=== PATIENT | male | born 1935 | race Caucasian/White ===

== ENCOUNTER → 2016-03-04 | Outpatient (CLI) | payer OTHER | LOC: MMPC 09:00 | PROVIDERS: ATTEND Family Medicine | DX: J20.9 Acute bronchitis, unspecified (principal); R05 Cough; F17.210 Nicotine dependence, cigarettes, uncomplicated | CPT/HCPCS: 99213; G0463 ==

== ENCOUNTER → 2016-05-01 | Outpatient (CLI) | payer OTHER | LOC: MMPC 09:00 | PROVIDERS: ATTEND Family Medicine | DX: M54.5 Low back pain (principal); F32.0 Major depressive disorder, single episode, mild | CPT/HCPCS: 99213; G0463 ==

== ENCOUNTER 2016-06-02 10:45 | Inpatient (IN) | payer OTHER ==
[2016-06-02] MEDS ORDERED: Sodium Chloride 0.9% 1,000 ML PRIMARY IV ONE (11:06)
--- NOTE | 2016-06-02 11:10 | EKG ---
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
[2016-06-02 11:26] LABS: VENOUS PH 7.37 (7.32-7.42)
[2016-06-02 11:32] LABS: HEMOGLOBIN 17.2 g/dL (14.0-18.0); MEAN CORPUSCULAR HEMOGLOBIN 37.6 PG (27-31); MEAN CORPUSCULAR VOLUME 100.4 FL (80-90); RED BLOOD COUNT 4.58 10^6/uL (4.70-6.10)
[2016-06-02 11:33] LABS: BASOPHILS % (AUTO) 0.2 % (0-1); EOSINOPHILS % (AUTO) 0.6 % (0-8); MEAN CORPUSCULAR HGB CONC 37.4 g/dL (33-37); MEAN PLATELET VOLUME 10.1 FL (7.4-12.2); MONOCYTES % (AUTO) 12.3 % (5-15); NEUTROPHILS % (AUTO) 67.5 % (50-80)
[2016-06-02 11:34] LABS: BASOPHILS # (AUTO) 0.02 10*3/UL; EOSINOPHILS # (AUTO) 0.06 10*3/UL; LYMPHOCYTES # (AUTO) 1.82 10*3/uL; MONOCYTES # (AUTO) 1.17 10*3/UL (0.3-0.8); NEUTROPHILS # (AUTO) 6.41 10*3/UL; PLATELET MORPHOLOGY COMMENT NORMAL MORPHOLOGY (NORM); RBC MORPHOLOGY COMMENT NORMAL MORPHOLOGY (NORM); WBC MORPHOLOGY COMMENT NORMAL MORPHOLOGY (NORM)
[2016-06-02 11:42] LABS: BUN/CREATININE RATIO 17.14 (6-20); CALCIUM 9.3 mg/dL (8.7-10.7); SERUM ALBUMIN 4.4 g/dL (3.5-4.8)
--- NOTE | 2016-06-02 11:55 | DI ---
AP CHEST X-RAY, 06/02/2016 11:06 AM : Clinical History: Hypoxia. Chest pain. Previous Exam: 10/06/2014. There is no acute soft tissue or bony abnormality. There is mild cardiomegaly for this projection, bu t without CHF. Discoid atelectasis is present in both costophrenic angles. There is no acute infiltra te or effusion. Mediastinal structures are normal. There are no pulmonary nodules. Readin. There is no acute infiltrate or effusion. 2. Mild cardiomegaly without CHF.
--- NOTE | 2016-06-02 12:32 | DI ---
AP /LATERAL CHEST X-RAY, 06/02/2016 11:36 AM : Clinical History: Cough. Dyspnea. Previous Exam: Earlier today at 1125 hours. There is no acute soft tissue or bony abnormality. There is mild cardiomegaly without CHF. Discoid at electasis is present in the costophrenic angles bilaterally along with some additional atelectasis pr obably in the right lower lobe. Mediastinal structures are normal. Reading: There is some atelectasis probably in the right lower lobe. Discoid atelectasis is present in both co stophrenic angles. There is no significant interval change.
[2016-06-02] MEDS ORDERED: IPRATROPIUM/ALBUTEROL SULFATE 3 ML NEB NEB ONE (14:06)
--- NOTE | 2016-06-02 14:11 | PDOC ---
Dyspnea HPI - General Chief Complaint: Dyspnea Stated Complaint: DYSPNEA/CONGESTION Date Seen by Provider: 06/02/16 Time Seen by Provider: 11:00 Source: POSITIVE: Patient, EMS, Other (daughter) Exam Limitations: POSITIVE: No limitations Treatment Prior to Arrival: REPORTS: None Nurse's Notes Reviewed & Considered: Yes EMS Report Reviewed & Considered: Verbal - History of Present Illness Initial Comments: The patient is an 81-year-old male who arrives to the emergency room by ambulance. Patient lives with his , who is convalescing from abdominal surgery for ischemic colitis. He states that for the past 3-4 days he has experienced dyspnea. He states he's been treating himself with his 's supplemental oxygen; the patient himself has not had any oxygen prescribed for him. He has been a smoker all of his adult life and he states he presently smokes only about 2 cigarettes per day. He was smoking up to a pack of cigarettes per day. He also complains of indigestion and heartburn. He states that for the last 10 days he has been having some hemoptysis. No fevers or chills. He describes a cloudy, mucoid sputum. He states that when he uses his 's oxygen he feels better. No chest pain. Body Location Affected: REPORTS: Chest, Abdomen Timing: REPORTS: Gradual, Getting Worse Duration: >1 week (7-10 days) Severity: Moderate Quality: REPORTS: "Pain" ("Heartburn") Initiating Event: DENIES: Upper Respiratory Illness, Out of Medications, Sports , Exercise, Aspiration, Choking, Allergy, Exposure - Smoke, Exposure - Mold, Exposure - Other Allergen Context: REPORTS: Rest Exacerbated By: REPORTS: Exertion, Coughing Associated Symptoms: REPORTS: Bloody Cough, Productive Cough Similar Symptoms Previously: No Recently seen/treated/hospitalized: No Any Prior Injuries Related to Current Complaint?: No - Patient Home Medications Home Medications: Home Medications Omeprazole 1 cap PO DAILY #90 cap 11/06/15 Diaper,Brief,Adult, Disposable [Depend] 1 each TOPICAL QID #160 each 11/14/15 Walker [Ultra-Light Rollator] 1 each MC ONCE #1 each 12/11/15 Fluticasone/Vilanterol [Breo Ellipta 100-25 Mcg Inh] 1 puff INH DAILY #1 puff Gabapentin 600 mg PO BID #60 cap 05/22/16 Hydrocodone/Acetaminophen [Hydrocodon-Acetaminophn 10-325] 1 tab PO Q4-6H #120 tab 05/22/16 Levothyroxine Sodium 25 mcg PO DAILY #30 tab 05/22/16 Meloxicam 15 mg PO DAILY #30 tab 05/22/16 Montelukast Sodium [Singulair] 1 tab PO DAILY #30 tab 05/22/16 Oxybutynin Chloride 5 mg PO TID #90 tab 05/22/16 Sertraline HCl [Zoloft] 1 tab PO QD #30 tab 05/22/16 Tamsulosin HCl [Flomax] 1 cap PO DAILY #30 cap 05/22/16 Tiotropium Roberts [Spiriva] 1 puff INH DAILY #30 cap 05/22/16 - Patient Allergies Allergies/Adverse Reactions: Allergies Allergy/AdvReac Type Severity Reaction Status Date / Time codeine Allergy Severe RASH Verified 06/02/16 10:51 Penicillins Allergy RASH Verified 06/02/16 10:51 aspirin AdvReac Intermediate DYSPHORIA Verified 06/02/16 10:51 contrast dye Allergy Anaphylaxis Uncoded 06/02/16 10:51 Past Medical History - heen HEENT History: Denies History Additional HEENT History: Full top and bottom Cardiovascular History: Arrhythmia, Other (please comment) Additional Cardiovasular History: irregular Respiratory History: COPD Gastrointestinal History: GERD Genitourinary History: Other (please comment) Additional Genitourinary History: prostrate cancer Endocrine History: Denies History Musculoskeletal History: Arthritis, Back Pain, Other (please comment) Prosthesis or Implant: No Additional Musculoskeletal History: pain left hip, patient stated he has bulging disks in his back Neurological History: Denies History Blood Disorders: Denies History Psychiatric History: Denies History History of Sexually Transmitted Diseases: No Cancer History: Other (please comment) Cancer Treatment / Date(s) of Treatment: SEED IMPLANT In Past Year Been Physically Harmed or Verbally Threatened: No History of MDRO: No History of Other Communicable Diseases: No Tobacco Use: Current Every Day Smoker Alcohol Use: Occasionally Substance Use Type: None Previous Surgical History: Yes Type / Date of Surgery: Ankle surgery 1966,CA treatment 1986 Anesthesia Reactions: No Malignant Hyperthermia: No Significant Family History: No pertinent family hx Past Medical History Reviewed: Reviewed - No Changes ROS - Limitations ROS Limitations: No Limitations Constitution: REPORTS: Denies Symptoms Cardiovascular: REPORTS: Denies Cardiac Symptoms Respiratory: REPORTS: Cough Non Productive, Cough Productive, Shortness Of Breath, Other (Hemoptysis) Neurological: REPORTS: Denies Neuro Symptoms Gastrointestinal: REPORTS: Other ("Heartburn") Endocrine: REPORTS: Denies Symptoms Musculoskeletal: REPORTS: Denies MS Symptoms Genitourinary: REPORTS: Denies Symptoms Eyes: REPORTS: Denies Symptoms ENT: REPORTS: Denies Symptoms Skin: REPORTS: Denies Skin Symptoms Lympathic: REPORTS: Denies Lympathic Symptoms Immunologic: POSITIVE: Denies Symptoms Psychiatric: POSITIVE: Denies Psych Symptoms Dyspnea Physical Exam - General Appearance General Appearance: REPORTS: Alert, Cooperative, No Acute Distress, No Evidence of Trauma - HEENT HEENT: POSITIVE: Head Inspection Nml, Eyes Inspection Nml, Ears Inspection Nml, Nose Inspection Nml, Oral/Dental Inspect. Nml, Pharynx Inspect. Nml, PERRL, EOMI - Neck Neck: REPORTS: Normal Inspection, No Carotid Bruit - Respiratory Respiratory: REPORTS: No Pleuritic Chest Pain, Speaks Full Sentences, No Pain on Inspiration, Rales (Both lung bases), Rhonchi (Diffusely). DENIES: Breath Sounds Normal, Respiratory Distress (Mild), Fatigue, Wheezes, Prolonged Expirations, Accessory Muscle Use, Retractions, Splinting, Dull on Percussion, Decreased Air Movement, Chest Wall Tenderness, Speaks Broken Sentences, Stridor , Respiratory Failure - Cardiovascular Cardiovascular: REPORTS: Regular Rate and Rhythm, Heart Sounds Normal, Equal Pulses, Strong Pulses, No Murmur, No Gallop, No Friction Rub, No JVD Peripheral Pulses: Radial (R): 2+, Radial (L): 2+ - Abdomen Abdomen: Soft: (All Quadrants), Normal Bowel Sounds: (All Quadrants), Denies Tenderness: (All Quadrants), No Splenomegaly: (All Quadrants), No Hepatomegaly: (All Quadrants), No Guarding: (All Quadrants), No Rebound: (All Quadrants), No Palpable Pulse: (All Quadrants), No Palpabale Mass: (All Quadrants), No Distention: (All Quadrants), No Rigidity: (All Quadrants) - Skin Skin: REPORTS: Intact, Normal For Race, Warm, Dry, No Rash - Extremities Extremity: Non-Tender: (All Extremities), Normal ROM: (All Extremities), Normal Inspection: (All Extremities) - Neurological / Psychological Neurological: POSITIVE: 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 Cannot do CTA of chest (patient has an elevated d-dimer) due to history of anaphylactic reaction to IV contrast. Ventilation perfusion scan scheduled for later this afternoon. Lab Results Reviewed: Yes (d-dimer 1.36; BNP 645; cardiac enzymes normal) Lab Results:: Laboratory Results 06/02/16 06/02/16 06/02/16 Range/Units 11:12 11:25 11:39 WBC 9.50 (4.8-10.8) 10^3/uL RBC 4.58 L (4.70-6.10) 10^6/uL Hgb 17.2 (14.0-18.0) g/dL Hct 46.0 (42.0-52.0) % MCV 100.4 H (80-90) FL MCH 37.6 H (27-31) PG MCHC 37.4 H (33-37) g/dL RDW Std Deviation 47.3 (39-50) fL RDW Coeff of Gabriella 12.8 (11.5-14.5) % Plt Count 222 (140-350) 10*3/uL MPV 10.1 (7.4-12.2) FL Immature Gran % (Auto) 0.2 (0-5) % Neut % (Auto) 67.5 (50-80) % Lymph % (Auto) 19.2 (10-50) % Hughes % (Auto) 12.3 (5-15) % Eos % (Auto) 0.6 (0-8) % Baso % (Auto) 0.2 (0-1) % Immature Gran # (Auto) 0.02 10*3/UL Neut # (Auto) 6.41 10*3/UL Lymph # (Auto) 1.82 10*3/uL Hughes # (Auto) 1.17 H (0.3-0.8) 10*3/UL Eos # (Auto) 0.06 10*3/UL Baso # (Auto) 0.02 10*3/UL WBC Morphology Comment Normal morphology (NORM) Plt Morphology Comment Normal morphology (NORM) RBC Morph Comment Normal morphology (NORM) D-Dimer 1.36 H (0.00-0.59) mg/L VBG pH 7.37 (7.32-7.42) VBG pCO2 39 L (45-55) mmHg VBG HCO3 23 (22-26) mmol/L VBG Base Excess -3 L (-2-2) MMOL/L Sodium 133 L (135-145) meq/L Potassium 4.2 (3.8-5.2) meq/L Chloride 99 (98-112) meq/L Carbon Dioxide 24 (23-33) meq/L Anion Gap 10 (5-20) BUN 12 (7-22) mg/dL Creatinine 0.7 (0.70-1.50) mg/dL Estimated GFR (>60 ml/min/1.73m(2)) BUN/Creatinine Ratio 17.14 (6-20) Glucose 107 (78-110) mg/dL Calculated Osmolality 275.0 (267-292) mOsm/kg Lactic Acid 1.4 (0.70-2.10) MMOL/L Calcium 9.3 (8.7-10.7) mg/dL Total Bilirubin 0.9 (0.3-1.2) mg/dL AST 25 (21-57) IU/L ALT 24 (21-72) IU/L Alkaline Phosphatase 60 (38-126) IU/L CK-MB (CK-2) 2.08 (0.00-5.00) NG/ML Troponin I < 0.012 (< 0.040) ng/mL NT-Pro-B Natriuret Pep 645 H (0-450) PG/ML Total Protein 7.9 (6.1-8.0) g/dL Albumin 4.4 (3.5-4.8) g/dL Globulin 3.4 (2.50-4.10) g/dL Albumin/Globulin Ratio 1.20 L (1.3-2.0) mg/g EKG Interpreted/Reviewed By Me:: Yes (Q waves in leads 3 and aVF) EKG Interpretation:: POSITIVE: Normal Sinus Rhythm, Normal Rate, Normal Intervals, Abnormal EKG (Compatible with old inferior myocardial infarction). NEGATIVE: Normal QRS (Q waves in leads 3 and aVF) - Patient's Progress Pain Medication Addressed: POSITIVE: Not Applicable School/Work Release Addressed: POSITIVE: Not Applicable Re-Examine Time: 13:30 Re-Examine Comment: Some clearing with DuoNeb nebulizer treatment. Patient maintains oxygenation between 93 and 95% on 4 L/m by nasal cannula. Discussed availability of VQ scan with radiologist. Discussed disposition of patient with Dr. Goel, hospitalist. Plan is to admit the patient and start on Coumadin and Lovenox for possible pulmonary embolism pending V/Q scan later this afternoon. Jonny also get venous duplex ultrasounds of the lower extremities. Status: POSITIVE: Improved, Re-Examined Air Movement: POSITIVE: Fair Quality Measure Initiative: CP/AMI: POSITIVE: EKG, ASA - Consult Counseled: POSITIVE: Patient, Family, RE: Lab Results, RE: Radiology Results, RE : DX, RE: Need for F/U Patient Care Time - Estimated PCT Patient Care Time (In Minutes): 55 Vital Signs - Recent Vital Signs Vital Signs: Vital Signs (Last 8 hours) Temp Pulse Resp BP Pulse Ox 06/02/16 10:46 96.4 F L 74 18 141/89 95 - VS Reviewed Vital Signs Reviewed: Yes Discharge Clinical Impression: Chronic obstructive lung disease, COPD with hypoxia, Hemoptysis, Heart burn Discharge Disposition: Admit to Inpatient Condition: Fair Date Decision to Admit to Inpatient: 06/02/16 Time Decision to Admit to Inpatient: 13:30
[2016-06-02] MEDS ORDERED: MORPHINE SULFATE 2 MG/1 ML IVP ONE (14:26)
[2016-06-02] MEDS ORDERED: NORMAL SALINE 10 ML SYRINGE FLUSH IVP ONE (14:35)
--- NOTE | 2016-06-02 15:02 | PDOC ---
History and Physical - History of Present Illness Date and Time of Service: 06/02/2016 4 PM Chief Complaint: Shortness of breath of one month duration, worsening cough about a week he duration, indigestion with burning pain in the chest of one week duration worse with taking deep breath History of Present Illness: This is an 81 years old male with medical history significant for history of hypertension, COPD, GERD, hypothyroidism and history of previous prostate cancer that was treated with the seed radiation therapy and osteoarthritis who came into the hospital with history of shortness of breath that has been going on for about a month, he said he's been using his oxygen and he started at 3l/min and then today is at 4 L/min, in addition to the shortness of breath he reports cough with phlegm production that's been going on for quite a while the family thought that there may be more nasal drainage now and may be more phlegm , he thought there may be some blood but could not quantify the amount though seems to be more mixed with the phlegm, he is also complaining from burning sensation in the chest described as indigestion, because of the symptoms he came into the ER and was admitted for COPD exacerbation. He had an elevated d- dimer and the plan was for him to have a VQ scan at one point as he is severely allergic to the iodine.. Patient is having trouble describing his symptoms accurately, unable to pinpoint duration and description of symptoms is vague so the history is somewhat limited. He is denying other symptoms is no fever no chills. Past Medical History Medical History: 1. COPD, not on oxygen at home, used his concentrator .2. Tobacco abuse3. History of prostate cancer status post seed implants4. Hypothyroidism5. Osteoarthritis in knees and back6. GERD7. Peripheral neuropathy, unclear etiology, on neurontin Surgical History: 1. Right knee replacement2. Left knee surgery3. Foot surgery Pertinent Family History: Significant for heart disease in his mother. Past Social History: Smokes. Drinks a double shot of whiskey a night on average. for 60 years. 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 Plays the [employer] and a guitar. Has 3 children, described ashealthy. Tobacco Use: Current Every Day Smoker Substance Use Type: None Alcohol Use: Occasionally Medication / Allergies Home Medications: Home Medications Medication Instructions Recorded Confirmed Type Omeprazole 1 cap PO DAILY #90 cap 11/06/15 06/02/16 Clinic Diaper,Brief,Adult, Disposable 1 each TOPICAL QID #160 each 11/14/15 06/02/16 Clinic [Depend] Walker [Ultra-Light Rollator] 1 each MC ONCE #1 each 12/11/15 06/02/16 Clinic Fluticasone/Vilanterol [Breo 1 puff INH DAILY #1 puff 05/22/16 06/02/16 Clinic Ellipta 100-25 Mcg Inh] Gabapentin 600 mg PO BID #60 cap 05/22/16 06/02/16 Clinic Hydrocodone/Acetaminophen 1 tab PO Q4-6H #120 tab 05/22/16 06/02/16 Clinic [Hydrocodon-Acetaminophn 10-325] Levothyroxine Sodium 25 mcg PO DAILY #30 tab 05/22/16 06/02/16 Clinic Meloxicam 15 mg PO DAILY #30 tab 05/22/16 06/02/16 Clinic Montelukast Sodium [Singulair] 1 tab PO DAILY #30 tab 05/22/16 06/02/16 Clinic Oxybutynin Chloride 5 mg PO TID #90 tab 05/22/16 06/02/16 Clinic Sertraline HCl [Zoloft] 1 tab PO QD #30 tab 05/22/16 06/02/16 Clinic Tamsulosin HCl [Flomax] 1 cap PO DAILY #30 cap 05/22/16 06/02/16 Clinic Tiotropium [place] [Spiriva] 1 puff INH DAILY #30 cap 05/22/16 06/02/16 Clinic Allergies/Adverse Reactions: Allergies Allergy/AdvReac Type Severity Reaction Status Date / Time codeine Allergy Severe RASH Verified 06/02/16 17:00 Penicillins Allergy RASH Verified 06/02/16 17:00 aspirin AdvReac Intermediate DYSPHORIA Verified 06/02/16 17:00 contrast dye Allergy Anaphylaxis Uncoded 06/02/16 17:00 Review of Systems - Review of Systems All Systems: Reviewed & No Additional Complaints Except as Stated Exam - General Additional General Exam Details: Sitting at the edge of the bed, coughing, holding a bag in his the hands I see some phlegm there is tinge of blood otherwise mostly phlegm. - Head Head Exam: POSITIVE: Normal Inspection - Eye Eye Exam: POSITIVE: Normal Appearance - ENT ENT Exam: POSITIVE: Normal Exam - Neck Neck Exam: POSITIVE: Normal Inspection - Respiratory Additional Respiratory Exam Details: Decreased air entry otherwise no wheezing I can hear it now - Cardiovascular Cardiovascular Exam: POSITIVE: RRR - GI/Abdominal GI/Abdominal Exam: POSITIVE: Normal Bowel Sounds, Non Tender, Non Distended, Soft - Rectal Rectal Exam: POSITIVE: Deferred - External Exam: POSITIVE: Deferred - Extremities Additional Extremities Exam Details: No edema noted, scar of previous operation noted on the right knee - Back Back Exam: POSITIVE: Normal Inspection - Neurological Neurological Exam: POSITIVE: Alert, Oriented x 3, Moves All Extremities Equally - Psychiatric Psychiatric Exam: POSITIVE: Anxious - Integumentary Integumentary Exam: POSITIVE: Normal Color Results - Labs CBC and BMP: 06/02/16 11:25 06/02/16 11:25 Labs - Last 24 Hours: Laboratory Results 06/02/16 Range/Units Unknown PT 10.2 (9.7-11.4) secs INR 0.99 (0.00-5.90) N/A APTT 27.3 (22.6-31.3) SECS - EKG Data -: EKG Interpreted by Me Rate: Normal (EKG shows Q waves in inferior leads there is no previous EKG.) - Imaging Status: Report Reviewed by Me (Chest x-ray shows some atelectasis probably in the right lower lobe, discoid atelectasis is present in both costophrenic angles.) Assessment and Plan - Patient Problems (1) Shortness of breath Current Visit: Yes Status: Acute Comment: This may be secondary to COPD exacerbation with bronchitis, I think though will do a CT of the chest without contrast first and then will do VQ scan because of elevated d-dimer. Then will probably consider antibiotics, steroid and bronchodilator. (2) Elevated d-dimer Current Visit: Yes Status: Acute Comment: If The VQ scan is negative, this may be secondary to inflammation and age. And we'll treat the COPD as I said with antibiotics, steroid and the bronchodilator. His pulmonary embolism well score is 1 which put him at low probability for PE. (3) Hemoptysis Current Visit: Yes Status: Acute Comment: I'm uncertain about the amount of hemoptysis, because what he showed me seem just to be specks of blood, the family didn't notice any bleeding. This is maybe secondary to the bronchitis as I said. We'll treat that as described above. Hopefully the VQ scan is negative and there is no PE. We'll watch his hemoglobin also. The clinical probability for PE as I said is 1 which put him at low probability for PE. (4) Heart burn Current Visit: Yes Status: Acute Comment: Does not sound like anginal pain sounded more like heartburn, will put him on Protonix. But will repeat his cardiac enzymes because of his vague description of symptoms (5) Hypothyroidism Current Visit: No Status: Acute Comment: Same medications Qualifiers: Hypothyroidism type: unspecified Qualifier Code(s): (E03.9) Hypothyroidism, unspecified Photo / Body Diagrams - Uploaded Photos Uploaded Photos:
[2016-06-02] MEDS ORDERED: LIDOCAINE W/ SODIUM BICARB 0.5 ML SYR SUBD PRN (15:38)
[2016-06-02] MEDS ORDERED: ALBUTEROL SULFATE 2.5 MG/3 ML NEB PRN (15:42)
[2016-06-02] MEDS ORDERED: ONDANSETRON 4 MG/2 ML VIAL IVP PRN (15:44)
[2016-06-02] MEDS ORDERED: HYDROcodone-APAP 10 MG-325 MG TABLET PO PRN (15:45)
--- NOTE | 2016-06-02 16:29 | DI ---
HISTORY: Cough with shortness of breath. COMPARISON: None available. TECHNIQUE: Contiguous axial images of the chest were obtained from the lung apices through the adren al glands. FINDINGS: There are inflammatory changes in the large and small airway with peribronchial infiltrate s, more in the bilateral lower lobes and air trapping seen more in the left lower lobe with bilateral upper lobes and air cysts. This can be seen in respiratory bronchiolitis obliterans due to infectio n, inflammation or hypersensitivity. Pulmonary artery hypertension is identified with large right an d left pulmonary artery. Heart is in the upper limits of normal. Vascular calcification is ntoed. There is evidence of a hiatal hernia with mild wall thickening. Renal cysts are seen, bilaterally. There is evidence of a heterogeneous bone density. A motion artifact given reconstruction artifact i s noted. No acute fracture seen. IMPRESSION: 1. There are inflammatory changes in the large and small airway with peribronchial infiltrates, more in the bilateral lower lobes and air trapping seen more in the left lower lobe with bilateral upper l obes and air cysts. This can be seen in respiratory bronchiolitis obliterans due to infection, infla mmation or hypersensitivity. Please correlate with history, as it can give restrictive pathophysiolo gy. 2. Pulmonary artery hypertension with large right and left pulmonary artery. Heart is upper limits o f normal. 3. Vascular calcification. 4. Hiatal hernia with mild wall thickening. 5. Renal cysts, bilaterally. 6. Heterogeneous bone density. Motion artifact given reconstruction artifact. No acute fracture see n. NOTIFICATION: The above findings were phoned to Cintia Brennan in the ER Department on 06/02/2016 at 06:39 PM EST.
[2016-06-02] MEDS: Pantoprazole Inj 40 MG in Normal Saline Flush 10 ML IVP SCH ×2 (17:04→20:00)
[2016-06-02] MEDS: cefTRIAXone Inj 1 GM in Sodium Chloride 0.9% 100 ML IV SCH (18:26)
[2016-06-02] MEDS ORDERED: Sodium Chloride 0.9% 250 ML IV ONE (18:30)
[2016-06-02] MEDS: IPRATROPIUM/ALBUTEROL SULFATE 3 ML NEB NEB SCH (18:41)
--- NOTE | 2016-06-02 19:51 | DI ---
PERFUSION LUNG SCAN, 06/02/2016 3:21 PM: Clinical History: Shortness of breath. Elevated D-dimer test. The patient has an IV contrast allergy. Previous Exam: None at this facility. Comparison is made with a noncontrast CT chest scan from 017. Technique: The patient was ventilated with Tc-99 DTPA aerosol, and scans obtained after the ventilati on show no active in the lung indicating the patient did not indicate to the greater aerosol tracer. The patient was then injected with 6 mCi of Tc-99 MAA IV, and 8 views were performed. There is irregular perfusion bilaterally, but all of these perfusion defects are subsegmental. The CT scan shows that this patient has scattered bullae indicating underlying bullous emphysema. Those les ions would account for these perfusion irregularities. Overall, this study carries a low to indetermi davonte probability for pulmonary embolism. There are no areas that would read as high probability for P E. Readin. Scans after the patient was ventilated with technetium DTPA aerosol show no activity in the lungs indicating the patient did not inhale the aerosol. 2. The perfusion scans show subsegmental irregularities bilaterally and with the CT scan demonstrati ng bullous emphysema, does subsegmental perfusion defects can be explained by the bullous lesions. Th ere is no segmental or lobar perfusion defect to indicate a high probability for PE. The scans are ae rated as low to indeterminate probability for PE.
[2016-06-02] MEDS: methylPREDNISolone 40 MG/1 ML VIAL IVP SCH (19:56)
[2016-06-02] MEDS: GABAPENTIN 300 MG CAPSULE PO SCH (20:01)
[2016-06-02] MEDS ORDERED: OXYBUTYNIN CHLORIDE 5 MG PO SCH (21:00)
[2016-06-03] MEDS: IPRATROPIUM/ALBUTEROL SULFATE 3 ML NEB NEB SCH ×4 (00:44→19:04)
[2016-06-03] MEDS: methylPREDNISolone 40 MG/1 ML VIAL IVP SCH ×4 (01:42→19:50)
[2016-06-03] MEDS: NORMAL SALINE 10 ML SYRINGE FLUSH IVP PRN ×3 (01:43→14:42)
[2016-06-03] MEDS: LEVOTHYROXINE 25 MCG TABLET PO SCH (04:58)
[2016-06-03 06:35] LABS: BASOPHILS # (AUTO) 0 10*3/UL; BASOPHILS % (AUTO) 0 % (0-1); EOSINOPHILS # (AUTO) 0 10*3/UL; EOSINOPHILS % (AUTO) 0 % (0-8); HEMATOCRIT 41.3 % (42.0-52.0); HEMOGLOBIN 14.6 g/dL (14.0-18.0); LYMPHOCYTES # (AUTO) 0.51 10*3/uL; MEAN CORPUSCULAR HEMOGLOBIN 36.2 PG (27-31); MEAN CORPUSCULAR HGB CONC 35.4 g/dL (33-37); MEAN CORPUSCULAR VOLUME 102.5 FL (80-90); MEAN PLATELET VOLUME 9.9 FL (7.4-12.2); MONOCYTES # (AUTO) 0.08 10*3/UL (0.3-0.8); MONOCYTES % (AUTO) 1.2 % (5-15); NEUTROPHILS % (AUTO) 91.3 % (50-80); RED BLOOD COUNT 4.03 10^6/uL (4.70-6.10)
[2016-06-03 06:52] LABS: PLATELET MORPHOLOGY COMMENT NORMAL MORPHOLOGY (NORM); RBC MORPHOLOGY COMMENT NORMAL MORPHOLOGY (NORM); WBC MORPHOLOGY COMMENT NORMAL MORPHOLOGY (NORM)
--- NOTE | 2016-06-03 07:26 | PDOC(PROG) ---
Date and Time of Service: 06/03/2016 7:24 AM Interval History: Subjective Patient feels better, a lot better he said compared to when he came in. There is no burning sensation in his chest anymore. Only when he uses the incentive spirometer he will feel some burning, the cough is more clear and he is coughing less. No blood anymore. His breathing is better. He still feeling weak. Objective : Data - Labs CBC and BMP: 06/03/16 06:25 06/02/16 11:25 Labs - Last 24 Hours: Laboratory Results 06/02/16 06/02/16 06/03/16 Range/Units 18:26 Unknown 06:25 WBC 6.90 (4.8-10.8) 10^3/uL RBC 4.03 L (4.70-6.10) 10^6/uL Hgb 14.6 (14.0-18.0) g/dL Hct 41.3 L (42.0-52.0) % MCV 102.5 H (80-90) FL MCH 36.2 H (27-31) PG MCHC 35.4 (33-37) g/dL RDW Std Deviation 46.5 (39-50) fL RDW Coeff of Gabriella 12.5 (11.5-14.5) % Plt Count 211 (140-350) 10*3/uL MPV 9.9 (7.4-12.2) FL Immature Gran % (Auto) 0.1 (0-5) % Neut % (Auto) 91.3 H (50-80) % Lymph % (Auto) 7.4 L (10-50) % [place] % (Auto) 1.2 L (5-15) % Eos % (Auto) 0 (0-8) % Baso % (Auto) 0 (0-1) % Immature Gran # (Auto) 0.01 10*3/UL Neut # (Auto) 6.30 10*3/UL Lymph # (Auto) 0.51 10*3/uL [place] # (Auto) 0.08 L (0.3-0.8) 10*3/UL Eos # (Auto) 0 10*3/UL Baso # (Auto) 0 10*3/UL WBC Morphology Comment Normal morphology (NORM) Plt Morphology Comment Normal morphology (NORM) RBC Morph Comment Normal morphology (NORM) PT 10.2 (9.7-11.4) secs INR 0.99 (0.00-5.90) N/A APTT 27.3 (22.6-31.3) SECS Troponin I < 0.012 < 0.012 (< 0.040) ng/mL Objective : Exam - General General Appearance: No Acute Distress, Cooperative - Head Head Exam: Normal Inspection, Atraumatic - Eye Eye Exam: Normal Appearance - ENT ENT Exam: Normal Exam - Neck Neck Exam: Normal Inspection - Respiratory Additional Respiratory Exam Details: Decreased air entry otherwise clear - Cardiovascular Cardiovascular Exam: RRR - GI/Abdominal GI/Abdominal Exam: Normal Bowel Sounds, Non Tender, Non Distended, Soft - Rectal Rectal Exam: Deferred - External Exam: Deferred - Extremities Extremities Exam: Normal Inspection - Back Back Exam: Normal Inspection - Neurological Neurological Exam: Alert, Oriented x 3, CN II-XII Intact, Moves All Extremities Equally - Psychiatric Psychiatric Exam: Normal Affect - Integumentary Integumentary Exam: Normal Color Assessment and Plan - Patient Problems (1) Shortness of breath Current Visit: Yes Status: Acute Comment: Looks more secondary to COPD exacerbation, the CT that he had showed peribronchial inflammation, we put him on antibiotics and steroid and bronchodilator and there is symptomatic improvement will continue with those. He is weak we will ask PT and OT to work with him. (2) Elevated d-dimer Current Visit: Yes Status: Acute Comment: The lung scan showed low probability, and the clinical probability for PE is also low. (3) Hemoptysis Current Visit: Yes Status: Acute Comment: Seems to be resolved (4) Heart burn Current Visit: Yes Status: Acute Comment: Continue Protonix, because of his vague description of symptoms we checked his troponin and it remained negative (5) Hypothyroidism Current Visit: No Status: Acute Comment: Same medications Qualifiers: Hypothyroidism type: unspecified Qualifier Code(s): (E03.9) Hypothyroidism, unspecified Photo / Body Diagrams - Uploaded Photos Uploaded Photos:
[2016-06-03] MEDS ORDERED: FLUTICASONE INH SCH (09:00)
[2016-06-03] MEDS ORDERED: VILANTEROL INH SCH (09:00)
[2016-06-03] MEDS ORDERED: TIOTROPIUM BROMIDE 18 MCG CAPSULE INH SCH (09:00)
[2016-06-03] MEDS: Montelukast Tab 10 MG TAB PO SCH (09:36)
[2016-06-03] MEDS: TAMSULOSIN 0.4 MG CAPSULE PO SCH (09:36)
[2016-06-03] MEDS: Sertraline Tab 50 MG TAB PO SCH (09:36)
[2016-06-03] MEDS: GABAPENTIN 300 MG CAPSULE PO SCH ×2 (09:36→19:59)
[2016-06-03] MEDS: Pantoprazole Inj 40 MG in Normal Saline Flush 10 ML IVP SCH ×2 (09:37→19:59)
--- NOTE | 2016-06-03 16:08 | PT.PROG ---
Progress Note Progress Note: S. Patient stated that he would like to go to therapy this afternoon. O. Patient ambulated 175 feet to the therapy gym Patient Performed exercises in the form of; marches, long arc quads, heel toe raises, resisted knee flexion, clamshells, ball squeezes all x 10 bilaterally, then used the nu-step x 15 minutes. A. Patient tolerated exercises well, he struggles with fatigue and weakness, however was willing to perform all exercises asked of him. Patient continues to struggle with balance. He would continue to benefit from skilled therapy at this time. P. continue POC.
--- NOTE | 2016-06-03 16:45 | OT.PROG ---
Progress Note Progress Note: S: pt stated he has a fracture in his R hip that has never been fixed and broke left which has been fixed. Reports falling a lot lately. O: Pt was seen today in the p.m. and transferred downstairs with 4 fww and CGA and he needed min A to prevent one fall as he lost balance. He completed 8 min on UE bike to increase activity tolerance and then transferred another 30 ft to mat table. While on EOB he completed ther ex with 2# in shoulder flex, bicep flex and shoulder press all x15 to increase UE strength. PT took over tx after exercises. A: pt does demonstrate weakness and does lose balance, and for safety purposes always maintain CGA. P: continue per plan of care.
[2016-06-03] MEDS: cefTRIAXone Inj 1 GM in Sodium Chloride 0.9% 100 ML IV SCH (17:44)
[2016-06-03] MEDS ORDERED: AZITHROMYCIN 500 MG VIAL IV ONE (18:40)
[2016-06-04] MEDS: IPRATROPIUM/ALBUTEROL SULFATE 3 ML NEB NEB SCH ×4 (00:08→19:20)
[2016-06-04] MEDS: methylPREDNISolone 40 MG/1 ML VIAL IVP SCH ×3 (01:36→20:36)
[2016-06-04] MEDS: LEVOTHYROXINE 25 MCG TABLET PO SCH (04:52)
[2016-06-04] MEDS: NORMAL SALINE 10 ML SYRINGE FLUSH IVP PRN ×3 (07:29→20:37)
--- NOTE | 2016-06-04 07:53 | PDOC(PROG) ---
Date and Time of Service: 06/04/2016 8:18 AM Interval History: Subjective Patient feels better his breathing is improving, his cough also improving. Shortness of breath also improved. No more hemoptysis Objective : Data - Labs CBC and BMP: 06/03/16 06:25 06/02/16 11:25 Labs - Last 24 Hours: Laboratory Results 06/03/16 Range/Units 06:25 Blood Type O POSITIVE Antibody Screen Negative Objective : Exam - General General Appearance: No Acute Distress, Cooperative - Head Head Exam: Normal Inspection - Eye Eye Exam: Normal Appearance - ENT ENT Exam: Normal Exam - Neck Neck Exam: Normal Inspection - Respiratory Additional Respiratory Exam Details: Decreased air entry otherwise clear - Cardiovascular Cardiovascular Exam: RRR - GI/Abdominal GI/Abdominal Exam: Normal Bowel Sounds, Non Tender, Non Distended, Soft - Rectal Rectal Exam: Deferred - Extremities Extremities Exam: Normal Inspection - Back Back Exam: Normal Inspection - Neurological Neurological Exam: Alert, Oriented x 3, CN II-XII Intact, Speech Intact / Clear - Psychiatric Psychiatric Exam: Normal Affect - Integumentary Integumentary Exam: Normal Color Assessment and Plan - Patient Problems (1) Shortness of breath Current Visit: Yes Status: Acute Comment: This is secondary to COPD exacerbation he is improving, I think we'll start cutting back on his steroid continue antibiotics and bronchodilator. He is still weak but I think he is getting stronger, I talked to OT yesterday and he had problem maintaining his balance so we'll continue PT and OT. Question home tomorrow or the day after. The growth of sputum showed Escherichia coli. Sensitive to ceftriaxone. Which we will continue another day. (2) Elevated d-dimer Current Visit: Yes Status: Acute Comment: The VQ scan was low probability per my discussion with Dr. Ontiveros. We' ll do ultrasound of his legs to complete the workup. I think it's more related to inflammation and age (3) Hemoptysis Current Visit: Yes Status: Acute Comment: This is resolved (4) Heart burn Current Visit: Yes Status: Acute Comment: Continue Protonix will switche to by mouth (5) Hypothyroidism Current Visit: No Status: Acute Comment: Same med Qualifiers: Hypothyroidism type: unspecified Qualifier Code(s): (E03.9) Hypothyroidism, unspecified Photo / Body Diagrams - Uploaded Photos Uploaded Photos:
[2016-06-04] MEDS ORDERED: PANTOPRAZOLE 40 MG TABLET PO ONE (08:59)
[2016-06-04] MEDS: TAMSULOSIN 0.4 MG CAPSULE PO SCH (09:05)
[2016-06-04] MEDS: Sertraline Tab 50 MG TAB PO SCH (09:05)
[2016-06-04] MEDS: GABAPENTIN 300 MG CAPSULE PO SCH ×2 (09:05→20:36)
[2016-06-04] MEDS: ENOXAPARIN SODIUM 30 MG/0.3 ML SYRINGE SUBCUT SCH (09:05)
[2016-06-04] MEDS: Montelukast Tab 10 MG TAB PO SCH (09:05)
[2016-06-04] MEDS: PANTOPRAZOLE 40 MG TABLET PO SCH ×2 (09:05→22:50)
--- NOTE | 2016-06-04 11:52 | PT.PROG ---
Progress Note Progress Note: S. Patient states that his knees and back are sore today. O. Patient ambulated 175 feet to the therapy gym where he performed exercises in the form of; standing balance x 3 minutes, heel toe raises, marches, long arc quads, ball squeezes, clamshells all x 15 bilaterally. Sit to stands x 10. Patient used the bicycle x 3 minutes then ambulated 175 feet back to his room. Patient was left in his chair with alarm and call light. A. Patient was unable to perform all exercises due to pain in knees and back. Patient continues to require min to mod assist with balance exercises and ambulation. He struggles with pain and weakness in his knees and back. He fatigued easily this morning, possibly due to increased exercise yesterday. He would continue to benefit from skilled therapy to increase strength, balance and endurance. P. Continue POC.
--- NOTE | 2016-06-04 12:11 | DI ---
VENOUS DOPPLER ULTRASOUND OF BOTH LOWER EXTREMITIES, 06/04/2016 7:51 AM: Clinical History: Elevated D-dimer test. Previous Exam: None at this facility. Technique: 2D real-time imaging is supplemented with color Doppler ultrasound. Compression and augmen tation maneuvers were performed. The deep venous system from the groin to the popliteal fossa for both legs is normal. The greater sap henous veins are also normal. Reading: Negative venous Doppler ultrasound of both lower extremities for deep vein thrombosis.
--- NOTE | 2016-06-04 16:17 | PT.PROG ---
Progress Note Progress Note: S. Patient stated that his knees are still sore however he would still like to go to therapy. O. Patient ambulated 175 feet to the therapy gym then performed long arc quads, marches, heel toe raises, ball squeezes, clamshells all x 15 with 1# weights, He used the nu-step x 10 minutes. standing balance x 3 minutes. He was left with OT for further therapy. A. Patient tolerated exercises fair, he continues to struggle with balance and fatigue. He was very unstable after walking to the therapy gym and nearly fell sitting on a table, he required mod assist to correct his balance and sit safely. Patient requires frequent verbal cues to use his walker correctly and safely. Patient would continue to benefit from skilled therapy to increase strength, endurance and balance. P. Continue POC.
--- NOTE | 2016-06-04 16:48 | OT.PROG ---
Progress Note Progress Note: S: pt stated that he feels weak. thinks he may go home tomorrow. O: pt was seen in room in the p.m. and completed transfer downstairs with walker , taking one break. Once downstairs he completed 8 min on Ue bike to increase activity tolerance. He then transferred to mat table and completed UE exercises with 3# dumbbells in shoulder press, bicep flex shoulder flex and x10 sit to stands with break after 8. He returned to his room, once again needing x1 break. He was left upright in bed with alarm on and call light within reach. A: pt does display weakness in LE and activity tolerance is low especially during ambulation. He may continue to benefit from strengthening activities to address this deficit. P:continue per plan of care.
[2016-06-04] MEDS ORDERED: Sodium Chloride 0.9% 250 ML IV ONE (18:03)
[2016-06-04] MEDS ORDERED: AZITHROMYCIN 500 MG VIAL IV ONE (18:05)
[2016-06-04] MEDS: cefTRIAXone Inj 1 GM in Sodium Chloride 0.9% 100 ML IV SCH (18:07)
[2016-06-05] MEDS: IPRATROPIUM/ALBUTEROL SULFATE 3 ML NEB NEB SCH ×3 (00:28→14:45)
[2016-06-05] MEDS: LEVOTHYROXINE 25 MCG TABLET PO SCH (04:42)
[2016-06-05] MEDS: TAMSULOSIN 0.4 MG CAPSULE PO SCH (08:03)
[2016-06-05] MEDS: Sertraline Tab 50 MG TAB PO SCH (08:03)
[2016-06-05] MEDS: Montelukast Tab 10 MG TAB PO SCH (08:03)
[2016-06-05] MEDS: NORMAL SALINE 10 ML SYRINGE FLUSH IVP PRN (08:04)
[2016-06-05] MEDS: ENOXAPARIN SODIUM 30 MG/0.3 ML SYRINGE SUBCUT SCH (08:04)
[2016-06-05] MEDS: methylPREDNISolone 40 MG/1 ML VIAL IVP SCH (08:04)
[2016-06-05] MEDS: PANTOPRAZOLE 40 MG TABLET PO SCH (08:04)
[2016-06-05] MEDS: GABAPENTIN 300 MG CAPSULE PO SCH (10:20)
--- NOTE | 2016-06-05 10:42 | OTI REPORT ---
Thank you for the referral of Vitaliy Mao. He was seen on 06/03/16 for an occupational therapy inpatient evaluation secondary to heartburn, chest pain, and difficulty breathing. SUBJECTIVE: The patient is an 81-year-old male who is being seen secondary to having massive heartburn. The patient was also having some chest pain and difficulty breathing. The patient lives at home with his . He states prior to admission he was responsible for most all of the ADLs including the housekeeping tasks, cooking, cleaning, etc. He does have a tub/shower and a shower bench in the tub and a long handled bath sponge. He does not have a higher toilet seat, but he says that he can grab the counter next to the toilet to stand up. He states he has had some falls in which he has broken his ribs just after January. He does have a four wheeled walker. He states that his feet are starting to go numb and he has a hard time with dizziness when it gets cloudy out and he is driving. The patient reports that he is still driving at this point in time. PAST MEDICAL HISTORY: Past medical history can be found in the patient's medical record. OBJECTIVE FINDINGS: General observations: The patient was alert and oriented x4 but he definitely demonstrated some confusion with conversation today. Per his vision and feet concerns, he may need a driving evaluation at some point in time. Bed mobility: The patient was able to come from supine to sit independently. Transfers: The patient requires min assist for functional transfers. He loses his balance approximately 10-20% of the time when upright. He says that his feet and legs do give out on him. Range of motion: While sitting edge of bed he had within functional limits for upper extremity range of motion. Strength: Strength for shoulder flexion was 4/5. Abduction was 3+/5. Shoulder extension and adduction were 4+/5. External and internal rotation were 4/5. Elbow flexion/extension were 4+/5. Wrist flexion/extension were 4/5. Endurance: It was observed that the patient's energy conservation was fair to poor. He became very short of breath with exertion. Activities of daily living: The patient was able to don and doff his socks independently. Balance: Today we were not able to assess for BPPV but the patient says he has had dizziness for the last 5-6 years and this may need to be assessed. ASSESSMENT: Problem List: Decreased ability to perform functional transfers Decreased safety Patient needs further assessment of vestibular system Patient needs education on home safety Decreased endurance Short-Term Goals: To be met by discharge from inpatient: Patient will be able to complete a toilet transfer independently. Patient will be able to demonstrate three energy conservation techniques independently. Patient will complete a CPT test for cognitive processing abilities. Patient will be assessed for BPPV and other dizziness related disorders. Patient will be able to obtain clothes from closet and take them to bed to don independently without loss of balance. Long-Term Goals: To be met following discharge from inpatient: Patient will be able to return home demonstrating independence and safety with all activities of daily living and functional transfers. TREATMENT PLAN: Patient will be seen B.I.D during the week and one time per day over the weekend as an inpatient to address the above goals and objectives. Patient may benefit from a home evaluation eventually. INITIAL TREATMENT: Treatment today consisted of the initial evaluation followed by the patient completing dressing tasks and functional transfers to toilet with min assist. Functional mobility in the room was definitely a safety hazard as he does tend to lose his balance secondary to decreased sensation in lower extremities and weakness. MOLLY
--- NOTE | 2016-06-05 11:19 | PDOC(PROG) ---
Interval History: Patient is improving from his COPD possible bronchitis he says he is back to his baseline but is very still unstable and that most likely needing oxygen Objective : Data - Labs CBC and BMP: 06/03/16 06:25 06/02/16 11:25 Objective : Exam - General General Appearance: Cooperative - Respiratory Respiratory Exam: Decreased Breath Sounds - Cardiovascular Cardiovascular Exam: RRR, No Murmur, No Clicks, No Gallops - GI/Abdominal GI/Abdominal Exam: Normal Bowel Sounds, Non Distended, Soft - Extremities Extremities Exam: No Clubbing Present, No Edema Present, No Cyanosis Present - Neurological Neurological Exam: Alert, Oriented x 3, CN II-XII Intact, No Facial Droop - Psychiatric Psychiatric Exam: Normal Affect, Normal Mood Assessment and Plan - Patient Problems (1) COPD with hypoxia Current Visit: Yes Status: Acute (2) Chronic obstructive lung disease Current Visit: Yes Status: Acute (3) Shortness of breath Current Visit: Yes Status: Acute (4) Hypothyroidism Current Visit: No Status: Acute Qualifiers: Hypothyroidism type: unspecified Qualifier Code(s): (E03.9) Hypothyroidism, unspecified (5) Abnormality of gait due to impairment of balance Current Visit: Yes Status: Acute - Assessment / Plan Additional Assessment/Plan Details: #1 COPD exacerbation with hypoxia requiring oxygen bronchitis on CT scan continue Rocephin and Zithromax steroids if not added yet #2 generalized weakness with gait instability discussed the case with the PTOT patient will need the skilled the help today we have scheduled a home health eval also very high risk for fall I discuss all this with the patient nursing and physical therapist so she'll work her continue current treatment for now Photo / Body Diagrams - Uploaded Photos Uploaded Photos:
--- NOTE | 2016-06-05 11:39 | PTI REPORT ---
Thank you for the referral of Vitaliy Mao. He was seen on 06/03/16 for an inpatient evaluation secondary to weakness. SUBJECTIVE: The patient is an 81-year-old male who states that over the last month he has had increased difficulty with shortness of breath due to his COPD. The patient has been using 3-4 liters of oxygen at all times while at home. The patient states that he lives here in [place] with his . His has been undergoing multiple medical issues over the last couple of months and has been in and out of the hospital. The patient states that they do have a assistant in nursing that comes in and helps his due to her recent surgery but otherwise he is primarily in charge of doing cooking, cleaning, laundry, and driving. The patient states that he does have his daughter and son-in-law who live here in town and do help out as needed. The patient uses a four wheeled walker to get around with and states that he does have a ramp into and out of his home. He does have a little step to get into his home. The patient reports a history of multiple falls due to poor balance and states that he does get dizzy at times. He has fallen when he has gotten dizzy. Also he has gotten dizzy sometimes when driving and has to tie puller until his dizzy spell is over. 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 PAST MEDICAL HISTORY: Past medical history can be found in the patient's medical record. OBJECTIVE FINDINGS: Objective findings: The patient is alert and oriented to setting upon PT arrival. The patient was sitting up in bed on two liters of oxygen. Strength: The patient demonstrated 2/5 bilateral lower extremity strength. Balance: The patient demonstrated good seated balance and fair dynamic seated balance. The patient demonstrated poor initial standing balance with using his lower extremities on the bed to help hold himself up. 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 He states that he has very poor feeling in his feet. General observations: The patient's feet were inspected; he doesn't have any open wounds on his feet, just very poor nail care and callouses on his toes. Transfers: The patient was able to move from a seated to standing position with stand by assist x1 for safety. Ambulation: The patient was able to ambulate x50 feet with a four wheeled walker. During this time ambulating the patient started to stumble toward the end of the 50 feet and needed mod assist x1 to help hold him steady and along the stumbling activity he did to have a seated rest break. The patient stated that he became very fatigued and a little dizzy. The patient required a three minute rest break before he was willing to try ambulating further. The patient was able to then ambulate 100 feet back to his room with contact guard assist x1 for safety and the use of a four wheeled walker. The patient didn't have any loss of balance the second time that we did ambulate and the patient was able to go from a standing to seated transfer with verbal cueing needed for hand placement. Vitals: The patient's oxygen saturation was checked once he was sitting. He was at 89% on two liters of oxygen. His heart rate was 90 beats per minute. With max verbal cueing for proper breathing techniques, the patient was able to bring his oxygen saturation to 91% after a minute of seated rest break. The patient states that he does not like to perform the breathing activities as he states that he feels like he gets chest pain during the deep breathing. ASSESSMENT: The patient has fair rehab potential due to his medical history with COPD Problem List: Decreased endurance and activity tolerance. Poor balance with history of multiple falls Dizziness Short-Term Goals: To be met by discharge from inpatient: Patient will be able to tolerate 30 minutes of physical therapy activities with rest breaks as needed while on two liters of oxygen. Patient will be able to ambulate at least 150 feet with four wheeled walker safely without loss of balance on two liters of oxygen. Patient will be able to perform all transfers, especially his seated to stand transfer independently and safely and demonstrate at least fair initial standing balance to decrease his fall risk. Patient's dizziness symptoms will be looked into closer with testing for possible BPPV or other vestibular disorders that may be contributing to his poor balance and bouts of spinning dizziness. Long-Term Goals: To be met following discharge from inpatient: Patient may be seen by outpatient physical therapy if deemed necessary to continue to improve his endurance and also to help with his balance as the patient is a VERY high fall risk. TREATMENT PLAN: Patient will be seen B.I.D during the week and one time per day over the weekend as an inpatient for working on improving his endurance and activity tolerance, improving overall balance to decrease his fall risk, and addressing symptoms of dizziness. INITIAL TREATMENT: Treatment today consisted of the initial evaluation. At the end of treatment the patient laid back down in bed which he was able to do independently. The patient performed bed mobility independently. The alarm was set and call light was placed within reach. [facility]
--- NOTE | 2016-06-05 12:55 | EKG ---
[address] [address] Measurements Intervals [place] Rate: 66 P: 68 CT: 145 QRS: -41 QRSD: 120 T: 24 QT: 398 QTc: 411 Interpretive Statements SINUS RHYTHM WITH OCCASIONAL VENTRICULAR PREMATURE COMPLEXES MARKED LEFT AXIS DEVIATION [QRS AXIS < -30] MODERATE INTRAVENTRICULAR CONDUCTION DELAY [110+ ms QRS DURATION] Compared to ECG 06/02/2016 10:50:21 Ventricular premature complex(es) now present but no acute ST changes Left-axis deviation now present Intraventricular conduction delay now present Myocardial infarct finding no longer present (QS in III but nubbin R-wave now present in aVF and II) Electronically Signed On 06-09-16 10:26:51 MDT by Cristopher Oscar MD [email or web address]
[2016-06-05 16:30] VITALS: RESP 18; TEMP 98
--- NOTE | 2016-06-05 17:26 | PT.PROG ---
Progress Note Progress Note: S. Patient states that he is feeling better today. O. Patient ambulated 175 feet to the therapy gym where he used the nu-step x 10 minutes then performed seated exercises in the form of; heel toe raises, marches , long arc quads, ball squeezes, clamshells, resisted knee flexion and sit to stands all x 10 bilaterally. Patient ambulated 175 feet back to his room where he was left in his chair with alarm and call light. A. Patient continues to make gains with strengthening and mobility, he continues to be slightly unstable when fatigued, he would continue to benefit from outpatient therapy to increase strength and endurance. P. continue POC. until discharged.
--- NOTE | 2016-06-05 17:26 | DCSUMMARY ---
Hospitalization Summary Hospital Course: Final Discharge Diagnosis: Current Visit Problems Problem Status Priority Diagnosed Code Abnormality of gait due to impairment of balance Acute R26.89 COPD with hypoxia Acute J44.9, R09.02 Chronic obstructive lung disease Acute J44.9 Elevated d-dimer Acute R79.89 Heart burn Acute R12 Hemoptysis Acute R04.2 Shortness of breath Acute R06.02 Diagnostic Data, Laboratory Data, and Procedures of Signifigance: Laboratory Results 06/02/16 06/02/16 06/02/16 Range/Units 11:12 11:25 11:39 WBC 9.50 (4.8-10.8) 10^3/uL RBC 4.58 L (4.70-6.10) 10^6/uL Hgb 17.2 (14.0-18.0) g/dL Hct 46.0 (42.0-52.0) % MCV 100.4 H (80-90) FL MCH 37.6 H (27-31) PG MCHC 37.4 H (33-37) g/dL RDW Std Deviation 47.3 (39-50) fL RDW Coeff of Gabriella 12.8 (11.5-14.5) % Plt Count 222 (140-350) 10*3/uL MPV 10.1 (7.4-12.2) FL Immature Gran % (Auto) 0.2 (0-5) % Neut % (Auto) 67.5 (50-80) % Lymph % (Auto) 19.2 (10-50) % Bladen % (Auto) 12.3 (5-15) % Eos % (Auto) 0.6 (0-8) % Baso % (Auto) 0.2 (0-1) % Immature Gran # (Auto) 0.02 10*3/UL Neut # (Auto) 6.41 10*3/UL Lymph # (Auto) 1.82 10*3/uL Bladen # (Auto) 1.17 H (0.3-0.8) 10*3/UL Eos # (Auto) 0.06 10*3/UL Baso # (Auto) 0.02 10*3/UL WBC Morphology Comment Normal morphology (NORM) Plt Morphology Comment Normal morphology (NORM) RBC Morph Comment Normal morphology (NORM) PT (9.7-11.4) secs INR (0.00-5.90) N/A APTT (22.6-31.3) SECS D-Dimer 1.36 H (0.00-0.59) mg/L VBG pH 7.37 (7.32-7.42) VBG pCO2 39 L (45-55) mmHg VBG HCO3 23 (22-26) mmol/L VBG Base Excess -3 L (-2-2) MMOL/L Sodium 133 L (135-145) meq/L Potassium 4.2 (3.8-5.2) meq/L Chloride 99 (98-112) meq/L Carbon Dioxide 24 (23-33) meq/L Anion Gap 10 (5-20) BUN 12 (7-22) mg/dL Creatinine 0.7 (0.70-1.50) mg/dL Estimated GFR (>60 ml/min/1.73m(2)) BUN/Creatinine Ratio 17.14 (6-20) Glucose 107 (78-110) mg/dL Calculated Osmolality 275.0 (267-292) mOsm/kg Lactic Acid 1.4 (0.70-2.10) MMOL/L Calcium 9.3 (8.7-10.7) mg/dL Total Bilirubin 0.9 (0.3-1.2) mg/dL AST 25 (21-57) IU/L ALT 24 (21-72) IU/L Alkaline Phosphatase 60 (38-126) IU/L CK-MB (CK-2) 2.08 (0.00-5.00) NG/ML Troponin I < 0.012 (< 0.040) ng/mL NT-Pro-B Natriuret Pep 645 H (0-450) PG/ML Total Protein 7.9 (6.1-8.0) g/dL Albumin 4.4 (3.5-4.8) g/dL Globulin 3.4 (2.50-4.10) g/dL Albumin/Globulin Ratio 1.20 L (1.3-2.0) mg/g Blood Type Antibody Screen 06/02/16 06/02/16 06/03/16 Range/Units 18:26 Unknown 06:25 WBC 6.90 (4.8-10.8) 10^3/uL RBC 4.03 L (4.70-6.10) 10^6/uL Hgb 14.6 (14.0-18.0) g/dL Hct 41.3 L (42.0-52.0) % MCV 102.5 H (80-90) FL MCH 36.2 H (27-31) PG MCHC 35.4 (33-37) g/dL RDW Std Deviation 46.5 (39-50) fL RDW Coeff of Gabriella 12.5 (11.5-14.5) % Plt Count 211 (140-350) 10*3/uL MPV 9.9 (7.4-12.2) FL Immature Gran % (Auto) 0.1 (0-5) % Neut % (Auto) 91.3 H (50-80) % Lymph % (Auto) 7.4 L (10-50) % Bladen % (Auto) 1.2 L (5-15) % Eos % (Auto) 0 (0-8) % Baso % (Auto) 0 (0-1) % Immature Gran # (Auto) 0.01 10*3/UL Neut # (Auto) 6.30 10*3/UL Lymph # (Auto) 0.51 10*3/uL Bladen # (Auto) 0.08 L (0.3-0.8) 10*3/UL Eos # (Auto) 0 10*3/UL Baso # (Auto) 0 10*3/UL WBC Morphology Comment Normal morphology (NORM) Plt Morphology Comment Normal morphology (NORM) RBC Morph Comment Normal morphology (NORM) PT 10.2 (9.7-11.4) secs INR 0.99 (0.00-5.90) N/A APTT 27.3 (22.6-31.3) SECS D-Dimer (0.00-0.59) mg/L VBG pH (7.32-7.42) VBG pCO2 (45-55) mmHg VBG HCO3 (22-26) mmol/L VBG Base Excess (-2-2) MMOL/L Sodium (135-145) meq/L Potassium (3.8-5.2) meq/L Chloride (98-112) meq/L Carbon Dioxide (23-33) meq/L Anion Gap (5-20) BUN (7-22) mg/dL Creatinine (0.70-1.50) mg/dL Estimated GFR (>60 ml/min/1.73m(2)) BUN/Creatinine Ratio (6-20) Glucose (78-110) mg/dL Calculated Osmolality (267-292) mOsm/kg Lactic Acid (0.70-2.10) MMOL/L Calcium (8.7-10.7) mg/dL Total Bilirubin (0.3-1.2) mg/dL AST (21-57) IU/L ALT (21-72) IU/L Alkaline Phosphatase (38-126) IU/L CK-MB (CK-2) (0.00-5.00) NG/ML Troponin I < 0.012 < 0.012 (< 0.040) ng/mL NT-Pro-B Natriuret Pep (0-450) PG/ML Total Protein (6.1-8.0) g/dL Albumin (3.5-4.8) g/dL Globulin (2.50-4.10) g/dL Albumin/Globulin Ratio (1.3-2.0) mg/g Blood Type O POSITIVE Antibody Screen Negative History and Physical pertinent to Admission: Past Medical History Medical History: 1. COPD, not on oxygen at home, used his concentrator .2. Tobacco abuse3. History of prostate cancer status post seed implants4. Hypothyroidism5. Osteoarthritis in knees and back6. GERD7. Peripheral neuropathy, unclear etiology, on neurontin Surgical History: 1. Right knee replacement2. Left knee surgery3. Foot surgery Pertinent Family History: Significant for heart disease in his mother. Past Social History: Smokes. Drinks a double shot of whiskey a night on average. for 60 years. 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 Plays the [employer] and a guitar. Has 3 children, described ashealthy. Tobacco Use: Current Every Day Smoker Substance Use Type: None Alcohol Use: Occasionally Photo / Body Diagrams - Uploaded Photos Uploaded Photos: Addendum entered and electronically signed by LUIS ANGEL TUCKER 06/05/16 11:47: I have talked to the SENIOR MERCHANDISER who walked the patient he was 96% while walking without oxygen and then the sitting down he is at 92% without oxygen Course of Hospitalization: This very nice 80-year-old gentleman past medical history significant for hypertension, COPD, GERD also has a history of previous prostate cancer comes into the hospital for shortness of breath which is been going on for about a month has been using his 's oxygen at 3 L a minute admitted and diagnosed with COPD exacerbation patient was started on antibiotics steroids the improved dramatically to the point where we walked him today and he did not need any oxygen he was 96% walking and 92 when he sat down also he was evaluated by PT OT and home health eval that would be making some changes to his house sells for less chances of tripping he will continue with outpatient physical therapy I discuss all this with the patient and the physical therapist and his daughter. Because of his high d-dimer and VQ scan was done which was negative for PE CT scan of the chest was done which showed bronchitis and sputum culture grew Escherichia coli sensitive to ceftriaxone he will be sent home on Zithromax 500 once a day for 3 days and Augmentin 875 one 25 twice a day for 5 more days will have a follow-up letter with his primary care physician early next week patient is black to his normal self and is happy to be going home I advised him very strongly not to smoke Gonzalo detrimental to his life. On the date of discharge, the patient was examined: Gen.: No acute distress, alert, nontoxic Heart: Regular rate and rhythm, no murmurs, clicks, gallops, or rubs Lungs: Clear to auscultation bilaterally, breathing is nonlabored Abdomen/GI: Normal tones on auscultation, soft, nontender, nondistended Musculoskeletal/extremities: No clubbing, cyanosis, or edema Vitals reviewed and are listed below Assessment and Plan: 1. As per discharge assessments above 2. Disposition: 3. Condition on discharge, stable and improved. 4. Diet: regular diet 5. Activities: resume normal activities 6. Follow-Up: 1. PCP Wm Carney appointment will be made tomorrow morning I did try to call Dr. Carney today but today was his day off 2. 7. Medications at the Time of Discharge: Home Medications Medication Instructions Recorded Confirmed Type Omeprazole 1 cap PO DAILY #90 cap 11/06/15 06/02/16 Clinic Diaper,Brief,Adult, Disposable 1 each TOPICAL QID #160 each 11/14/15 06/02/16 Clinic [Depend] Walker [Ultra-Light Rollator] 1 each MC ONCE #1 each 12/11/15 06/02/16 Clinic Fluticasone/Vilanterol [Breo 1 puff INH DAILY #1 puff 05/22/16 06/02/16 Clinic Ellipta 100-25 Mcg INH] Gabapentin 600 mg PO BID #60 cap 05/22/16 06/02/16 Clinic Hydrocodone/Acetaminophen 1 tab PO Q4-6H #120 tab 05/22/16 06/02/16 Clinic [Hydrocodon-Acetaminophn 10-325] Levothyroxine Sodium 25 mcg PO DAILY #30 tab 05/22/16 06/02/16 Clinic Meloxicam 15 mg PO DAILY #30 tab 05/22/16 06/02/16 Clinic Montelukast Sodium [Singulair] 1 tab PO DAILY #30 tab 05/22/16 06/02/16 Clinic Oxybutynin Chloride 5 mg PO TID #90 tab 05/22/16 06/02/16 Clinic Sertraline HCl [Zoloft] 1 tab PO QD #30 tab 05/22/16 06/02/16 Clinic Tamsulosin HCl [Flomax] 1 cap PO DAILY #30 cap 05/22/16 06/02/16 Clinic Tiotropium Maunie [Spiriva] 1 puff INH DAILY #30 cap 05/22/16 06/02/16 Clinic Amox Tr/Potassium Clavulanate 1 each PO BID #10 tablet 06/05/16 Rx [Augmentin 875-125 Tablet] Azithromycin [Zithromax Tri-Artur] 500 mg PO DAILY #3 tab 06/05/16 Rx predniSONE Tab [Deltasone Tab] 40 mg PO DAILY #10 tab 06/05/16 Rx 8. Time, care, counseling and coordination of care for this discharge is greater than 30 minutes. Exam - Vitals Vital Signs: Vital Signs Temperature 98 F Temperature Source Temporal Artery Scan Pulse Rate [Apical] 64 Pulse Rate [Pulse Oximeter] 86 Pulse Rate [Telemetry] 86 Pulse Rate 77 Respiratory Rate 18 Blood Pressure [Right Arm] 151/80 Blood Pressure [Left Arm] 162/80 Blood Pressure 157/74 Pulse Ox 91 Oxygen Flow Rate .5 Oxygen Delivery Method Room Air Height 6 ft 1 in Weight 86.999 kg Patient Problems - Patient Problem List (1) COPD with hypoxia Current Visit: Yes Status: Acute (2) Chronic obstructive lung disease Current Visit: Yes Status: Acute (3) Shortness of breath Current Visit: Yes Status: Acute (4) Hypothyroidism Current Visit: No Status: Acute Qualifiers: Hypothyroidism type: unspecified Qualifier Code(s): (E03.9) Hypothyroidism, unspecified (5) Abnormality of gait due to impairment of balance Current Visit: Yes Status: Acute
[2016-06-06] MEDS ORDERED: predniSONE Tab 20 MG TAB PO SCH (09:00)
--- NOTE | 2016-06-09 10:33 | OT AM DAY ---
Diagnosis : Weakness AM - Occupational Therapy S: The patient reports he had a pretty good breakfast. The patient's was admitted to the hospital yesterday secondary to having increased difficulties at home. O: The patient was in bed upon the therapist's arrival. He was able to come from supine to sit independently. While sitting edge of bed the patient worked on dressing himself. He was able to don socks and shorts independently while sitting. While standing however he needed contact guard assist for balance. When then had the patient go to the sink to complete hygiene activities. The patient was able to stand at the sink and wash his hair and face and brush his teeth. The patient was able to stand x10 minutes to complete hygiene activities. He did lose his balance once when turning toward the walker. The patient then needed to use the restroom. He required contact guard assist for toilet transfer and hygiene. Downstairs in therapy the patient worked on upper extremity strengthening activities including upper body ergometer x4 minutes forward and 4 minutes backward followed by power web and digi-flex x20 repetitions each. A: The patient is making gains; however, he did have some balance issues today when standing and doing turning activities. P: Continue seeing patient BID during the week and one time per day over the weekend for upper extremity strengthening, ADLs, and overall functional mobility. MOLLY
--- NOTE | 2016-06-09 10:52 | OT AM DAY ---
Diagnosis : Weakness AM - Occupational Therapy S: The patient states he would like to take a shower this morning. This was a good opportunity to see how his safety was within the shower. O: Today the patient was able to walk with wheeled walker to the shower. He did sit in his seat while in the shower. Today he was able to wash both upper extremities, lower extremities, feet, and stomach. He needed mild assistance with his back, but was able to get the first quarter and lower quarter of his back. He did need contact guard assist when getting out of the shower for balance. While sitting on the toilet he was able to dress self after set up. The patient then went to the sink to complete hygiene activities including shaving which took 10 minutes and he demonstrated good balance. The patient then went down to therapy where he worked on upper extremity strengthening including upper body ergometer both forward and backward followed by wall pulleys in all planes and ranges with two to four kilograms x10 repetitions each. A: The patient is making some gains. He still has some balance difficulties at times when in a dynamic stance. We are planning to do a home evaluation this afternoon to make sure that the patient is safe within his home. P: Continue seeing patient BID during the week and one time per day over the weekend for upper extremity strengthening, ADLs, and overall functional mobility. MOLLY
--- NOTE | 2016-06-09 11:08 | OT PM DAY ---
Diagnosis : Weakness PM - Occupational Therapy (Home Evaluation) S: The patient was seen for a home evaluation today. O: The patient was able to transfer into the truck with stand by assist. We went to his house which was about two miles from the hospital. The patient was able to get out of the truck with stand by assist. He does have half sidewalk/half grass where he needs to use his walker to get into his house and then he has a ramp on the front of his house as well as the back part of his house. He was able to go up the ramp with his walker. He opened the door and was able to go through the door independently. We walked into the patient's living room. There are some throw rugs in the home; however, most of them are underneath tables and not in the walkway. However, there were two rugs that were noticed today. One led to the outside porch. The occupational therapist did poultry picking machine tender and asked the patient to not put that one down as he does somewhat trip on this throw rug. The patient did go to his outside porch where he spends some time. We did move some furniture around to make the walkway more open including a chair and some other furniture so that the patient has a decreased chance of falling. The patient then walked back into his home. Kitchen: There is a center island in his kitchen where the patient was able to demonstrate reaching low into his refrigerator to get items out of the fridge as well as items higher in a cupboard. He was able to hang onto the countertops which were at a good distance to be able to hang onto with either hand to get items from his cupboard or refrigerator safely. We then went into the bathroom. Bathroom: In the bathroom, the patient was able to sit on a lower toilet. He used the countertop on the side to push himself up. He also transferred into the tub. The patient demonstrated being able to get in and out of his tub. There are no grab bars. The patient was able to sit on the shower chair. The patient's daughter was present during the session today and she was shown two different types of grab bars. One could probably be installed on the outside of the tub or he could have a handle that actually inserts onto the side of the tub that would be most appropriate for the patient. The patient then transferred into the living room area. Living room: The patient was able to get on and off of his couch independently. A: The patient did well within the home. Recommendations at this time are as follows: 1. It is recommended that they put a grab bar on the outside of the tub in order for the patient to hang onto to get in and out of the tub and one that sits on the tub. 2. It is recommended that the patient get a pulse oximeter so that the patient can check his oxygen. 3. It is recommended that the patient get a long handled shower hose. 4. It is recommended that the patient get a new rug with tube cutter operator on the bottom by the sink. 5. It is recommended that they remove a throw rug that goes to outside. 6. It is recommended that they get a [facility]. 7. It is recommended that the patient get a [employer]. The patient's daughter was present during the evaluation and is going to be looking into all of the adaptive equipment. The patient's is also in the hospital at this point in time. We did take a peek at her bathroom and will recommend equipment for her as well. P: Continue seeing patient BID during the week and one time per day over the weekend for transfers, ambulation, and range of motion/strengthening exercises. MOLLY
== END 2016-06-05 18:58 | disposition home or self-care (01) | DRG 192 ==
LOC: ER 10:45 → MED/SURG 14:06
PROVIDERS: ADMIT Internal Medicine; ATTEND Internal Medicine
DX: J44.9 Chronic obstructive pulmonary disease, unspecified (principal); R09.02 Hypoxemia; R04.2 Hemoptysis; R06.02 Shortness of breath; E03.9 Hypothyroidism, unspecified; R26.89 Other abnormalities of gait and mobility; R79.89 Other specified abnormal findings of blood chemistry; R12 Heartburn
CPT/HCPCS: 36415; 71010; 71020; 71250; 78582; 80053; 82553; 82803; 83605; 83880; 84484; 85025; 85379; 85610; 85730; 86850; 86900; 86901; 87040; 87070; 87077; 87186; 87205; 93005; 93010; 93970; 94150; 94640; 94761; 97110; 97161; 97166; 97530; 97535; 99284; J0696; J1650; J2270; J2920; J3490; J7030; J7050; J7620

== ENCOUNTER → 2016-06-10 | Outpatient (CLI) | payer OTHER | LOC: MMPC 09:00 | PROVIDERS: ATTEND Family Medicine | DX: J41.0 Simple chronic bronchitis (principal); M54.5 Low back pain | CPT/HCPCS: 99213; G0463 ==

== ENCOUNTER → 2016-06-18 | Outpatient (CLI) | payer OTHER ==
--- NOTE | 2016-06-18 15:28 | DI ---
XR HIP COMPLETE MIN 2VW U/L,06/18/2016 10:45 AM: Clinical History: Right hip pain Previous Exam: None at this facility. Findings: 3 views of the right hip are obtained, and demonstrate mild diffuse osteopenia. There is no fracture identified. There are brachytherapy seeds noted within the prostate. Peripheral vascular calcifications are also noted. There is also a vague calcification which overlies the midline of the sacrum. Degenerative changes of the lumbar spine are noted. There is a pseudoarticulation on the right due to transitional anatomy at the lumbosacral junction. Impression: Mild degenerative changes of the right hip otherwise unremarkable.
== END ==
LOC: MOB RAD 10:48
PROVIDERS: ATTEND Family Medicine
DX: M25.551 Pain in right hip (principal); M16.11 Unilateral primary osteoarthritis, right hip
CPT/HCPCS: 73502

== ENCOUNTER 2016-06-20 08:27 | Observation (INO) | payer OTHER ==
--- NOTE | 2016-06-20 08:45 | PDOC ---
Chest Pain HPI - General Chief Complaint: Chest Pain Stated Complaint: chest pain Date Seen by Provider: 06/20/16 Time Seen by Provider: 08:41 Source: Patient Exam Limitations: POSITIVE: No limitations Treatment Prior to Arrival: REPORTS: None Nurse's Notes Reviewed & Considered: Yes - History of Present Illness Initial Comments: Patient comes in today with chief complaint of chest pain. Patient awoke this morning with chest pain that was left substernal nonradiating. He describes pain as sharp. He has no chest pain at this time. During the initial period of chest pain he did have some mild associated shortness of breath. At present that has resolved as well. Patient does have complaints of dry mouth. Patient denies any headache, sore throat, no cough, at present he has no chest pain or shortness of breath. He denies any fever chills sweats, no nausea vomiting or diarrhea, no hematuria or dysuria, no rashes. Body Location Affected: REPORTS: Chest Timing: REPORTS: Abrupt Duration: 1-3 hours Severity: Moderate Context: REPORTS: Sleep Quality: REPORTS: "Pain", Sharpness Radiation: REPORTS: None Associated Symptoms: REPORTS: Shortness of Breath Modifying Factors: improves with: None Reported Similar Symptoms Previously: No Recently seen/treated/hospitalized: No Any Prior Injuries Related to Current Complaint?: No - Patient Home Medications Home Medications: Home Medications Diaper,Brief,Adult, Disposable [Depend] 1 each TOPICAL QID #160 each 11/14/15 Walker [Ultra-Light Rollator] 1 each MC ONCE #1 each 12/11/15 Hydrocodone/Acetaminophen [Hydrocodon-Acetaminophn 10-325] 1 tab PO Q4-6H #120 tab 06/10/16 Fluticasone/Vilanterol [Breo Ellipta 100-25 Mcg Inh] 1 puff INH DAILY #1 puff Gabapentin 600 mg PO BID #60 cap 06/18/16 Levothyroxine Sodium 25 mcg PO DAILY #30 tab 06/18/16 Montelukast Sodium 1 tab PO DAILY #30 tab 06/18/16 Oxybutynin Chloride 5 mg PO TID #90 tab 06/18/16 Sertraline HCl 1 tab PO DAILY #30 tab 06/18/16 Tamsulosin HCl 1 cap PO DAILY #30 cap 06/18/16 Tiotropium [place] [Spiriva] 1 puff INH DAILY #30 cap 06/18/16 Clopidogrel Bisulfate [Plavix] 1 tab PO DAILY #30 tab 06/24/16 Pantoprazole Sodium 1 tab PO DAILY #30 tab 06/24/16 - Patient Allergies Allergies/Adverse Reactions: Allergies Allergy/AdvReac Type Severity Reaction Status Date / Time codeine Allergy Severe RASH Verified 06/20/16 08:35 Penicillins Allergy RASH Verified 06/20/16 08:35 aspirin AdvReac Intermediate DYSPHORIA Verified 06/20/16 08:35 contrast dye Allergy Anaphylaxis Uncoded 06/20/16 08:35 Past Medical History - heen HEENT History: Glaucoma, Hard of Hearing, Dentures/Partials Additional HEENT History: Full top and bottom Cardiovascular History: Arrhythmia Additional Cardiovasular History: irregular Respiratory History: COPD, Shortness of Breath, Pneumonia, Home Oxygen Use Gastrointestinal History: GERD Genitourinary History: Recurrent UTI, Other (please comment) Additional Genitourinary History: prostrate cancer Endocrine History: Denies History Musculoskeletal History: Arthritis, Back Pain, Other (please comment) Prosthesis or Implant: No Additional Musculoskeletal History: pain left hip, patient stated he has bulging disks in his back Neurological History: TIA Blood Disorders: Denies History Psychiatric History: Denies History History of Sexually Transmitted Diseases: No Cancer History: Other (please comment) Cancer Treatment / Date(s) of Treatment: SEED IMPLANT History of MDRO: No History of Other Communicable Diseases: No Alcohol Use: Occasionally Substance Use Type: None Previous Surgical History: Yes Type / Date of Surgery: Ankle surgery 1966,CA treatment 1986 Anesthesia Reactions: No Malignant Hyperthermia: No Significant Family History: Diabetes, Hypertension ROS - Limitations ROS Limitations: No Limitations Constitution: REPORTS: Denies Symptoms Cardiovascular: REPORTS: Chest Pain Respiratory: REPORTS: Shortness Of Breath Neurological: REPORTS: Denies Neuro Symptoms Gastrointestinal: REPORTS: Denies GI Symptoms Endocrine: REPORTS: Denies Symptoms Musculoskeletal: REPORTS: Denies MS Symptoms Genitourinary: REPORTS: Denies Symptoms Eyes: REPORTS: Denies Symptoms ENT: REPORTS: Denies Symptoms Skin: REPORTS: Denies Skin Symptoms Lympathic: REPORTS: Denies Lympathic Symptoms Immunologic: POSITIVE: Denies Symptoms Psychiatric: POSITIVE: Denies Psych Symptoms Chest Pain PE - General Appearance General Appearance: REPORTS: Alert, Cooperative, No Acute Distress, No Evidence of Trauma - HEENT HEENT: POSITIVE: Head Inspection Nml, Eyes Inspection Nml, Ears Inspection Nml, Nose Inspection Nml, PERRL, EOMI, Dry Mucous Membranes - Neck Neck: REPORTS: Normal Inspection - Respiratory Respiratory: REPORTS: No Respiratory Distress, Breath Sounds Normal, Chest Non- Tender - Cardiovascular Cardiovascular: REPORTS: Regular Rate and Rhythm, Heart Sounds Normal, No Murmur , No Gallop, No Friction Rub, No JVD - Abdomen Abdomen: Soft: (All Quadrants), Normal Bowel Sounds: (All Quadrants), Denies Tenderness: (All Quadrants) - Skin Skin: REPORTS: Intact, Normal For Race, Warm, Dry, No Rash - Extremities Extremity: Non-Tender: (All Extremities), Normal ROM: (All Extremities), Normal Inspection: (All Extremities), Pelvis Stable: (All Extremities) - Neurological / Psychological Neurological: POSITIVE: Affect Apporpriate, Oriented X3, Motor Normal, Sensation Normal Chest Pain Progress - Results Reviewed by me Xrays/CTs/US Reviewed by me: No Discussed with Radiologist: No Lab Results Reviewed: No Lab Results:: Laboratory Results 06/20/16 06/20/16 Range/Units 08:40 08:51 WBC 6.49 (4.8-10.8) 10^3/uL RBC 4.43 L (4.70-6.10) 10^6/uL Hgb 16.0 (14.0-18.0) g/dL Hct 45.0 (42.0-52.0) % MCV 101.6 H (80-90) FL MCH 36.1 H (27-31) PG MCHC 35.6 (33-37) g/dL RDW Std Deviation 47.1 (39-50) fL RDW Coeff of Gabriella 12.7 (11.5-14.5) % Plt Count 200 (140-350) 10*3/uL MPV 9.8 (7.4-12.2) FL Immature Gran % (Auto) 0.3 (0-5) % Neut % (Auto) 61.6 (50-80) % Lymph % (Auto) 22.2 (10-50) % [place] % (Auto) 13.9 (5-15) % Eos % (Auto) 1.5 (0-8) % Baso % (Auto) 0.5 (0-1) % Immature Gran # (Auto) 0.02 10*3/UL Neut # (Auto) 4.00 10*3/UL Lymph # (Auto) 1.44 10*3/uL [place] # (Auto) 0.90 H (0.3-0.8) 10*3/UL Eos # (Auto) 0.10 10*3/UL Baso # (Auto) 0.03 10*3/UL WBC Morphology Comment Normal morphology (NORM) Plt Morphology Comment Normal morphology (NORM) RBC Morph Comment Normal morphology (NORM) D-Dimer 0.79 H (0.00-0.59) mg/L Sodium 131 L (135-145) meq/L Potassium 4.5 (3.8-5.2) meq/L Chloride 98 (98-112) meq/L Carbon Dioxide 23 (23-33) meq/L Anion Gap 10 (5-20) BUN 15 (7-22) mg/dL Creatinine 0.8 (0.70-1.50) mg/dL Estimated GFR (>60 ml/min/1.73m(2)) BUN/Creatinine Ratio 18.75 (6-20) Glucose 103 (78-110) mg/dL Calculated Osmolality 272.0 (267-292) mOsm/kg Calcium 8.9 (8.7-10.7) mg/dL Magnesium 2.0 (1.6-2.4) mg/dL Total Bilirubin 0.8 (0.3-1.2) mg/dL AST 20 L (21-57) IU/L ALT 35 (21-72) IU/L Alkaline Phosphatase 63 (38-126) IU/L Troponin I < 0.012 (< 0.040) ng/mL NT-Pro-B Natriuret Pep 314 (0-450) PG/ML Total Protein 6.8 (6.1-8.0) g/dL Albumin 4.1 (3.5-4.8) g/dL Globulin 2.7 (2.50-4.10) g/dL Albumin/Globulin Ratio 1.50 (1.3-2.0) mg/g TSH 1.56 (0.2700-4.2000) uIU/mL EKG Interpreted/Reviewed By Me:: Yes (occasional PVC) EKG Interpretation:: POSITIVE: Normal Sinus Rhythm - Patient's Progress MDM / ED Course: Patient was evaluated, an IV started, blood drawn and sent to the lab for studies, chest x-ray and EKG was obtained. At the end of my shift I was awaiting results for ordered labs and x-ray. I have turned over care to Dr. Brown , please see his dictation for findings, assessment, and plan. Quality Measure Initiative: CP/AMI: POSITIVE: EKG Patient Care Time - Estimated PCT Patient Care Time (In Minutes): 20 Vital Signs - VS Reviewed Vital Signs Reviewed: Yes Discharge Clinical Impression: Chest pain, Chronic obstructive lung disease, Dizziness Condition: Fair
[2016-06-20] MEDS ORDERED: Sodium Chloride 0.9% 1,000 ML PRIMARY IV ONE (08:46)
[2016-06-20 09:01] LABS: BASOPHILS # (AUTO) 0.03 10*3/UL; BASOPHILS % (AUTO) 0.5 % (0-1); EOSINOPHILS % (AUTO) 1.5 % (0-8); LYMPHOCYTES # (AUTO) 1.44 10*3/uL; MEAN CORPUSCULAR HEMOGLOBIN 36.1 PG (27-31); MEAN CORPUSCULAR HGB CONC 35.6 g/dL (33-37); MEAN CORPUSCULAR VOLUME 101.6 FL (80-90); MEAN PLATELET VOLUME 9.8 FL (7.4-12.2); MONOCYTES % (AUTO) 13.9 % (5-15); NEUTROPHILS % (AUTO) 61.6 % (50-80); RED BLOOD COUNT 4.43 10^6/uL (4.70-6.10)
[2016-06-20 09:04] LABS: PLATELET MORPHOLOGY COMMENT NORMAL MORPHOLOGY (NORM); RBC MORPHOLOGY COMMENT NORMAL MORPHOLOGY (NORM); WBC MORPHOLOGY COMMENT NORMAL MORPHOLOGY (NORM)
[2016-06-20 09:10] LABS: BUN/CREATININE RATIO 18.75 (6-20); CALCIUM 8.9 mg/dL (8.7-10.7); SERUM ALBUMIN 4.1 g/dL (3.5-4.8)
--- NOTE | 2016-06-20 10:27 | PDOC ---
Transfer of Care - Care Accepted Time Care Transferred: 09:00 Report from Transferring Physician Received: Yes (Dr. Petersen) MDM / ED Course: The patient is an 81-year-old male who presented to the emergency department this morning after having woke up with chest pain. The patient was initially evaluated per Dr. Petersen. He had ordered an EKG that did not show any evidence of ST segment or T-wave changes and a normal sinus rhythm. Lab work and chest x -ray were pending at the time of patient care transfer. The patient has a history of COPD and was recently hospitalized with COPD exacerbation. He also continues to smoke at home. He has a history of hypertension. He states that he had onset of "heart pain" when he woke up this morning. He states the pain was in the left side of his chest in the center. He describes the pain as being sharp. He had some associated shortness of breath as well as dizziness. He was given a ride to the emergency department by the care van. By the time he was evaluated by Dr. Petersen his pain had resolved. He does report continued dizziness as well as some pressure in his head. He reports he's been having this dizziness off and on for some time. He denies any fevers or chills, nausea or vomiting, abdominal pain, numbness or weakness in his extremities other than some chronic tingling in his fingers and it sounds like neuropathy type symptoms in his lower extremities. Home Medications: Home Medications Diaper,Brief,Adult, Disposable [Depend] 1 each TOPICAL QID #160 each 11/14/15 [place] [Ultra-Light Rollator] 1 each MC ONCE #1 each 12/11/15 Hydrocodone/Acetaminophen [Hydrocodon-Acetaminophn 10-325] 1 tab PO Q4-6H #120 tab 06/10/16 Omeprazole 1 cap PO DAILY #90 cap 06/13/16 Fluticasone/Vilanterol [Breo Ellipta 100-25 Mcg Inh] 1 puff INH DAILY #1 puff Gabapentin 600 mg PO BID #60 cap 06/18/16 Levothyroxine Sodium 25 mcg PO DAILY #30 tab 06/18/16 Meloxicam 15 mg PO DAILY #30 tab 06/18/16 Montelukast Sodium 1 tab PO DAILY #30 tab 06/18/16 Oxybutynin Chloride 5 mg PO TID #90 tab 06/18/16 Sertraline HCl 1 tab PO DAILY #30 tab 06/18/16 Tamsulosin HCl 1 cap PO DAILY #30 cap 06/18/16 Tiotropium [place] [Spiriva] 1 puff INH DAILY #30 cap 06/18/16 Allergies/Adverse Reactions: Allergies codeine Allergy (Severe, Verified 06/20/16 08:35) RASH Penicillins Allergy (Verified 06/20/16 08:35) RASH aspirin Adverse Reaction (Intermediate, Verified 06/20/16 08:35) DYSPHORIA contrast dye Allergy (Uncoded 06/20/16 08:35) Anaphylaxis Vital Signs Reviewed: Yes Nurse's Notes Reviewed & Considered: Yes - Pending Patient Care Items Pending Patient Care Items: POSITIVE: Labs, X-ray Results - Re-Evaluation of Patient Disposition of Patient: POSITIVE: Admitted Counseled: POSITIVE: Patient, RE: Lab Results, RE: Radiology Results, RE: DX - Results Reviewed Lab Results: Laboratory Results 06/20/16 06/20/16 Range/Units 08:40 08:51 WBC 6.49 (4.8-10.8) 10^3/uL RBC 4.43 L (4.70-6.10) 10^6/uL Hgb 16.0 (14.0-18.0) g/dL Hct 45.0 (42.0-52.0) % MCV 101.6 H (80-90) FL MCH 36.1 H (27-31) PG MCHC 35.6 (33-37) g/dL RDW Std Deviation 47.1 (39-50) fL RDW Coeff of Gabriella 12.7 (11.5-14.5) % Plt Count 200 (140-350) 10*3/uL MPV 9.8 (7.4-12.2) FL Immature Gran % (Auto) 0.3 (0-5) % Neut % (Auto) 61.6 (50-80) % Lymph % (Auto) 22.2 (10-50) % [place] % (Auto) 13.9 (5-15) % Eos % (Auto) 1.5 (0-8) % Baso % (Auto) 0.5 (0-1) % Immature Gran # (Auto) 0.02 10*3/UL Neut # (Auto) 4.00 10*3/UL Lymph # (Auto) 1.44 10*3/uL [place] # (Auto) 0.90 H (0.3-0.8) 10*3/UL Eos # (Auto) 0.10 10*3/UL Baso # (Auto) 0.03 10*3/UL WBC Morphology Comment Normal morphology (NORM) Plt Morphology Comment Normal morphology (NORM) RBC Morph Comment Normal morphology (NORM) D-Dimer 0.79 H (0.00-0.59) mg/L Sodium 131 L (135-145) meq/L Potassium 4.5 (3.8-5.2) meq/L Chloride 98 (98-112) meq/L Carbon Dioxide 23 (23-33) meq/L Anion Gap 10 (5-20) BUN 15 (7-22) mg/dL Creatinine 0.8 (0.70-1.50) mg/dL Estimated GFR (>60 ml/min/1.73m(2)) BUN/Creatinine Ratio 18.75 (6-20) Glucose 103 (78-110) mg/dL Calculated Osmolality 272.0 (267-292) mOsm/kg Calcium 8.9 (8.7-10.7) mg/dL Magnesium 2.0 (1.6-2.4) mg/dL Total Bilirubin 0.8 (0.3-1.2) mg/dL AST 20 L (21-57) IU/L ALT 35 (21-72) IU/L Alkaline Phosphatase 63 (38-126) IU/L Troponin I < 0.012 (< 0.040) ng/mL NT-Pro-B Natriuret Pep 314 (0-450) PG/ML Total Protein 6.8 (6.1-8.0) g/dL Albumin 4.1 (3.5-4.8) g/dL Globulin 2.7 (2.50-4.10) g/dL Albumin/Globulin Ratio 1.50 (1.3-2.0) mg/g TSH 1.56 (0.2700-4.2000) uIU/mL - Consult Recommendations:: The patient had no further complaints of chest pain here in the emergency department. His initial troponin is normal and his initial EKG did not show any evidence of acute ST segment or T-wave changes. The patient does have a mildly elevated d-dimer, this was more elevated on his recent admission 2 weeks ago and he had undergone a perfusion study at that time that was low risk for PE. The patient does have a significant allergy to contrast dye stating that he coded after administration of dye in the 60s. Because of this I did not feel comfortable administering dye for a PE CT study. The patient did have some ongoing dizziness here in the emergency department and a CT scan of his head was ordered. There was no evidence of acute intracranial findings per radiologist. The patient does have several risk factors for coronary artery disease and the patient was discussed with Dr. Jenkins for admission. He is agreed to admit the patient. The patient is in agreement with this plan. Patient Care Time - Estimated PCT Patient Care Time (In Minutes): 20 Vital Signs - Recent Vital Signs Vital Signs: Vital Signs (Last 8 hours) Temp Pulse Resp BP Pulse Ox 06/20/16 08:28 97.1 F 72 20 157/85 95 - VS Reviewed Vital Signs Reviewed: Yes Discharge Clinical Impression: Chest pain, Chronic obstructive lung disease, Dizziness Discharge Disposition: Admit to Observation Condition: Fair
[2016-06-20] MEDS ORDERED: NORMAL SALINE 10 ML SYRINGE FLUSH IVP PRN (10:39)
[2016-06-20] MEDS ORDERED: CALCIUM CARBONATE 500 MG (TUMS) CHEWABLE TABLET PO PRN (10:39)
[2016-06-20] MEDS ORDERED: LIDOCAINE W/ SODIUM BICARB 0.5 ML SYR SUBD PRN (10:39)
[2016-06-20] MEDS ORDERED: WALKER MC SCH (10:45)
--- NOTE | 2016-06-20 10:56 | DI ---
CT HEAD W/O CONTRAST,06/20/2016 9:31 AM: Clinical History: Headache and dizziness. Previous Exam: None at this facility. Findings: Multiple helically acquired CT images are obtained through the brain without contrast, and demonstrat e diffuse age-related volume loss. There is no mass, hemorrhage or midline shift. Surrounding soft tissue and osseous structures are unr emarkable. Impression: Mild diffuse age-related volume loss without acute intracranial pathology.
--- NOTE | 2016-06-20 11:01 | DI ---
XR CXR 1VW,06/20/2016 8:46 AM: Clinical History: Chest pain Previous Exam: Plain film performed June 02, 2016 Findings: A single frontal radiograph of the chest is obtained, and demonstrate clear lungs. The cardiomediasti num and bony thorax are unremarkable and stable from the prior exam. Impression: No significant change from prior.
[2016-06-20] MEDS: HYDROcodone-APAP 10 MG-325 MG TABLET PO SCH ×3 (12:41→21:14)
[2016-06-20] MEDS ORDERED: DIAPER BRIEF ADULT DISPOSABLE TOPICAL SCH (13:00)
[2016-06-20] MEDS ORDERED: Sodium Chloride 0.9% 1,000 ML ONE (14:02)
[2016-06-20] MEDS: OXYBUTYNIN 5 MG PO SCH ×2 (15:01→21:14)
--- NOTE | 2016-06-20 15:37 | PDOC ---
History and Physical - History of Present Illness History of Present Illness: There is a very nice 81-year-old gentleman with history of COPD comes in this morning complaining of chest pain the middle of his chest did not radiate to arm jaw or neck that did not last long sharp in nature now has resolved. His COPD is stable he was just discharged for his exacerbation and treated in the hospital for this. He has not been wearing his oxygen at home like the he was told to do also a Some smoking as well. He will be admitted for chest pain rule out Lexiscan stress test will be performed he has no other complaint at present time he agrees with this plan Past Medical History Medical History: 1. COPD, not on oxygen at home, used his concentrator .2. Tobacco abuse3. History of prostate cancer status post seed implants4. Hypothyroidism5. Osteoarthritis in knees and back6. GERD7. Peripheral neuropathy, unclear etiology, on neurontin Surgical History: 1. Right knee replacement2. Left knee surgery3. Foot surgery Pertinent Family History: Significant for heart disease in his mother. Past Social History: Smokes. Drinks a double shot of whiskey a night on average. for 60 years. 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 Plays the [employer] and a guitar. Has 3 children, described ashealthy. Tobacco Use: Current Some Day Smoker Substance Use Type: None Medication / Allergies Home Medications: Home Medications Medication Instructions Recorded Confirmed Type Diaper,Brief,Adult, Disposable 1 each TOPICAL QID #160 each 11/14/15 06/20/16 Clinic [Depend] [place] [Ultra-Light Rollator] 1 each MC ONCE #1 each 12/11/15 06/20/16 Clinic Hydrocodone/Acetaminophen 1 tab PO Q4-6H #120 tab 06/10/16 06/20/16 Clinic [Hydrocodon-Acetaminophn 10-325] Omeprazole 1 cap PO DAILY #90 cap 06/13/16 06/20/16 Clinic Fluticasone/Vilanterol [Breo 1 puff INH DAILY #1 puff 06/18/16 06/20/16 Clinic Ellipta 100-25 Mcg Inh] Gabapentin 600 mg PO BID #60 cap 06/18/16 06/20/16 Clinic Levothyroxine Sodium 25 mcg PO DAILY #30 tab 06/18/16 06/20/16 Clinic Meloxicam 15 mg PO DAILY #30 tab 06/18/16 06/20/16 Clinic Montelukast Sodium 1 tab PO DAILY #30 tab 06/18/16 06/20/16 Clinic Oxybutynin Chloride 5 mg PO TID #90 tab 06/18/16 06/20/16 Clinic Sertraline HCl 1 tab PO DAILY #30 tab 06/18/16 06/20/16 Clinic Tamsulosin HCl 1 cap PO DAILY #30 cap 06/18/16 06/20/16 Clinic Tiotropium [place] [Spiriva] 1 puff INH DAILY #30 cap 06/18/16 06/20/16 Clinic Allergies/Adverse Reactions: Allergies Allergy/AdvReac Type Severity Reaction Status Date / Time codeine Allergy Severe RASH Verified 06/20/16 08:35 Penicillins Allergy RASH Verified 06/20/16 08:35 aspirin AdvReac Intermediate DYSPHORIA Verified 06/20/16 08:35 contrast dye Allergy Anaphylaxis Uncoded 06/20/16 08:35 Review of Systems - Review of Systems All Systems: Reviewed & No Additional Complaints Except as Stated Exam - Vitals Vital Signs: Vital Signs Temperature 97.3 F Temperature Source Oral Pulse Rate [Apical] 76 Pulse Rate [Pulse Oximeter] 78 Pulse Rate 76 Respiratory Rate 20 Blood Pressure [Right Arm] 132/71 Pulse Ox 95 Oxygen Flow Rate 2 Oxygen Delivery Method Nasal Cannula Height 6 ft 1 in Weight 87.997 kg - General General Appearance: POSITIVE: No Acute Distress, Cooperative - Head Head Exam: POSITIVE: Normal Inspection - Eye Eye Exam: POSITIVE: Normal Appearance - Respiratory Respiratory Exam: POSITIVE: Clear to Auscultation - Bilaterally, Breathing Non Labored, Normal To Percussion - Cardiovascular Cardiovascular Exam: POSITIVE: RRR, No Clicks - GI/Abdominal GI/Abdominal Exam: POSITIVE: Non Tender, Non Distended, Soft - Extremities Extremities Exam: POSITIVE: Normal Inspection, No Clubbing Present, No Edema Present, No Cyanosis Present Results - Labs CBC and BMP: 06/20/16 08:40 06/20/16 08:51 Assessment and Plan - Patient Problems (1) Chest pain Current Visit: Yes Status: Acute - Assessment / Plan Additional Assessment/Plan Details: Patient's medical problems are stable his new medical condition is chest pain which is resolved negative troponin because of history of hypertension he will be admitted for rule out Lexiscan stress test was ordered continue usual home meds Photo / Body Diagrams - Uploaded Photos Uploaded Photos:
--- NOTE | 2016-06-20 16:34 | EKG ---
[address] [address] Measurements Intervals [place] Rate: 71 P: 66 OR: 151 QRS: -40 QRSD: 105 T: 31 QT: 397 QTc: 419 Interpretive Statements SINUS RHYTHM MARKED LEFT AXIS DEVIATION LOW QRS VOLTAGE IN EXTREMITY LEADS Compared to ECG 06/05/2016 07:02:36 Low QRS voltage now present Ventricular premature complex(es) no longer present Intraventricular conduction delay no longer present Electronically Signed On 06-20-16 16:55:05 MDT by James Vazquez [email or web address]
--- NOTE | 2016-06-20 21:03 | EKG ---
[address] [place] [address] [place] [address] Measurements Intervals [place] Rate: 65 P: [place]: 0 QRS: -54 QRSD: 103 T: 28 QT: 406 QTc: 418 Interpretive Statements SINUS RHYTHMWITH OCCASIONAL PAC LOW QRS VOLTAGE IN EXTREMITY LEADS LEFT ANTERIOR FASCICULAR BLOCK Compared to ECG 06/20/2016 08:30:33 Left anterior fascicular block now present Electronically Signed On 06-21-16 10:28:29 MDT by James Vazquez [id number]
[2016-06-20] MEDS: GABAPENTIN 300 MG CAPSULE PO SCH (21:14)
[2016-06-20] MEDS: Apixaban Tab 2.5 MG TABLET PO SCH ×2 (21:26→21:54)
[2016-06-20] MEDS ORDERED: HYDROmorphone 2 MG/1 ML IVP PRN (22:00)
[2016-06-21] MEDS: HYDROcodone-APAP 10 MG-325 MG TABLET PO SCH ×5 (00:21→16:45)
[2016-06-21] MEDS ORDERED: LEVOTHYROXINE 25 MCG TABLET PO SCH (05:30)
[2016-06-21 06:30] LABS: BUN/CREATININE RATIO 16.66 (6-20); CALCIUM 8.6 mg/dL (8.7-10.7); SERUM ALBUMIN 3.6 g/dL (3.5-4.8)
[2016-06-21] MEDS ORDERED: TIOTROPIUM BROMIDE 18 MCG CAPSULE INH SCH (07:00)
[2016-06-21] MEDS ORDERED: VILANTEROL INH SCH (07:00)
[2016-06-21] MEDS ORDERED: FLUTICASONE INH SCH (07:00)
[2016-06-21] MEDS: OXYBUTYNIN 5 MG PO SCH ×2 (08:54→14:40)
[2016-06-21] MEDS: GABAPENTIN 300 MG CAPSULE PO SCH (08:54)
[2016-06-21] MEDS: Apixaban Tab 2.5 MG TABLET PO SCH (08:56)
[2016-06-21] MEDS ORDERED: ENOXAPARIN SODIUM 30 MG/0.3 ML SYRINGE SUBCUT SCH (09:00)
[2016-06-21] MEDS ORDERED: OMEPRAZOLE 40 MG CAPSULE PO SCH (09:00)
[2016-06-21] MEDS ORDERED: TAMSULOSIN 0.4 MG CAPSULE PO SCH (09:00)
[2016-06-21] MEDS ORDERED: Montelukast Tab 10 MG TAB PO SCH (09:00)
[2016-06-21] MEDS ORDERED: Sertraline Tab 50 MG TAB PO SCH (09:00)
--- NOTE | 2016-06-21 14:39 | DCSUMMARY ---
Hospitalization Summary Hospital Course: Final Discharge Diagnosis: Current Visit Problems Problem Status Priority Diagnosed Code Chest pain Acute R07.9 Chronic obstructive lung disease Acute J44.9 Dizziness Acute R42 Unstable angina Diagnostic Data, Laboratory Data, and Procedures of Signifigance: Laboratory Results 06/20/16 06/20/16 06/20/16 Range/Units 08:40 08:51 16:52 WBC 6.49 (4.8-10.8) 10^3/uL RBC 4.43 L (4.70-6.10) 10^6/uL Hgb 16.0 (14.0-18.0) g/dL Hct 45.0 (42.0-52.0) % MCV 101.6 H (80-90) FL MCH 36.1 H (27-31) PG MCHC 35.6 (33-37) g/dL RDW Std Deviation 47.1 (39-50) fL RDW Coeff of Gabriella 12.7 (11.5-14.5) % Plt Count 200 (140-350) 10*3/uL MPV 9.8 (7.4-12.2) FL Immature Gran % (Auto) 0.3 (0-5) % Neut % (Auto) 61.6 (50-80) % Lymph % (Auto) 22.2 (10-50) % [place] % (Auto) 13.9 (5-15) % Eos % (Auto) 1.5 (0-8) % Baso % (Auto) 0.5 (0-1) % Immature Gran # (Auto) 0.02 10*3/UL Neut # (Auto) 4.00 10*3/UL Lymph # (Auto) 1.44 10*3/uL [place] # (Auto) 0.90 H (0.3-0.8) 10*3/UL Eos # (Auto) 0.10 10*3/UL Baso # (Auto) 0.03 10*3/UL WBC Morphology Comment Normal morphology (NORM) Plt Morphology Comment Normal morphology (NORM) RBC Morph Comment Normal morphology (NORM) D-Dimer 0.79 H (0.00-0.59) mg/L Sodium 131 L (135-145) meq/L Potassium 4.5 (3.8-5.2) meq/L Chloride 98 (98-112) meq/L Carbon Dioxide 23 (23-33) meq/L Anion Gap 10 (5-20) BUN 15 (7-22) mg/dL Creatinine 0.8 (0.70-1.50) mg/dL Estimated GFR (>60 ml/min/1.73m(2)) BUN/Creatinine Ratio 18.75 (6-20) Glucose 103 (78-110) mg/dL Calculated Osmolality 272.0 (267-292) mOsm/kg Calcium 8.9 (8.7-10.7) mg/dL Magnesium 2.0 (1.6-2.4) mg/dL Total Bilirubin 0.8 (0.3-1.2) mg/dL AST 20 L (21-57) IU/L ALT 35 (21-72) IU/L Alkaline Phosphatase 63 (38-126) IU/L Troponin I < 0.012 < 0.012 (< 0.040) ng/mL NT-Pro-B Natriuret Pep 314 (0-450) PG/ML Total Protein 6.8 (6.1-8.0) g/dL Albumin 4.1 (3.5-4.8) g/dL Globulin 2.7 (2.50-4.10) g/dL Albumin/Globulin Ratio 1.50 (1.3-2.0) mg/g TSH 1.56 (0.2700-4.2000) uIU/mL 06/20/16 06/21/16 Range/Units 20:54 05:20 WBC (4.8-10.8) 10^3/uL RBC (4.70-6.10) 10^6/uL Hgb (14.0-18.0) g/dL Hct (42.0-52.0) % MCV (80-90) FL MCH (27-31) PG MCHC (33-37) g/dL RDW Std Deviation (39-50) fL RDW Coeff of Gabriella (11.5-14.5) % Plt Count (140-350) 10*3/uL MPV (7.4-12.2) FL Immature Gran % (Auto) (0-5) % Neut % (Auto) (50-80) % Lymph % (Auto) (10-50) % [place] % (Auto) (5-15) % Eos % (Auto) (0-8) % Baso % (Auto) (0-1) % Immature Gran # (Auto) 10*3/UL Neut # (Auto) 10*3/UL Lymph # (Auto) 10*3/uL [place] # (Auto) (0.3-0.8) 10*3/UL Eos # (Auto) 10*3/UL Baso # (Auto) 10*3/UL WBC Morphology Comment (NORM) Plt Morphology Comment (NORM) RBC Morph Comment (NORM) D-Dimer 0.75 H (0.00-0.59) mg/L Sodium 134 L (135-145) meq/L Potassium 4.5 (3.8-5.2) meq/L Chloride 99 (98-112) meq/L Carbon Dioxide 27 (23-33) meq/L Anion Gap 8 (5-20) BUN 15 (7-22) mg/dL Creatinine 0.9 (0.70-1.50) mg/dL Estimated GFR (>60 ml/min/1.73m(2)) BUN/Creatinine Ratio 16.66 (6-20) Glucose 92 (78-110) mg/dL Calculated Osmolality 278.0 (267-292) mOsm/kg Calcium 8.6 L (8.7-10.7) mg/dL Magnesium (1.6-2.4) mg/dL Total Bilirubin 0.7 (0.3-1.2) mg/dL AST 17 L (21-57) IU/L ALT 32 (21-72) IU/L Alkaline Phosphatase 57 (38-126) IU/L Troponin I < 0.012 (< 0.040) ng/mL NT-Pro-B Natriuret Pep (0-450) PG/ML Total Protein 6.3 (6.1-8.0) g/dL Albumin 3.6 (3.5-4.8) g/dL Globulin 2.7 (2.50-4.10) g/dL Albumin/Globulin Ratio 1.30 (1.3-2.0) mg/g TSH (0.2700-4.2000) uIU/mL History and Physical pertinent to Admission: Course of Hospitalization: This very nice 81-year-old gentleman who was just admitted for COPD exacerbation and this is stable comes in because he had some chest pains early yesterday morning was admitted for rule out. 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 Ventura who read the report and recommended further studying in catheter I discussed this with the patient and he agreed to be transferred to [facility] for catheter as soon as possible. Discussed this with Dr. Ventura he can most likely a catheter will be happening tomorrow he also has a history of COPD should be on oxygen was prescribed oxygen but I don't think he is wearing it he also keeps on using tobacco he was also counseled extensively on quitting as well accepted by Dr. Ventura at [facility] Gen.: No acute distress, alert, nontoxic Heart: Regular rate and rhythm, no murmurs, clicks, gallops, or rubs Lungs: Clear to auscultation bilaterally, breathing is nonlabored Abdomen/GI: Normal tones on auscultation, soft, nontender, nondistended Musculoskeletal/extremities: No clubbing, cyanosis, or edema Vitals reviewed and are listed below Vital Signs (24 hrs) Temp Pulse Pulse Pulse Resp BP Pulse Ox 06/21/16 12:30 97.1 F 80 20 130/75 91 06/21/16 10:51 65 06/21/16 08:30 97.6 F 62 16 139/69 90 06/21/16 07:00 66 06/21/16 04:55 97.3 F 66 16 135/79 92 06/21/16 04:21 97 06/21/16 03:00 65 06/21/16 00:47 96.9 F 76 20 123/58 93 06/20/16 23:00 66 06/20/16 20:19 98.8 F 70 20 110/61 93 06/20/16 19:00 65 06/20/16 16:42 97.5 F 72 24 132/75 95 06/20/16 15:00 76 Assessment and Plan: 1. As per discharge assessments above 2. Disposition: [facility] 3. Condition on discharge, stable and improved. 4. Diet: regular diet 5. Activities: resume normal activities 6. Follow-Up: 1. PCP to [facility] as needed 2. 7. Medications at the Time of Discharge: Active Medications Generic Name Dose Route Start Last Admin Trade Name Freq PRN Reason Stop Dose Admin Acetaminophen/Hydrocodone Bitart 1 tab 06/20/16 10:45 06/21/16 12:46 Sandy 10/325 Tab PO 1 tab Q4H HALLEY Administration Apixaban 5 mg 06/20/16 09:00 06/21/16 08:56 Eliquis PO 5 mg BID HALLEY Administration Calcium Carbonate 1 - 2 tab 06/20/16 10:39 Tums PO QID PRN Heartburn Gabapentin 600 mg 06/20/16 21:00 06/21/16 08:54 Neurontin PO 600 mg BID HALLEY Administration Hydromorphone HCl 1 mg 06/20/16 22:00 Dilaudid Inj IVP Q4H PRN Pain Sodium Chloride 25 mls @ 200 mls/hr 06/20/16 10:39 Normal Saline 0.9% IV .Post Infusion PRN No Primary IV for Flush ONLY Levothyroxine Sodium 25 mcg 06/21/16 05:30 06/21/16 04:50 Synthroid PO 25 mcg DAILY@0530 HALLEY Administration Lidocaine HCl 0.5 ml 06/20/16 10:39 Lidocaine Buffered Inj SUBD ONCE PRN IV Starts Montelukast Sodium 10 mg 06/21/16 09:00 06/21/16 08:55 Singulair PO 10 mg DAILY HALLEY Administration Pom-Fluticasone/ 1 puff 06/21/16 07:00 06/21/16 06:54 Vilanterol [Breo INH 1 puff Ellipta 100-25 Mcg RTDAILY HALLEY Administration Inh] Omeprazole 40 mg 06/21/16 09:00 06/21/16 08:54 Prilosec PO 40 mg DAILY HALLEY Administration Oxybutynin Chloride 5 mg 06/20/16 15:00 06/21/16 08:54 Ditropan PO 5 mg TID HALLEY Administration Sertraline HCl 50 mg 06/21/16 09:00 06/21/16 08:55 Zoloft PO 50 mg DAILY HALLEY Administration Sodium Chloride 5 - 20 ml 06/20/16 10:39 Saline Flush IVP BID PRN Flush Tamsulosin HCl 0.4 mg 06/21/16 09:00 06/21/16 08:54 Flomax PO 0.4 mg DAILY HALLEY Administration Tiotropium [place] 18 mcg 06/21/16 07:00 06/21/16 06:52 Spiriva Inhalation Cap INH 18 mcg RTDAILY HALLEY Administration Home Medications Medication Instructions Recorded Confirmed Type Diaper,Brief,Adult, Disposable 1 each TOPICAL QID #160 each 11/14/15 06/20/16 Clinic [Depend] Walker [Ultra-Light Rollator] 1 each MC ONCE #1 each 12/11/15 06/20/16 Clinic Hydrocodone/Acetaminophen 1 tab PO Q4-6H #120 tab 06/10/16 06/20/16 Clinic [Hydrocodon-Acetaminophn 10-325] Omeprazole 1 cap PO DAILY #90 cap 06/13/16 06/20/16 Clinic Fluticasone/Vilanterol [Breo 1 puff INH DAILY #1 puff 06/18/16 06/20/16 Clinic Ellipta 100-25 Mcg INH] Gabapentin 600 mg PO BID #60 cap 06/18/16 06/20/16 Clinic Levothyroxine Sodium 25 mcg PO DAILY #30 tab 06/18/16 06/20/16 Clinic Meloxicam 15 mg PO DAILY #30 tab 06/18/16 06/20/16 Clinic Montelukast Sodium 1 tab PO DAILY #30 tab 06/18/16 06/20/16 Clinic Oxybutynin Chloride 5 mg PO TID #90 tab 06/18/16 06/20/16 Clinic Sertraline HCl 1 tab PO DAILY #30 tab 06/18/16 06/20/16 Clinic Tamsulosin HCl 1 cap PO DAILY #30 cap 06/18/16 06/20/16 Clinic Tiotropium [place] [Spiriva] 1 puff INH DAILY #30 cap 06/18/16 06/20/16 Clinic 8. Time, care, counseling and coordination of care for this discharge is greater than 30 minutes. Exam - Vitals Vital Signs: Vital Signs Temperature 97.1 F Temperature Source Temporal Artery Scan Pulse Rate [Apical] 62 Pulse Rate [Pulse Oximeter] 80 Pulse Rate 65 Respiratory Rate 20 Blood Pressure [Right Arm] 130/75 Pulse Ox 91 Oxygen Flow Rate 3 Oxygen Delivery Method Room Air Height 6 ft 1 in Weight 87.997 kg Patient Problems - Patient Problem List (1) Chest pain Current Visit: Yes Status: Acute
[2016-06-21 17:38] VITALS: RESP 24; TEMP 96.1
== END 2016-06-21 18:03 | disposition short-term general hospital (02) ==
LOC: ER 08:27 → MED/SURG 10:38
PROVIDERS: ADMIT Internal Medicine; ATTEND Internal Medicine
DX: R07.9 Chest pain, unspecified (principal); J44.9 Chronic obstructive pulmonary disease, unspecified; R42 Dizziness and giddiness
CPT/HCPCS: 70450; 71010; 78452; 80053 ×2; 83735; 83880; 84443; 84484; 85025; 85379 ×2; 93005; 93010; 94640; 94761; 99284 ×2; A9500; J2785; J7030

== ENCOUNTER → 2016-06-30 | Outpatient (CLI) | payer OTHER ==
[2016-06-30 09:31] LABS: HEMATOCRIT 42.8 % (42.0-52.0); HEMOGLOBIN 15.1 g/dL (14.0-18.0); MEAN CORPUSCULAR HGB CONC 35.3 g/dL (33-37); MEAN CORPUSCULAR VOLUME 102.1 FL (80-90); MEAN PLATELET VOLUME 9.5 FL (7.4-12.2); RED BLOOD COUNT 4.19 10^6/uL (4.70-6.10)
[2016-06-30 09:57] LABS: CALCIUM 9.1 mg/dL (8.7-10.7)
== END ==
LOC: LAB 09:15
PROVIDERS: ATTEND Nurse Practitioner Family
DX: I25.10 Atherosclerotic heart disease of native coronary artery without angina pectoris (principal)
CPT/HCPCS: 36415; 80048; 85027

== ENCOUNTER 2016-08-01 11:50 | Emergency (ER) | payer OTHER ==
[2016-08-01 12:10] VITALS: RESP 20; TEMP 96.8
[2016-08-01] MEDS ORDERED: Sodium Chloride 0.9% 1,000 ML PRIMARY IV ONE (12:14)
[2016-08-01] MEDS ORDERED: NORMAL SALINE 10 ML SYRINGE FLUSH IVP PRN (12:14)
--- NOTE | 2016-08-01 12:19 | PDOC ---
General Adult HPI - General Chief Complaint: General Medical Stated Complaint: DIZZY Date Seen by Provider: 08/01/16 Time Seen by Provider: 12:10 Source: POSITIVE: Patient, Other (Daughter) Exam Limitations: POSITIVE: No limitations Nurse's Notes Reviewed & Considered: Yes - History of Present Illness Initial Comment: Vitaliy is a 81-year-old male with a history of heart disease who presents to the emergency department for evaluation of dizziness. He reports he's feeling dizzy today. He describes this as almost a near syncope. There is no vertigo. It was worse when standing. It was worse while doing his physical therapy. Of note per report he was hypoxic as well. Patient does not usually wear oxygen. He does smoke cigarettes and has for the last 70 years. Patient does report he has a mild chronic cough. It is occasionally productive and he spits out sputum. Patient denies any change in this cough. No headache. No chest pain. Patient denies any shortness of breath. No nausea or vomiting. On back pain and he is being evaluated by his primary care provider for possible surgery. He gets radicular symptoms into the right leg. This is largely unchanged. For this reason he was at physical therapy. Have you received a tetanus shot in the past 10 years?: Unknown - Patient Home Medications Home Medications: Home Medications Diaper,Brief,Adult, Disposable [Depend] 1 each TOPICAL QID #160 each 11/14/15 Walker [Ultra-Light Rollator] 1 each MC ONCE #1 each 12/11/15 Hydrocodone/Acetaminophen [Hydrocodon-Acetaminophn 10-325] 1 tab PO Q4-6H #120 tab 06/10/16 Fluticasone/Vilanterol [Breo Ellipta 100-25 Mcg Inh] 1 puff INH DAILY #1 puff Gabapentin 600 mg PO BID #60 cap 06/18/16 Levothyroxine Sodium 25 mcg PO DAILY #30 tab 06/18/16 Montelukast Sodium 1 tab PO DAILY #30 tab 06/18/16 Oxybutynin Chloride 5 mg PO TID #90 tab 06/18/16 Sertraline HCl 1 tab PO DAILY #30 tab 06/18/16 Tamsulosin HCl 1 cap PO DAILY #30 cap 06/18/16 Tiotropium [place] [Spiriva] 1 puff INH DAILY #30 cap 06/18/16 Clopidogrel Bisulfate [Plavix] 1 tab PO DAILY #30 tab 06/24/16 Pantoprazole Sodium 1 tab PO DAILY #30 tab 06/24/16 Hydrocodone/Acetaminophen [Hydrocodon-Acetaminophn 10-325] 1 tab PO Q4-6H #120 tab 07/08/16 - Patient Allergies Allergies/Adverse Reactions: Allergies Allergy/AdvReac Type Severity Reaction Status Date / Time codeine Allergy Severe RASH Verified 06/20/16 08:35 Penicillins Allergy RASH Verified 06/20/16 08:35 aspirin AdvReac Intermediate DYSPHORIA Verified 06/20/16 08:35 contrast dye Allergy Anaphylaxis Uncoded 06/20/16 08:35 Past Medical History - heen HEENT History: Glaucoma, Hard of Hearing, Dentures/Partials Additional HEENT History: Full top and bottom Cardiovascular History: Arrhythmia Additional Cardiovasular History: irregular Respiratory History: COPD, Shortness of Breath, Pneumonia, Home Oxygen Use Gastrointestinal History: GERD Genitourinary History: Recurrent UTI, Other (please comment) Additional Genitourinary History: prostrate cancer Endocrine History: Denies History Musculoskeletal History: Arthritis, Back Pain, Other (please comment) Prosthesis or Implant: No Additional Musculoskeletal History: pain left hip, patient stated he has bulging disks in his back Neurological History: TIA Blood Disorders: Denies History Psychiatric History: Denies History History of Sexually Transmitted Diseases: No Cancer History: Other (please comment) Cancer Treatment / Date(s) of Treatment: SEED IMPLANT In Past Year Been Physically Harmed or Verbally Threatened: No History of MDRO: No History of Other Communicable Diseases: No Tobacco Use: Current Every Day Smoker Alcohol Use: Occasionally Substance Use Type: None Previous Surgical History: Yes Type / Date of Surgery: Ankle surgery 1966,CA treatment 1986 Anesthesia Reactions: No Malignant Hyperthermia: No Significant Family History: Diabetes, Hypertension ROS - Limitations ROS Limitations: No Limitations Constitution: REPORTS: Weakness. DENIES: Chills, Fever Cardiovascular: DENIES: Chest Pain Respiratory: REPORTS: Cough Productive Neurological: REPORTS: Dizziness, Weakness. DENIES: Headache Gastrointestinal: DENIES: Abdominal Pain, Nausea, Vomitting Endocrine: REPORTS: Denies Symptoms Musculoskeletal: REPORTS: Other (Chronic back pain) Genitourinary: REPORTS: Dysuria Eyes: REPORTS: Denies Symptoms ENT: REPORTS: Denies Symptoms Skin: REPORTS: Denies Skin Symptoms Lympathic: REPORTS: Denies Lympathic Symptoms Immunologic: POSITIVE: Denies Symptoms General Adult Exam - General Appearance General Appearance: POSITIVE: Alert, Cooperative, No Acute Distress, No Evidence of Trauma - HEENT HEENT: POSITIVE: Head Inspection Nml, Eyes Inspection Nml, PERRL, EOMI, Other ( No nystagmus) - Pupils Pupil Size: 3 mm: Bilateral - Neck Neck: POSITIVE: Normal Inspection. NEGATIVE: Lymphadenopathy - Respiratory Respiratory: POSITIVE: No Respiratory Distress, Other (Course breath sounds in the upper lobes bilaterally. Right worse than left. Lower lobes are clear.) - Cardiovascular Cardiovascular: POSITIVE: Regular Rate & Rhythm, No Murmur, No Gallop - Abdomen Abdomen: Soft: (All Quadrants), Normal Bowel Sounds: (All Quadrants), Denies Tenderness: (All Quadrants), No Splenomegaly: (All Quadrants), No Hepatomegaly: (All Quadrants), No Guarding: (All Quadrants), No Rebound: (All Quadrants) - Back Back: POSITIVE: Normal Inspection - Skin Skin: POSITIVE: Normal Color, Warm, Dry - Extremities Extremity: Non-Tender: (All Extremities), Normal ROM: (All Extremities), Normal Inspection: (All Extremities) - Neurological / Psychological Neurological: POSITIVE: Affect Apporpriate, Oriented X3, Motor Normal, Sensation Normal, Other (Patient has generalized weakness. It was difficult for him to stand. No obvious ataxia. Finger to nose testing is normal.) General Adult Progress - Results Reviewed by me Xrays/CTs/US Reviewed by me: Yes Lab Results Reviewed: Yes Lab Results:: Laboratory Results 08/01/16 08/01/16 Range/Units 12:27 13:06 WBC 10.10 (4.8-10.8) 10^3/uL RBC 4.16 L (4.70-6.10) 10^6/uL Hgb 15.0 (14.0-18.0) g/dL Hct 42.6 (42.0-52.0) % MCV 102.4 H (80-90) FL MCH 36.1 H (27-31) PG MCHC 35.2 (33-37) g/dL RDW Std Deviation 51.3 H (39-50) fL RDW Coeff of Gabriella 13.9 (11.5-14.5) % Plt Count 232 (140-350) 10*3/uL MPV 9.7 (7.4-12.2) FL Immature Gran % (Auto) 0.3 (0-5) % Neut % (Auto) 70.0 (50-80) % Lymph % (Auto) 15.8 (10-50) % [place] % (Auto) 13.0 (5-15) % Eos % (Auto) 0.7 (0-8) % Baso % (Auto) 0.2 (0-1) % Immature Gran # (Auto) 0.03 10*3/UL Neut # (Auto) 7.07 10*3/UL Lymph # (Auto) 1.60 10*3/uL [place] # (Auto) 1.31 H (0.3-0.8) 10*3/UL Eos # (Auto) 0.07 10*3/UL Baso # (Auto) 0.02 10*3/UL WBC Morphology Comment Normal morphology (NORM) Plt Morphology Comment Normal morphology (NORM) RBC Morph Comment Normal morphology (NORM) Sodium 131 L (135-145) meq/L Potassium 4.3 (3.8-5.2) meq/L Chloride 99 (98-112) meq/L Carbon Dioxide 23 (23-33) meq/L Anion Gap 9 (5-20) BUN 18 (7-22) mg/dL Creatinine 0.8 (0.70-1.50) mg/dL Estimated GFR (>60 ml/min/1.73m(2)) BUN/Creatinine Ratio 22.50 H (6-20) Glucose 92 (78-110) mg/dL Calculated Osmolality 273.0 (267-292) mOsm/kg Calcium 9.1 (8.7-10.7) mg/dL Total Bilirubin 0.4 (0.3-1.2) mg/dL AST 20 L (21-57) IU/L ALT 30 (21-72) IU/L Alkaline Phosphatase 77 (38-126) IU/L Troponin I < 0.012 (< 0.040) ng/mL Total Protein 7.1 (6.1-8.0) g/dL Albumin 4.3 (3.5-4.8) g/dL Globulin 2.8 (2.50-4.10) g/dL Albumin/Globulin Ratio 1.50 (1.3-2.0) mg/g Ur Collection Type Clean catch urine Urine Color Yellow Urine Clarity Slightly cloudy (CLEAR) Urine pH 6.0 (5.0-8.5) Ur Specific [place] 1.010 (1.005-1.030) Urine Protein Negative (NEG) mg/dl Urine Glucose (UA) Negative (NEG) mg/dL Urine Ketones Negative (NEG) Urine Occult Blood Trace-intact (NEG) Urine Nitrate Negative (NEG) Urine Bilirubin Negative (NEG) Urine Urobilinogen 0.2 (0.2) mg/dL Ur Leukocyte Esterase Moderate (NEG) Urine RBC None (NONE) /hpf Urine WBC 15-24 (NONE) Ur Squamous Epith Cells None (NONE) Ur Renal Epithelial Cell None (NONE) Urine Crystals None Urine Bacteria None (NONE) Urine Casts None Urine Mucus None (NONE) Urine Trichomonas None (NONE) Urine Yeast None (NONE) EKG Interpreted/Reviewed By Me:: Yes (sinus rhythm with supraventricular contractions) - Patient's Progress MDM / ED Course: Vitaliy is a 81-year-old male who presents to the emergency department dizziness. His vital signs are notable for hypoxia and examination him strict overall well-appearing male in no acute distress. Differential diagnosis includes but is not limited to arrhythmia, electrolyte abnormality, infection, urinary tract infection, pneumonia, ACS. EKG and troponins are unchanged from prior. And he does not have typical symptoms for acute coronary syndrome. Patient's chest x-ray without evidence of pneumonia or pneumothorax and is unchanged from prior. Patient has no significant risk factors for pulmonary embolism at this time, and without chest pain or shortness of breath it is unlikely. CBC is reassuring. Chemistry panel is unremarkable. Patient's urine did have white blood cells which is possible infection in the setting of dysuria. I will start patient on Keflex and arranged home oxygen for patient. I reviewed his prior records and it sounds like his pulse to be on home oxygen. This is likely secondary to his underlying COPD and continuing to smoke. Patient was noted to be mildly orthostatic. It did improve after administration of normal saline. Antibiotics Given: Yes Patient Care Time - Estimated PCT Patient Care Time (In Minutes): 40 Vital Signs - Recent Vital Signs Vital Signs: Vital Signs (Last 8 hours) Temp Pulse Pulse Pulse Pulse Resp BP 08/01/16 12:10 60 60 73 103/73 08/01/16 12:02 96.8 F 60 20 BP BP BP Pulse Ox 08/01/16 12:10 123/71 110/66 08/01/16 12:02 123/71 93 - VS Reviewed Vital Signs Reviewed: Yes Discharge Clinical Impression: Dehydration, Dizziness, Hypoxia Urinary tract infection Qualifiers: Urinary tract infection type: acute cystitis Hematuria presence: without hematuria Qualifier Code: (N30.00) Acute cystitis without hematuria Discharge Disposition: Discharged to Home Condition: Fair Prescriptions / Orders: Cephalexin [Keflex] 500 mg PO Q12H 7 Days Patient Instructions Given at Discharge: Dehydration (ED), Urinary Tract Infection in Men (ED) Additional Instructions: Thank you for coming to the emergency department. Your evaluation shows a possible urinary tract infection. Please take your antibiotics as prescribed. You were also noted to have low oxygen levels. Please wear your oxygen as prescribed. Follow-up with your primary care provider for recheck. Please return to the emergency department for any worsening symptoms.
--- NOTE | 2016-08-01 12:26 | EKG ---
[address] [place] [address] Measurements Intervals [place] Rate: 65 P: 73 DC: 158 QRS: -21 QRSD: 106 T: 36 QT: 420 QTc: 431 Interpretive Statements SINUS RHYTHM WITH FREQUENT SUPRAVENTRICULAR PREMATURE COMPLEXES LOW QRS VOLTAGE IN EXTREMITY LEADS CANNOT RULE OUT POSSIBLE INFERIOR MYOCARDIAL INFARCTION AGE UNDETERMINED Compared to ECG 06/20/2016 21:02:25 Myocardial infarct finding now present Left anterior fascicular block no longer present Electronically Signed On 08-03-16 17:56:27 MDT by James Vazquez [email or web address]
[2016-08-01 12:33] LABS: BASOPHILS # (AUTO) 0.02 10*3/UL; BASOPHILS % (AUTO) 0.2 % (0-1); EOSINOPHILS # (AUTO) 0.07 10*3/UL; EOSINOPHILS % (AUTO) 0.7 % (0-8); HEMATOCRIT 42.6 % (42.0-52.0); MEAN CORPUSCULAR HEMOGLOBIN 36.1 PG (27-31); MEAN CORPUSCULAR HGB CONC 35.2 g/dL (33-37); MEAN CORPUSCULAR VOLUME 102.4 FL (80-90); MEAN PLATELET VOLUME 9.7 FL (7.4-12.2); MONOCYTES # (AUTO) 1.31 10*3/UL (0.3-0.8); NEUTROPHILS # (AUTO) 7.07 10*3/UL; RED BLOOD COUNT 4.16 10^6/uL (4.70-6.10)
[2016-08-01 12:36] LABS: PLATELET MORPHOLOGY COMMENT NORMAL MORPHOLOGY (NORM); RBC MORPHOLOGY COMMENT NORMAL MORPHOLOGY (NORM); WBC MORPHOLOGY COMMENT NORMAL MORPHOLOGY (NORM)
[2016-08-01 12:42] LABS: BUN/CREATININE RATIO 22.5 (6-20); CALCIUM 9.1 mg/dL (8.7-10.7); SERUM ALBUMIN 4.3 g/dL (3.5-4.8)
--- NOTE | 2016-08-01 12:52 | DI ---
AP CHEST X-RAY, 08/01/2016 12:14 PM : Clinical History: Shortness of breath Previous Exam: 06/20/16 There is no acute soft tissue or bony abnormality. Heart size is normal. Lungs are clear. Mediastinal structures are normal. There are no pulmonary nodules. Reading: Normal chest x-ray.
[2016-08-01 13:15] LABS: BILIRUBIN,URINE NEGATIVE (NEG); CLARITY,URINE Slightly Cloudy (CLEAR); COLOR,URINE YELLOW; GLUCOSE, URINE (UA) NEGATIVE (NEG); NITRATE,URINE NEGATIVE (NEG); OCCULT BLOOD,URINE Trace-intact (NEG); PROTEIN,URINE NEGATIVE (NEG); UROBILINOGEN,URINE 0.2 mg/dL (0.2)
[2016-08-01 13:18] LABS: URINE SAMPLE TYPE CLEAN CATCH URINE
[2016-08-01] MEDS ORDERED: CEPHALEXIN 500 MG CAPSULE PO ONE (13:25)
== END 2016-08-01 14:05 | disposition home or self-care (01) ==
LOC: ER 11:50
DX: N30.00 Acute cystitis without hematuria (principal); R09.02 Hypoxemia; E86.0 Dehydration; R53.1 Weakness; R06.02 Shortness of breath; R42 Dizziness and giddiness; Z85.46 Personal history of malignant neoplasm of prostate; Z72.0 Tobacco use
CPT/HCPCS: 71010; 80053; 81001; 84484; 85025; 87077; 87088; 87186; 93005; 93010; 96360; 99283; J7030

== ENCOUNTER → 2016-08-05 | Outpatient (CLI) | payer OTHER | LOC: MOB LAB 13:49 | PROVIDERS: ATTEND Family Medicine | DX: N30.00 Acute cystitis without hematuria (principal); R82.99 Other abnormal findings in urine | CPT/HCPCS: 87088 ==

== ENCOUNTER 2016-09-08 09:56 | Emergency (ER) | payer OTHER ==
[2016-09-08] MEDS ORDERED: LORazepam 2 MG/1 ML VIAL IVP ONE (10:15)
[2016-09-08] MEDS ORDERED: Sodium Chloride 0.9% 1,000 ML PRIMARY IV ONE (10:15)
[2016-09-08] MEDS ORDERED: KETOROLAC 15 MG/1 ML VIAL IVP ONE (10:15)
--- NOTE | 2016-09-08 10:23 | PDOC ---
Syncope/Near-Syncope HPI - General Chief Complaint: Syncope / Near-Syncope Stated Complaint: HEAD AND NECK PAIN WITH SYNCOPAL EPISODES Date Seen by Provider: 09/08/16 Time Seen by Provider: 10:18 Source: POSITIVE: Patient, EMS Exam Limitations: POSITIVE: No limitations Nurse's Notes Reviewed & Considered: Yes EMS Report Reviewed & Considered: Verbal - History of Present Illness Initial Comments: This is a pleasant 81-year-old male complaining of head and neck pain with syncopal episodes. He is having left-sided shoulder and neck pain that radiates into his head. On occasion while sitting down he's had these episodes that resulted in loss of consciousness. The loss of consciousness was transient and he is uncertain of exactly how long. When he has these episodes of neck pain he does develop a headache. He states he has a dry mouth and is thirsty. Denies any chest pain but does have shortness of breath. His shortness of breath is chronic from 76 years of smoking. He denies any fever chills does have occasional sweats. Denies any nausea vomiting or diarrhea, no hematuria or dysuria, no rashes. Body Location Affected: REPORTS: Head, Neck Timing: REPORTS: Abrupt, Intermittent, Getting Worse Duration: Unknown Severity: Severe Quality: REPORTS: "Pain", Stabbing Witnessed? (By Whom:): No Context: REPORTS: Sitting, Other (please comment) (Deep respirations make the pain worse, movement of his head makes the pain worse.) Character of Event(s): REPORTS: Lost Consciousness Associated Symptoms: REPORTS: Shortness of Breath, Shoulder Pain, Headache Recently seen/treated/hospitalized: No Any Prior Injuries Related to Current Complaint?: No - Patient Home Medications Home Medications: Home Medications Diaper,Brief,Adult, Disposable [Depend] 1 each TOPICAL QID #160 each 11/14/15 Walker [Ultra-Light Rollator] 1 each MC ONCE #1 each 12/11/15 Gabapentin 600 mg PO BID #60 cap 06/18/16 Levothyroxine Sodium 25 mcg PO DAILY #30 tab 06/18/16 Montelukast Sodium 1 tab PO DAILY #30 tab 06/18/16 Oxybutynin Chloride 5 mg PO TID #90 tab 06/18/16 Sertraline HCl 1 tab PO DAILY #30 tab 06/18/16 Tamsulosin HCl 1 cap PO DAILY #30 cap 06/18/16 Tiotropium [place] [Spiriva] 1 puff INH DAILY #30 cap 06/18/16 Clopidogrel Bisulfate [Plavix] 1 tab PO DAILY #30 tab 06/24/16 Cephalexin [Keflex] 500 mg PO Q12H 7 Days 08/01/16 Metoprolol Tartrate 25 mg PO BID 08/01/16 Hydrocodone/Acetaminophen [Hydrocodon-Acetaminophn 10-325] 1 tab PO Q4-6H #120 tab 08/05/16 - Patient Allergies Allergies/Adverse Reactions: Allergies Allergy/AdvReac Type Severity Reaction Status Date / Time codeine Allergy Severe RASH Verified 09/08/16 10:44 Penicillins Allergy RASH Verified 09/08/16 10:44 aspirin AdvReac Intermediate DYSPHORIA Verified 09/08/16 10:44 contrast dye Allergy Anaphylaxis Uncoded 09/08/16 10:44 Past Medical History - heen HEENT History: Glaucoma, Hard of Hearing, Dentures/Partials Additional HEENT History: Full top and bottom Cardiovascular History: Arrhythmia Additional Cardiovasular History: irregular Respiratory History: COPD, Shortness of Breath, Pneumonia, Home Oxygen Use Gastrointestinal History: GERD Genitourinary History: Recurrent UTI, Other (please comment) Additional Genitourinary History: prostrate cancer Endocrine History: Denies History Musculoskeletal History: Arthritis, Back Pain, Other (please comment) Prosthesis or Implant: No Additional Musculoskeletal History: pain left hip, patient stated he has bulging disks in his back Neurological History: TIA Blood Disorders: Denies History Psychiatric History: Denies History History of Sexually Transmitted Diseases: No Cancer History: Other (please comment) Cancer Treatment / Date(s) of Treatment: SEED IMPLANT History of MDRO: No History of Other Communicable Diseases: No Alcohol Use: Occasionally Substance Use Type: None Previous Surgical History: Yes Type / Date of Surgery: Ankle surgery 1966,CA treatment 1986 Anesthesia Reactions: No Malignant Hyperthermia: No Significant Family History: Diabetes, Hypertension ROS - Limitations ROS Limitations: No Limitations Constitution: REPORTS: Diaphoresis Cardiovascular: REPORTS: Denies Cardiac Symptoms Respiratory: REPORTS: Hurts To Breathe, Shortness Of Breath Neurological: REPORTS: Headache, Fainting Gastrointestinal: REPORTS: Denies GI Symptoms Endocrine: REPORTS: Denies Symptoms Musculoskeletal: REPORTS: Neck Pain Genitourinary: REPORTS: Denies Symptoms Eyes: REPORTS: Denies Symptoms ENT: REPORTS: Denies Symptoms Skin: REPORTS: Denies Skin Symptoms Lympathic: REPORTS: Denies Lympathic Symptoms Immunologic: POSITIVE: Denies Symptoms Psychiatric: POSITIVE: Denies Psych Symptoms Syncope / Near-Syncope Exam - General Appearance General Appearance: POSITIVE: Alert, Cooperative, No Acute Distress, No Evidence of Trauma - HEENT HEENT: POSITIVE: Head Inspection Nml, Eyes Inspection Nml, Ears Inspection Nml, Nose Inspection Nml, Oral/Dental Inspect. Nml, Pharynx Inspect. Nml, PERRL, EOMI , Dry Mucous Membranes - Pupil Size Pupil Size: 3 mm: Bilateral - Neck / Back Neck/Back: POSITIVE: Stiff Neck, Neck Tenderness (Left lateral neck with extension into the left upper shoulder.) - Respiratory Respiratory: POSITIVE: Wheezes, Other (Diminished breath sounds in the right base) - Cardiovascular Cardiovascular: POSITIVE: Regular Rate and Rhythm, Heart Sounds Normal, Equal Pulses, Strong Pulses Peripheral Pulses: Brachial (R): 3+ - Abdomen Abdomen: Soft: (All Quadrants), Normal Bowel Sounds: (All Quadrants), Denies Tenderness: (All Quadrants), No Splenomegaly: (All Quadrants), No Hepatomegaly: (All Quadrants), No Guarding: (All Quadrants), No Rebound: (All Quadrants), No Palpable Pulse: (All Quadrants), No Palpabale Mass: (All Quadrants), No Distention: (All Quadrants), No Rigidity: (All Quadrants) - Skin Skin: POSITIVE: Intact, Normal For Race, Warm, Dry, No Rash - Extremities Extremity: Non-Tender: (All Extremities), Normal ROM: (All Extremities), Normal Inspection: (All Extremities), Pelvis Stable: (All Extremities) - Neuro / Psych Higher Functions: POSITIVE: Oriented to Person, Oriented to Place, Oriented to Time, Normal Speech, Normal Cognition, Appropriate Mood, Appropriate Affect Cranial Nerves: POSITIVE: Normal As Tested, No Evidence of Acute CVA Cerebellar: POSITIVE: Normal As Tested Sensorimotor: POSITIVE: No Motor Deficits, No Sensory Deficits, Reflexes Normal , Symmetrical Reflexes: Patellar (R): 3+, Patellar (L): 3+, Radial (R): 3+, Radial (L): 3+ Syncope/Near-Syncope Progress - Results Reviewed by me Xrays/CTs/US Reviewed by me: Yes Discussed with Radiologist: Yes Lab Results Reviewed: Yes Lab Results:: Laboratory Results 09/08/16 Range/Units 10:15 WBC 8.34 (4.8-10.8) 10^3/uL RBC 4.27 L (4.70-6.10) 10^6/uL Hgb 15.3 (14.0-18.0) g/dL Hct 42.9 (42.0-52.0) % MCV 100.5 H (80-90) FL MCH 35.8 H (27-31) PG MCHC 35.7 (33-37) g/dL RDW Std Deviation 45.5 (39-50) fL RDW Coeff of Gabriella 12.4 (11.5-14.5) % Plt Count 237 (140-350) 10*3/uL MPV 10.2 (7.4-12.2) FL Immature Gran % (Auto) 0.1 (0-5) % Neut % (Auto) 69.7 (50-80) % Lymph % (Auto) 16.5 (10-50) % Williams % (Auto) 11.9 (5-15) % Eos % (Auto) 1.6 (0-8) % Baso % (Auto) 0.2 (0-1) % Immature Gran # (Auto) 0.01 10*3/UL Neut # (Auto) 5.81 10*3/UL Lymph # (Auto) 1.38 10*3/uL Williams # (Auto) 0.99 H (0.3-0.8) 10*3/UL Eos # (Auto) 0.13 10*3/UL Baso # (Auto) 0.02 10*3/UL WBC Morphology Comment Normal morphology (NORM) Plt Morphology Comment Normal morphology (NORM) RBC Morph Comment Normal morphology (NORM) Sodium 127 L (135-145) meq/L Potassium 4.4 (3.8-5.2) meq/L Chloride 97 L (98-112) meq/L Carbon Dioxide 23 (23-33) meq/L Anion Gap 7 (5-20) BUN 12 (7-22) mg/dL Creatinine 0.7 (0.70-1.50) mg/dL Estimated GFR (>60 ml/min/1.73m(2)) BUN/Creatinine Ratio 17.14 (6-20) Glucose 128 H (78-110) mg/dL Calculated Osmolality 265.0 L (267-292) mOsm/kg Calcium 9.0 (8.7-10.7) mg/dL Magnesium 1.8 (1.6-2.4) mg/dL Total Bilirubin 0.5 (0.3-1.2) mg/dL AST 22 (21-57) IU/L ALT 31 (21-72) IU/L Alkaline Phosphatase 82 (38-126) IU/L Troponin I < 0.012 (< 0.040) ng/mL C-Reactive Protein 1.8 H (0.0-0.9) mg/dL Total Protein 7.1 (6.1-8.0) g/dL Albumin 4.2 (3.5-4.8) g/dL Globulin 2.9 (2.50-4.10) g/dL Albumin/Globulin Ratio 1.40 (1.3-2.0) mg/g EKG Interpretation:: POSITIVE: Abnormal EKG (Sinus bradycardia with a sinus arrhythmia) - Patient's Progress Pain Medication Addressed: POSITIVE: Yes Re-examine Time: 11:43 Status: POSITIVE: Improved MDM / ED Course: Patient was examined, an IV started, blood drawn and sent to the lab for studies , radiographic and EKG studies were also obtained. Findings: Troponin is normal. EKG as interpreted by me shows sinus bradycardia with a sinus arrhythmia. CT scan of his head shows no acute intracranial abnormalities. CT scan of his cervical spine shows diffuse degenerative changes present, there is an incidental finding of a 7 cm spiculated mass in the left upper chest. CBC shows white count hemoglobin and hematocrit and platelets are normal. Comprehensive metabolic panel shows sodium low at 127. C- reactive protein is elevated at 1.8. Assessment: #1 lung mass suspicious for cancer. #2 sinus arrhythmia with sinus bradycardia. #3 hyponatremia. #4 syncopal episodes. #5 neck pain improved with NSAIDs and muscle relaxers. Plan: Discharge home, baclofen, NSAIDs. I have contacted Dr. Carney and informed him of the incidental finding concerning for lung cancer. Dr. Carney the be seeing this patient in clinic follow-up. CVA/Syncope Quality Measure Initiative: POSITIVE: EKG, NIH Stroke Scale (0) - Consult Consult (If Yes, Name of Consulting MD & Time Called): Yes (Dr. Carney to see in office for followup of lung mass in L lung) Consulting MD will see pt:: POSITIVE: In Office Counseled: POSITIVE: Patient, RE: Lab Results, RE: Radiology Results, RE: DX, RE : Need for F/U Patient Care Time - Estimated PCT Patient Care Time (In Minutes): 45 Vital Signs - Recent Vital Signs Vital Signs: Vital Signs (Last 8 hours) Temp Pulse Resp BP Pulse Ox 09/08/16 10:57 97.8 F 92 20 120/75 96 - VS Reviewed Vital Signs Reviewed: Yes Discharge Clinical Impression: Syncope, Neck pain, Lung mass, Hyponatremia Discharge Disposition: Discharged to Home Condition: Stable Patient Instructions Given at Discharge: Syncope (ED), Hyponatremia (ED), Neck Pain (ED)
[2016-09-08 10:26] LABS: HEMATOCRIT 42.9 % (42.0-52.0); HEMOGLOBIN 15.3 g/dL (14.0-18.0); MEAN CORPUSCULAR HEMOGLOBIN 35.8 PG (27-31); MEAN CORPUSCULAR HGB CONC 35.7 g/dL (33-37); MEAN CORPUSCULAR VOLUME 100.5 FL (80-90); RED BLOOD COUNT 4.27 10^6/uL (4.70-6.10)
[2016-09-08 10:27] LABS: BASOPHILS # (AUTO) 0.02 10*3/UL; BASOPHILS % (AUTO) 0.2 % (0-1); EOSINOPHILS # (AUTO) 0.13 10*3/UL; EOSINOPHILS % (AUTO) 1.6 % (0-8); LYMPHOCYTES # (AUTO) 1.38 10*3/uL; MEAN PLATELET VOLUME 10.2 FL (7.4-12.2); MONOCYTES # (AUTO) 0.99 10*3/UL (0.3-0.8); MONOCYTES % (AUTO) 11.9 % (5-15); NEUTROPHILS # (AUTO) 5.81 10*3/UL; NEUTROPHILS % (AUTO) 69.7 % (50-80); PLATELET MORPHOLOGY COMMENT NORMAL MORPHOLOGY (NORM); RBC MORPHOLOGY COMMENT NORMAL MORPHOLOGY (NORM); WBC MORPHOLOGY COMMENT NORMAL MORPHOLOGY (NORM)
[2016-09-08 10:29] LABS: BUN/CREATININE RATIO 17.14 (6-20); C-REACTIVE PROTEIN 1.8 mg/dL (0.0-0.9); MAGNESIUM 1.8 mg/dL (1.6-2.4); SERUM ALBUMIN 4.2 g/dL (3.5-4.8)
[2016-09-08 11:09] VITALS: RESP 20; TEMP 97.8
--- NOTE | 2016-09-08 11:21 | DI ---
CT HEAD W/O CONTRAST,09/08/2016 10:17 AM: Clinical History: Syncope Previous Exam: 06/20/16 Findings: Multiple helically acquired CT images are obtained through the brain without contrast, and demonstrat e diffuse age-related volume loss. There is no mass, hemorrhage or midline shift. Surrounding soft ti ssue and osseous structures are unremarkable. Impression: Normal CT head.
--- NOTE | 2016-09-08 11:25 | DI ---
CT CERVICAL SPINE W/O CONTRAST,09/08/2016 10:17 AM: Clinical History: Syncope and pain. Previous Exam: None at this facility. Findings: Multiple helically acquired CT images are obtained through the cervical spine without contrast, and d emonstrate some layering fluid within the mastoid air cells. There is also some fluid within the paranasal sinuses as well as some mucoperiosteal thickening. Peripheral vascular calcifications are seen. The skull base is unremarkable. There is diffuse COPD within the lung apices. There is what appears to be a spiculated mass within th e left lung apex measuring 7 mm in diameter. Facet hypertrophy and uncovertebral joint osteophytes are noted as well. The ossicles of the inner ear are unremarkable. Impression: 1. Diffuse degenerative changes of the spine without fractures. 2. 7 mm spiculated mass within the left lung apex. Recommend followup imaging as per [employer]isch[employer]ie ty guidelines. 3. Diffuse COPD within the lung apices. 4. Paranasal sinus disease. 5. Trace amount of fluid within the right mastoid air cells. This is likely related to the paranasal sinus disease.
--- NOTE | 2016-09-08 11:25 | DI ---
XR CXR 2VW PA/LAT,09/08/2016 10:15 AM: Clinical History: Shortness of breath Previous Exam: August 01, 2016 Findings: PA and lateral views of the chest are obtained, and demonstrate diffuse COPD with flattening of the h emidiaphragms bilaterally. There is some mild increased density within the lung apices most consisten t with scarring. Diffuse degenerative changes of the spine are noted. The ribs are unremarkable. Impression: Stable COPD. The 7 mm nodule seen on the CT cervical spine is not visible on this exam.
== END 2016-09-08 12:08 | disposition home or self-care (01) ==
LOC: ER 09:56 → SUPCPDRO 09:56 → ER 12:08
DX: R55 Syncope and collapse (principal); R51 Headache; M54.2 Cervicalgia; R06.02 Shortness of breath; R91.8 Other nonspecific abnormal finding of lung field; J44.9 Chronic obstructive pulmonary disease, unspecified; E87.1 Hypo-osmolality and hyponatremia
CPT/HCPCS: 70450; 71020; 72125; 80053; 83735; 84484; 85025; 86140; 96374; 96375; 99283 ×2; J1885; J2060; J7030

== ENCOUNTER → 2016-09-09 | Outpatient (CLI) | payer OTHER | LOC: MMPC 09:00 | PROVIDERS: ATTEND Family Medicine | DX: M54.2 Cervicalgia (principal); R91.8 Other nonspecific abnormal finding of lung field | CPT/HCPCS: 99213; G0463 ==

== ENCOUNTER 2016-09-24 10:55 | Emergency (ER) | payer OTHER ==
[2016-09-24] MEDS ORDERED: NORMAL SALINE 10 ML SYRINGE FLUSH IVP PRN (11:23)
[2016-09-24 11:32] VITALS: RESP 16; TEMP 97.4
--- NOTE | 2016-09-24 11:37 | PDOC ---
General Adult HPI - General Chief Complaint: Neurological Complaints Stated Complaint: PAIN/DIZZINESS WHEN TURNING HEAD TO THE LEFT Date Seen by Provider: 09/24/16 Time Seen by Provider: 11:25 Source: POSITIVE: Patient Exam Limitations: POSITIVE: No limitations Nurse's Notes Reviewed & Considered: Yes - History of Present Illness Initial Comment: The patient is an 81-year-old male who is sent to the emergency department from the physical therapy department with complaints of dizziness. The patient reports that for the past several months he has had some pain in the left side of his neck. When he turns his head to the left he states that he feels dizzy to the point that she occasionally feels like he is going to pass out. He denies any associated headache, change in vision, numbness or weakness in his arms or legs, chest pain. He does report chronic sinus congestion for the past 20 or 30 years. He was seen for this issue in the emergency room several weeks ago at which time he underwent lab work, EKG, head CT and neck CT. His head CT was unremarkable and the CT scan of his neck revealed degenerative changes. He also had a spiculated mass at the left apex of his lung. He did see Dr. Carney in follow-up and is scheduled for a follow-up CT scan on this in approximately 6 months. He has not had any recent changes in medication. Have you received a tetanus shot in the past 10 years?: Yes - Patient Home Medications Home Medications: Home Medications Diaper,Brief,Adult, Disposable [Depend] 1 each TOPICAL QID #160 each 11/14/15 Walker [Ultra-Light Rollator] 1 each MC ONCE #1 each 12/11/15 Gabapentin 600 mg PO BID #60 cap 06/18/16 Levothyroxine Sodium 25 mcg PO DAILY #30 tab 06/18/16 Montelukast Sodium 1 tab PO DAILY #30 tab 06/18/16 Oxybutynin Chloride 5 mg PO TID #90 tab 06/18/16 Sertraline HCl 1 tab PO DAILY #30 tab 06/18/16 Tamsulosin HCl 1 cap PO DAILY #30 cap 06/18/16 Tiotropium [place] [Spiriva] 1 puff INH DAILY #30 cap 06/18/16 Clopidogrel Bisulfate [Plavix] 1 tab PO DAILY #30 tab 06/24/16 Metoprolol Tartrate 25 mg PO BID 08/01/16 Hydrocodone/Acetaminophen [Hydrocodon-Acetaminophn 10-325] 1 tab PO Q4-6H #120 tab 09/09/16 Baclofen 10 mg PO TID #90 tab 09/16/16 - Patient Allergies Allergies/Adverse Reactions: Allergies Allergy/AdvReac Type Severity Reaction Status Date / Time codeine Allergy Severe RASH Verified 09/24/16 11:02 Penicillins Allergy RASH Verified 09/24/16 11:02 aspirin AdvReac Intermediate DYSPHORIA Verified 09/24/16 11:02 contrast dye Allergy Anaphylaxis Uncoded 09/24/16 11:02 Past Medical History - heen HEENT History: Glaucoma, Hard of Hearing, Dentures/Partials Additional HEENT History: Full top and bottom Cardiovascular History: Arrhythmia Additional Cardiovasular History: irregular, CARDIAC CATHETERIZATION WITH STENT PLACEMENT Respiratory History: COPD, Shortness of Breath, Pneumonia, Home Oxygen Use Gastrointestinal History: GERD Genitourinary History: Recurrent UTI, Other (please comment) Additional Genitourinary History: prostrate cancer Endocrine History: Denies History Musculoskeletal History: Arthritis, Back Pain, Other (please comment) Prosthesis or Implant: No Additional Musculoskeletal History: pain left hip, patient stated he has bulging disks in his back Neurological History: TIA Blood Disorders: Denies History Psychiatric History: Denies History History of Sexually Transmitted Diseases: No Cancer History: Other (please comment) Cancer Treatment / Date(s) of Treatment: SEED IMPLANT In Past Year Been Physically Harmed or Verbally Threatened: No (PER PATIENT) History of MDRO: No History of Other Communicable Diseases: No Tobacco Use: Current Every Day Smoker Alcohol Use: Occasionally Substance Use Type: None Previous Surgical History: Yes Type / Date of Surgery: Ankle surgery 1966,CA treatment 1986 Anesthesia Reactions: No Malignant Hyperthermia: No Family History of Malignant Hyperthermia: No Significant Family History: Diabetes, Hypertension Past Medical History Reviewed: Reviewed - No Changes ROS - Limitations ROS Limitations: No Limitations Constitution: DENIES: Chills, Fever Cardiovascular: DENIES: Chest Pain, Heart Palpitations, Edema Respiratory: DENIES: Cough Non Productive, Cough Productive, Shortness Of Breath Neurological: REPORTS: Dizziness. DENIES: Headache, Numbness, Weakness Gastrointestinal: REPORTS: Denies GI Symptoms Musculoskeletal: REPORTS: Denies MS Symptoms Genitourinary: REPORTS: Other (He reports that he did have a urinary tract infection several weeks ago however this was treated with antibiotics and he states he has been feeling better.) Eyes: REPORTS: Other (He denies any new vision complaints, he states that occasionally when watching TV he does get double vision however this is been ongoing for some time) ENT: REPORTS: Congestion (Chronic congestion) Skin: DENIES: Rash General Adult Exam - General Appearance General Appearance: POSITIVE: Alert, Cooperative, No Acute Distress - HEENT HEENT: POSITIVE: Head Inspection Nml, Eyes Inspection Nml, Nose Inspection Nml, Oral/Dental Inspect. Nml, PERRL, EOMI - Neck Neck: POSITIVE: Normal Inspection. NEGATIVE: Lymphadenopathy - Respiratory Respiratory: POSITIVE: No Respiratory Distress, Breath Sounds Normal - Cardiovascular Cardiovascular: POSITIVE: Regular Rate & Rhythm, No Murmur - Abdomen Abdomen: Soft: (All Quadrants), Denies Tenderness: (All Quadrants), No Distention: (All Quadrants) - Skin Skin: POSITIVE: Normal Color, No Rash - Extremities Extremity: Normal ROM: (All Extremities), Normal Inspection: (All Extremities) - Neurological / Psychological Neurological: POSITIVE: Oriented X3, rivet thrower Normal As Tested, Motor Normal, Sensation Normal, Other (No focal neurologic deficits) General Adult Progress - Results Reviewed by me Xrays/CTs/US Reviewed by me: Yes Discussed with Radiologist: Yes Radiology Findings: CT scan of his head reveals no acute intracranial findings per radiologist. He does have soft tissue densities in the right maxillary and ethmoid sinuses which is unchanged from previous however the radiologist did recommend follow-up. Lab Results Reviewed: Yes Lab Results:: Laboratory Results 09/24/16 Range/Units 12:14 WBC 8.47 (4.8-10.8) 10^3/uL RBC 4.31 L (4.70-6.10) 10^6/uL Hgb 15.8 (14.0-18.0) g/dL Hct 43.2 (42.0-52.0) % MCV 100.2 H (80-90) FL MCH 36.7 H (27-31) PG MCHC 36.6 (33-37) g/dL RDW Std Deviation 46.3 (39-50) fL RDW Coeff of Gabriella 12.8 (11.5-14.5) % Plt Count 210 (140-350) 10*3/uL MPV 9.6 (7.4-12.2) FL Immature Gran % (Auto) 0.2 (0-5) % Neut % (Auto) 63.8 (50-80) % Lymph % (Auto) 18.7 (10-50) % Holmes % (Auto) 12.9 (5-15) % Eos % (Auto) 3.5 (0-8) % Baso % (Auto) 0.9 (0-1) % Immature Gran # (Auto) 0.02 10*3/UL Neut # (Auto) 5.40 10*3/UL Lymph # (Auto) 1.58 10*3/uL Holmes # (Auto) 1.09 H (0.3-0.8) 10*3/UL Eos # (Auto) 0.30 10*3/UL Baso # (Auto) 0.08 10*3/UL WBC Morphology Comment Normal morphology (NORM) Plt Morphology Comment Normal morphology (NORM) RBC Morph Comment Normal morphology (NORM) Sodium 131 L (135-145) meq/L Potassium 4.7 (3.8-5.2) meq/L Chloride 99 (98-112) meq/L Carbon Dioxide 22 L (23-33) meq/L Anion Gap 10 (5-20) BUN 17 (7-22) mg/dL Creatinine 0.8 (0.70-1.50) mg/dL Estimated GFR (>60 ml/min/1.73m(2)) BUN/Creatinine Ratio 21.25 H (6-20) Glucose 94 (78-110) mg/dL Calculated Osmolality 273.0 (267-292) mOsm/kg Calcium 9.3 (8.7-10.7) mg/dL Magnesium 2.0 (1.6-2.4) mg/dL Total Bilirubin 0.5 (0.3-1.2) mg/dL AST 19 L (21-57) IU/L ALT 33 (21-72) IU/L Alkaline Phosphatase 73 (38-126) IU/L Troponin I < 0.012 (< 0.040) ng/mL Total Protein 7.2 (6.1-8.0) g/dL Albumin 4.4 (3.5-4.8) g/dL Globulin 2.9 (2.50-4.10) g/dL Albumin/Globulin Ratio 1.50 (1.3-2.0) mg/g EKG Interpreted/Reviewed By Me:: Yes EKG Interpretation:: POSITIVE: Other (Sinus bradycardia with no acute ST segment or T-wave changes unchanged from previous) - Patient's Progress MDM / ED Course: The patient presents to the emergency department and the recommendation of physical therapy with complaints of dizziness and feeling like he might pass out. The symptoms of been ongoing for at least the past several months. At this time his EKG shows normal sinus rhythm/sinus bradycardia with no acute changes. His blood work is all essentially unremarkable. Head CT shows no acute findings. We did check orthostatic vital signs and there is no significant drop in blood pressure or rise in pulse. The exact etiology of the patient's dizziness is unclear. It is possible that this may have something to do with his in her ear. He also does have soft tissue densities in the right maxillary and ethmoid sinuses unchanged from previous. At this point I recommended that he continue to use his walker to assist with ambulation. He is to continue his medications as previously prescribed. He will return to the emergency room if any worsening or change in symptoms. Recommended follow-up with primary care. - Consult Counseled: POSITIVE: Patient, RE: Lab Results, RE: Radiology Results, RE: DX, RE : Need for F/U Patient Care Time - Estimated PCT Patient Care Time (In Minutes): 30 Vital Signs - Recent Vital Signs Vital Signs: Vital Signs (Last 8 hours) Temp Pulse Pulse Pulse Pulse Pulse Resp 09/24/16 12:16 59 L 56 L 68 09/24/16 11:16 97.4 F 61 16 09/24/16 10:55 97.4 F 61 16 BP BP BP BP Pulse Ox 09/24/16 12:16 119/76 107/62 112/58 09/24/16 11:16 119/61 96 09/24/16 10:55 119/76 96 - VS Reviewed Vital Signs Reviewed: Yes Discharge Clinical Impression: Near syncope Discharge Disposition: Discharged to Home Condition: Stable Patient Instructions Given at Discharge: Near Syncope (ED), Dizziness (ED) Additional Instructions: The CAT scan of your brain was normal. You continue to have some increased densities in your right sinuses which are unchanged from previous CAT scans however the radiologist did recommend follow-up. Your blood work was all essentially normal today as well. It is unclear what is contributing to this dizziness however it may be related to your in her ear. Continue to use the walker to assist with walking. Continue your current medications as previously prescribed. Return to the emergency room if any worsening or change in symptoms. Recommend follow-up with Dr. Carney. Follow Up With: LEIF SOLORZANO [Primary Care Provider] -
--- NOTE | 2016-09-24 11:47 | EKG ---
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
[2016-09-24 12:16] LABS: BASOPHILS # (AUTO) 0.08 10*3/UL; BASOPHILS % (AUTO) 0.9 % (0-1); EOSINOPHILS % (AUTO) 3.5 % (0-8); HEMATOCRIT 43.2 % (42.0-52.0); HEMOGLOBIN 15.8 g/dL (14.0-18.0); LYMPHOCYTES # (AUTO) 1.58 10*3/uL; MEAN CORPUSCULAR HEMOGLOBIN 36.7 PG (27-31); MEAN CORPUSCULAR HGB CONC 36.6 g/dL (33-37); MEAN CORPUSCULAR VOLUME 100.2 FL (80-90); MEAN PLATELET VOLUME 9.6 FL (7.4-12.2); MONOCYTES # (AUTO) 1.09 10*3/UL (0.3-0.8); MONOCYTES % (AUTO) 12.9 % (5-15); NEUTROPHILS % (AUTO) 63.8 % (50-80); RED BLOOD COUNT 4.31 10^6/uL (4.70-6.10)
[2016-09-24 12:23] LABS: PLATELET MORPHOLOGY COMMENT NORMAL MORPHOLOGY (NORM); RBC MORPHOLOGY COMMENT NORMAL MORPHOLOGY (NORM); WBC MORPHOLOGY COMMENT NORMAL MORPHOLOGY (NORM)
[2016-09-24 12:26] LABS: BUN/CREATININE RATIO 21.25 (6-20); CALCIUM 9.3 mg/dL (8.7-10.7); SERUM ALBUMIN 4.4 g/dL (3.5-4.8)
--- NOTE | 2016-09-24 12:59 | DI ---
CT HEAD W/O CONTRAST,09/24/2016 11:23 AM: Clinical History: Dizziness Previous Exam: September 08, 2016 Findings: Multiple helically acquired CT images are obtained through the brain without contrast, and demonstrat e diffuse age-related volume loss. A few peripheral vascular calcifications are seen. There is soft tissue density involving the right ethmoid and sphenoid sinuses. This was also seen on the prior exam. There appears to be some obstruction of the right ostiomeatal complex with some mild soft tissue dens ity in the dependent portion of the right maxillary sinus. Impression: 1. No acute intracranial pathology. 2. Soft tissue density within the right ethmoid sinuses and right maxillary sinus. This is unchanged from the prior exam. Correlate with physical exam as this could represent neoplasia. This could also simply represent some paranasal sinus disease.
== END 2016-09-24 13:30 | disposition home or self-care (01) ==
LOC: ER 10:55
DX: R55 Syncope and collapse (principal); M54.2 Cervicalgia; R06.02 Shortness of breath; R09.81 Nasal congestion; R42 Dizziness and giddiness; Z85.46 Personal history of malignant neoplasm of prostate
CPT/HCPCS: 70450; 80053; 83735; 84484; 85025; 93005; 93010; 99283

== ENCOUNTER 2018-03-30 14:20 | Inpatient (IN) ==
[2018-03-30] MEDS ORDERED: IPRATROPIUM/ALBUTEROL SULFATE 3 ML NEB NEB ONE ×2 (14:51→15:19)
--- NOTE | 2018-03-30 14:51 | EKG ---
[address] [address] Measurements Intervals [place] Rate: 66 P: [place]: 0 QRS: -7 QRSD: 102 T: -4 QT: 396 QTc: 409 Interpretive Statements ATRIAL FIBRILLATION LOW QRS VOLTAGE IN EXTREMITY LEADS [QRS DEFLECTION < 0.5 mV IN LIMB LEADS] ABNORMAL RHYTHM ECG [email or web address]
--- NOTE | 2018-03-30 14:53 | EKG ---
[address] [place] [address] Measurements Intervals [place] Rate: 66 P: 76 DE: 159 QRS: -21 QRSD: 102 T: -9 QT: 388 QTc: 402 Interpretive Statements SINUS RHYTHM WITH SINUS ARRHYTHMIA BORDERLINE LEFT AXIS DEVIATION [QRS AXIS < -20] LOW QRS VOLTAGE IN EXTREMITY LEADS Compared to ECG 03/30/2018 14:49:57 Atrial fibrillation no longer present Electronically Signed On 03-30-18 16:12:48 MST by James Vazquez [email or web address]
[2018-03-30 14:57] LABS: BASOPHILS # (AUTO) 0.03 10*3/UL; BASOPHILS % (AUTO) 0.3 % (0-1); EOSINOPHILS # (AUTO) 0.28 10*3/UL; EOSINOPHILS % (AUTO) 3.1 % (0-8); Hematocrit [HCT] 39.8 % (42.0-52.0); Hemoglobin [HGB] 13.4 g/dL (14.0-18.0); LYMPHOCYTES # (AUTO) 2.22 10*3/uL; MEAN CORPUSCULAR HEMOGLOBIN 34.6 PG (27-31); MEAN CORPUSCULAR HGB CONC 33.7 g/dL (33-37); MEAN CORPUSCULAR VOLUME 102.8 FL (80-90); MEAN PLATELET VOLUME 10.8 FL (7.4-12.2); MONOCYTES # (AUTO) 1.27 10*3/UL (0.3-0.8); MONOCYTES % (AUTO) 13.9 % (5-15); NEUTROPHILS # (AUTO) 5.31 10*3/UL; NEUTROPHILS % (AUTO) 58.2 % (50-80); RED BLOOD COUNT 3.87 10^6/uL (4.70-6.10)
[2018-03-30 15:04] LABS: BLOOD UREA NITROGEN 13 mg/dL (7-22); BUN/CREATININE RATIO 18.57 (6-20)
[2018-03-30 15:07] LABS: PLATELET MORPHOLOGY COMMENT NORMAL MORPHOLOGY (NORM); RBC MORPHOLOGY COMMENT NORMAL MORPHOLOGY (NORM); WBC MORPHOLOGY COMMENT NORMAL MORPHOLOGY (NORM)
[2018-03-30 15:52] LABS: VENOUS PH 7.36 (7.32-7.42)
[2018-03-30] MEDS ORDERED: LEVALBUTEROL HCL 0.63 MG/3 ML NEB ONE (16:15)
--- NOTE | 2018-03-30 16:54 | DI ---
PA /LATERAL CHEST, 03/30/2018 2:50 PM : Clinical History: Dyspnea. Previous Exam: 06/26/2017; 08/05/2017; 02/05/2018; and 03/23/2018. Soft Tissues: No acute soft tissue abnormality. Bones: Osteoporosis. Heart: Mild cardiomegaly without overt CHF. Lungs: No acute infiltrate or effusion. Extensive "tram tracking" in the lower lobes consistent with chronic bronchitis or bronchiectasis. This pattern waxes and wanes over the serial exams. Atelectasis in the lingular segment, and this has remained stable most likely representing atelectatic scarring. Centrilobular emphysema. Debbie A and Debbie B lines indicating chronic interstitial pulmonary fibro sis. Effusion(s): None. Mediastinum: Normal mediastinum. Nodules: No pulmonary nodules. Readin. No acute infiltrate or effusion, but there is "tram tracking" in both lower lung bases consistent with chronic bronchitis or bronchiectasis. This appearance has waxed and waned over the serial exams and is more prominent than on the most recent previous exam. 2. Centrilobular emphysema with chronic interstitial pulmonary fibrosis.
[2018-03-30] MEDS ORDERED: HYDROcodone-APAP 10 MG-325 MG TABLET PO PRN (17:21)
[2018-03-30] MEDS ORDERED: LIDOCAINE W/ SODIUM BICARB 0.5 ML SYR SUBD PRN (17:21)
[2018-03-30] MEDS ORDERED: WALKER MC SCH (17:21)
[2018-03-30] MEDS ORDERED: AZITHROMYCIN 250 MG TABLET PO ONE (17:21)
[2018-03-30] MEDS ORDERED: UMECLIDINIUM BROMIDE INH SCH (17:21)
[2018-03-30] MEDS: IPRATROPIUM/ALBUTEROL SULFATE 3 ML NEB NEB SCH (19:03)
[2018-03-30] MEDS ORDERED: SODIUM CHLORIDE 44 ML SPRAY ENOS PRN (19:09)
--- NOTE | 2018-03-30 19:14 | PDOC ---
HPI - History of Present Illness Date of Service: 03/30/18 Time of Service: 19:09 Chief Complaint: Short of breath History of Present Illness: This very pleasant 83-year-old male with COPD, coronary artery disease, 4 L oxygen requirement with chronic hypoxemic respiratory failure, severe deviated nasal septum for which she is not a surgical candidate, amongst other medical issues, who comes in accompanied by his daughter today. He was apparently brought in earlier today by his son. The complaint was that he was quite short of breath, breathing rapidly, and he was given 2 breathing treatments in the emergency room which seemed to help the patient feel much better. He has been coughing up green-colored phlegm. He states to me that he coughs up phlegm over the last couple of years. He cannot to me whether it's worse or better. He denies any fevers, chills. He tells me he only uses his breathing therapies maybe a few times per month, although he was recently admitted for respiratory issues at [facility] and they told him that he should be using his breathing treatments at a minimum of 3 times per day. X-ray tonight shows evidence of bronchiectasis, pulmonary fibrosis, and COPD. I looked at the prior CT scan of the chest in 2018, and it looks consistent with emphysema and pulmonary fibrosis along with honeycombing of the lungs. Patient did receive his flu shot this season and got that in January 2018. Thus far, his workup was negative for influenza or respiratory viral illnesses. I have ordered Zith romax and prednisone for him. I had a candid discussion with him and his daughter about the fact that he is likely entering an end-of-life stage of pulmonary fibrosis, bronchiectasis, and COPD. Patient denies any current chest pain but states that he does get chest pains with these episodes of shortness of breath. He is not able to walk very far in his home, but can make it about 50 feet before he has to stop and rest. He continues to smoke, 4-5 cigarettes a day. Past Medical History Medical History: 1. COPD, 4 L oxygen requirement at home. 2. Tobacco abuse. 3. History of prostate cancer status post seed implants. 4. Hypothyroidism. 5. Osteoarthritis in knees and back. 6. GERD. 7. Peripheral neuropathy, unclear etiology, on neurontin. 8. Coronary artery disease, apparently status post stents. 9. Severely deviated nasal septum causing nasal obstruction, due to severe COPD, not a surgical candidate. 10. Atrial fibrillation, on Eliquis for stroke prevention Surgical History: 1. Right knee replacement. 2. Left knee surgery. 3. Foot surgery. 4. History of stent placement Pertinent Family History: Significant for heart disease in his mother. Past Social History: Smokes. Denies alcohol use. for over 60 years. 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 Plays the youwho and a guitar. Has 3 children, but unfortunately he had one son that . Tobacco Use: Current Every Day Smoker In the Past 12 Months, Have Used or Abuse Any of the Following Substance: None Alcohol Use: None Medication / Allergies Home Medications: Home Medications Medication Instructions Recorded Confirmed Type Diaper,Brief,Adult, Disposable 1 ea TOPICAL QID #160 ea 11/14/15 03/30/18 Rx [Depend] Walker [Ultra-Light Rollator] 1 ea MC ONCE #1 ea 12/11/15 03/30/18 Rx umeclidinium 62.5 mcg/actuation 1 inh INH Q24H #30 ea 02/03/17 03/30/18 Rx blister powder for inhalation fluticasone 100 mcg-vilanterol 25 1 inh INH QDAY #60 ea 10/14/17 03/30/18 Rx mcg/dose powder for inhalation folic acid 1 mg tablet 1 mg PO QDAY #30 tab 12/22/17 03/30/18 Rx hydrocortisone 2.5 % topical cream 1 applic TOPICAL BID PRN #120 g 12/29/17 03/30/18 Rx atorvastatin 40 mg tablet 40 mg PO QDAY #30 tab 01/18/18 03/30/18 Rx apixaban 5 mg tablet 5 mg PO BID #60 tab 01/22/18 03/30/18 Rx metoprolol tartrate 25 mg tablet 12.5 mg PO BID #30 tab 01/22/18 03/30/18 Rx oxybutynin chloride 5 mg tablet 5 mg PO TID #90 tab 02/01/18 03/30/18 Rx montelukast 10 mg tablet 10 mg PO QPM #90 tab 02/23/18 03/30/18 Rx hydrocodone 10 mg-acetaminophen 1 tab PO Q4-6H PRN #120 tab 03/09/18 03/30/18 Rx 325 mg tablet levothyroxine 25 mcg tablet 25 mcg PO QDAY #30 tab 03/10/18 03/30/18 Rx sertraline 50 mg tablet 50 mg PO DAILY #30 tab 03/15/18 03/30/18 Rx tamsulosin 0.4 mg capsule 0.4 mg PO QDAY #30 cap 03/29/18 03/30/18 Rx Gabapentin 300 mg PO BID 03/30/18 03/30/18 History L. Acidophilus/L.bulgaricus 1 tab PO DAILY 03/30/18 03/30/18 History [Lactobacillus Tablet] Pantoprazole Sodium [Protonix] 40 mg PO DAILY 03/30/18 03/30/18 History Sennosides/Docusate Sodium 2 tab PO BEDTIME 03/30/18 03/30/18 History [Senokot-S Tablet] Allergies/Adverse Reactions: Allergies Allergy/AdvReac Type Severity Reaction Status Date / Time codeine Allergy Severe RASH Verified 03/30/18 14:39 Penicillins Allergy RASH Verified 03/30/18 14:39 aspirin AdvReac Intermediate DYSPHORIA Verified 03/30/18 14:39 contrast dye Allergy Anaphylaxis Uncoded 03/30/18 14:39 Review of Systems - Review of Systems ROS Unobtainable: Due to Condition (WAs quite short of breath during the exam. He did give me a couple of systems reviewed as noted below.) - Cardiovascular Cardiovascular: REPORTS: Negative System Review - Gastrointestinal Gastrointestinal / Abdominal: REPORTS: Negative System Review - Genitourinary Genitourinary: REPORTS: Nocutria, Other (Chronic prostate issues from history of prostate cancer with seed implants.) - Musculoskeletal Musculoskeletal: REPORTS: Other (Chronic back and knee pain.) Exam - Vitals Vital Signs: Vital Signs Temperature 97.1 F Temperature Source Temporal Artery Scan Pulse Rate [Pulse Oximeter 67 Right] Pulse Rate 70 Respiratory Rate 16 Blood Pressure [Left Arm] 135/74 Blood Pressure 133/70 Pulse Ox 99 Oxygen Flow Rate 4 Oxygen Delivery Method Nasal Cannula Height 5 ft 6 in Weight 213 lb 2 oz - General General Appearance: Cooperative, Mild Distress (He is breathing in the mid 20s, and occasionally does some tripoding to breathe, but states that he is comfortable. He does not appear to be in acute respiratory distress.) - Head Head Exam: Normal Inspection, Normocephalic, Atraumatic - Eye Eye Exam: POSITIVE: No Scleral Icterus - ENT ENT Exam: POSITIVE: Mucous Membranes Moist - Neck Neck Exam: Normal Inspection, No Tenderness, No Lymphadenopathy, No Thyromegaly, JVP is not Raised - Respiratory Respiratory Exam: POSITIVE: Crackles, Wheezes, Coarse Breath Sounds, Dull to Percussion - Cardiovascular Cardiovascular Exam: POSITIVE: RRR, No Murmur, No Clicks, No Gallops, No Rubs, No JVD - GI/Abdominal GI/Abdominal Exam: POSITIVE: Normal Bowel Sounds, Non Tender, Non Distended, Soft - Rectal Rectal Exam: POSITIVE: Deferred - External Exam: POSITIVE: Deferred Exam: POSITIVE: Deferred - Extremities Extremities Exam: POSITIVE: No Edema Present, No Cyanosis Present, Clubbing Present - Back Back Exam: POSITIVE: No CVA Tenderness - Neurological Neurological Exam: POSITIVE: Alert, Oriented x 3, No Facial Droop, Speech Intact / Clear, Moves All Extremities Equally - Psychiatric Psychiatric Exam: POSITIVE: Normal Affect, Normal Mood Results - Labs CBC and BMP: 03/30/18 14:35 03/30/18 14:35 Additional Lab Results: Laboratory Results 03/30/18 03/30/18 03/30/18 14:34 14:35 14:35 WBC 9.13 RBC 3.87 L Hgb 13.4 L Hct 39.8 L MCV 102.8 H MCH 34.6 H MCHC 33.7 RDW Std Deviation 50.2 H RDW Coeff of Gabriella 13.7 Plt Count 192 MPV 10.8 Immature Gran % (Auto) 0.2 Neut % (Auto) 58.2 Lymph % (Auto) 24.3 [place] % (Auto) 13.9 Eos % (Auto) 3.1 Baso % (Auto) 0.3 Immature Gran # (Auto) 0.02 Neut # (Auto) 5.31 Lymph # (Auto) 2.22 [place] # (Auto) 1.27 H Eos # (Auto) 0.28 Baso # (Auto) 0.03 WBC Morphology Comment Normal morphology Plt Morphology Comment Normal morphology RBC Morph Comment Normal morphology PT 10.0 INR 0.98 D-Dimer 0.58 VBG pH 7.36 VBG pCO2 41 L VBG HCO3 23 VBG Base Excess -2 Sodium Potassium Chloride Carbon Dioxide Anion Gap BUN Creatinine BUN/Creatinine Ratio Glucose Calculated Osmolality Lactic Acid Calcium Total Bilirubin AST ALT Alkaline Phosphatase CK-MB (CK-2) Troponin I NT-Pro-B Natriuret Pep Total Protein Albumin Globulin Albumin/Globulin Ratio 03/30/18 03/30/18 03/30/18 14:35 14:35 14:35 WBC RBC Hgb Hct MCV MCH MCHC RDW Std Deviation RDW Coeff of Gabriella Plt Count MPV Immature Gran % (Auto) Neut % (Auto) Lymph % (Auto) [place] % (Auto) Eos % (Auto) Baso % (Auto) Immature Gran # (Auto) Neut # (Auto) Lymph # (Auto) [place] # (Auto) Eos # (Auto) Baso # (Auto) WBC Morphology Comment Plt Morphology Comment RBC Morph Comment PT INR D-Dimer VBG pH VBG pCO2 VBG HCO3 VBG Base Excess Sodium 136 Potassium 4.4 Chloride 102 Carbon Dioxide 27 Anion Gap 7 BUN 13 Creatinine 0.7 BUN/Creatinine Ratio 18.57 Glucose 97 Calculated Osmolality 281.0 Lactic Acid 0.8 Calcium 9.2 Total Bilirubin 0.4 AST 21 ALT 17 L Alkaline Phosphatase 65 CK-MB (CK-2) 1.92 Troponin I < 0.012 NT-Pro-B Natriuret Pep 799 H Total Protein 6.9 Albumin 4.0 Globulin 2.9 Albumin/Globulin Ratio 1.30 - EKG Data -: EKG Interpreted by Me Rate: Normal EKG Shows Normal: Sinus Rhythm (The P waves are very small, but appear present before the QRS complexes on my view of the EKG.) - Imaging Status: Image Reviewed by Me (Chest x-ray shows no evidence of pneumonia. There appear to be some Filomena- B lines. CT scan of the chest, in 2018, shows evidence of COPD, honeycombing, and fibrosis) Assessment and Plan - Patient Problems (1) COPD exacerbation Current Visit: Yes Status: Acute Code(s): J44.1 - Chronic obstructive pulmonary disease with (acute) exacerbation (2) Pulmonary fibrosis Current Visit: Yes Status: Acute Code(s): J84.10 - Pulmonary fibrosis, unspecified (3) Benign hypertension Current Visit: Yes Status: Acute (4) Chronic low back pain Current Visit: Yes Status: Chronic Code(s): M54.5 - Low back pain; G89.29 - Other chronic pain Qualifiers: Back pain laterality: bilateral Sciatica presence: without sciatica Qualified Code(s): M54.5 - Low back pain; M54.5 - Low back pain; G89.29 - Other chronic pain; G89.29 - Other chronic pain (5) Coronary artery disease Current Visit: Yes Status: Chronic Code(s): I25.10 - Atherosclerotic heart disease of [place] coronary artery without angina pectoris Qualifiers: Coronary Disease-Associated Artery/Lesion type: [place] artery [place] vs. transplanted heart: [place] heart Associated angina: without angina Qualified Code(s): I25.10 - Atherosclerotic heart disease of [place] coronary artery with out angina pectoris; I25.10 - Atherosclerotic heart disease of [place] coronary artery without angina pectoris; I25.10 - Atherosclerotic heart disease of [place] coronary artery without angina pectoris (6) Gastroesophageal reflux disease Current Visit: Yes Status: None Qualifiers: Esophagitis presence: esophagitis presence not specified Qualified Code(s): K21.9 - Gastro-esophageal reflux disease without esophagitis (7) Hypothyroidism Current Visit: Yes Status: Chronic Code(s): E03.9 - Hypothyroidism, unspecified Qualifiers: Hypothyroidism type: acquired Qualified Code(s): E03.9 - Hypothyroidism, unspecified (8) Peripheral neuropathy, idiopathic Current Visit: Yes Status: Chronic Code(s): G60.9 - Hereditary and idi opathic neuropathy, unspecified (9) Tobacco abuse Current Visit: Yes Status: Chronic Code(s): Z72.0 - Tobacco use (10) Deviated nasal septum Current Visit: Yes Status: Acute Code(s): J34.2 - Deviated nasal septum - Assessment / Plan Additional Assessment/Plan Details: admit inpatient patient would benefit from LAMA-LABA therapy, but will use nebulized Duonebs and albuterol in hospital hold inhaled corticosteroids, but I will use systemic steroids with prednisone Patient has had influenza vaccine this season already. prednisone, 40 mg daily for 5 days zithromax, 500 mg PO on day one, then 250 mg daily, and I think he would benefit from 250 mg by mouth daily indefinitely as this is now his third infection in the last few months. oxygen to maintain oxygen saturations at 91%, currently that's on 4 L. There is no evidence of CO2 retention, so I'm okay with Vapotherm if necessary code status is DNR check CBC with diff in AM, BMP in a.m. Unlikely that there is PE, given normal d-dimer and use of Eliquis We talked about quitting smoking, but it's unlikely that the patient will comply with that I stressed the importance of continuing breathing therapies, and I suspect that the patient would benefit from visiting with a church warden to discuss options for pulmonary fibrosis in the setting of COPD and probable bronchiectasis. DVT prophylaxis chemical with Eliquis Overall, I think the patient's prognosis is very guarded, and he likely has less than 6 months to live. It looks to me based on chest x-ray data at this point, that the fibrosis is probably progressive, and I would think that if he does not recover well, and with recent history of hospitalizations and infections treated on an outpatient basis, that his respiratory disease is regressing to a point where we may not be able to do much to reverse this disease process or keep it at bay. Obviously, smoking and continued smoking does not help. Perhaps he'll be a candidate for Imuran therapy, but I think that's best determine with a pu lmonologist. After CT scan tomorrow, I'll try to call and see if we can't arrange something on an outpatient basis for the patient. I discussed the above plan with the patient, his daughter, and his son-in-law, and they all agreed to the plan.
--- NOTE | 2018-03-30 20:08 | PDOC ---
Dyspnea HPI - General Chief Complaint: Respiratory Complaint Stated Complaint: WORSENING SHORTNESS OF BREATH X3-4 DAYS Date Seen by Provider: 03/30/18 Time Seen by Provider: 14:35 Source: POSITIVE: Patient, Other (son) Exam Limitations: POSITIVE: No limitations Treatment Prior to Arrival: REPORTS: Oxygen Nurse's Notes Reviewed & Considered: Yes - History of Present Illness Initial Comments: The patient is an 83-year-old male who is brought to the emergency room by his son, with whom he lives along with his . Patient complains of a 3 to four- day history of progressive cough and shortness of breath. Patient states that "my lungs are full of fluid". He states he is coughing up "a lot of yellow junk". No known fevers. Patient does have a history of COPD and continues to smoke 5-10 cigarettes per day. Patient denies any chest pain. He states he has increased dyspnea, "especially when lying down". He states he has had pneumonia in the past. Patient is on apixaban, apparently for atrial fibrillation. Patient was recently admitted to [facility] [place] for 24 hours with similar complaints, "but not this bad ". Patient has a past history of prostate cancer patient is supposed to be on 4 L of oxygen per minute continuously at home. Patient has had a coronary artery stents. He is supposed to be taking beta agonist treatments by nebulizer at home, but acknowledges that he has not been doing so. Body Location Affected: REPORTS: Chest Timing: REPORTS: Gradual, Improved Duration: <1 week (3-4 days) Severity: Moderate Quality: REPORTS: Other (Patient denies any chest or other pain.) Initiating Event: DENIES: Upper Respiratory Illness, Out of Medications, Sports, Exercise, Aspiration, Choking, Allergy, Exposure - Smoke, Exposure - Mold, Exposure - Other Allergen Context: REPORTS: Exertion Exacerbated By: REPORTS: Exertion, Laying Flat Associated Symptoms: REPORTS: Productive Cough (Productive of yellow mucoid sputum). DENIES: Fever, Chills, Sweating, Chest Pain, Chest Discomfort, Left Chest, Right Chest, Central Chest, Chest Heaviness, Chest Tightness, Painful Breathing, Radiation to Back, Radiation to Jaw, Radiation to Arm, Bloody Cough, Heart Racing, Leg Pain, Calf Pain, Ankle Swelling, Leg Swelling, Dizziness, Light-Headedness, Anxiety, Tingling - Hands, Tingling - Face, Muscle Spasms - Hands, Muscle Spasms - Feet Similar Symptoms Previously: Yes Recently seen/treated/hospitalized: Yes Any Prior Injuries Related to Current Complaint?: No - Patient Home Medications Home Medications: Home Medications Diaper,Brief,Adult, Disposable [Depend] 1 ea TOPICAL QID #160 ea 11/14/15 Walker [Ultra-Light Rollator] 1 ea MC ONCE #1 ea 12/11/15 umeclidinium 62.5 mcg/actuation blister powder for inhalation 1 inh INH Q24H #30 ea 02/03/17 fluticasone 100 mcg-vilanterol 25 mcg/dose powder for inhalation 1 inh INH QDAY #60 ea 10/14/17 folic acid 1 mg tablet 1 mg PO QDAY #30 tab 12/22/17 hydrocortisone 2.5 % topical cream 1 applic TOPICAL BID PRN #120 g 12/29/17 atorvastatin 40 mg tablet 40 mg PO QDAY #30 tab 01/18/18 apixaban 5 mg tablet 5 mg PO BID #60 tab 01/22/18 metoprolol tartrate 25 mg tablet 12.5 mg PO BID #30 tab 01/22/18 oxybutynin chloride 5 mg tablet 5 mg PO TID #90 tab 02/01/18 montelukast 10 mg tablet 10 mg PO QPM #90 tab 02/23/18 hydrocodone 10 mg-acetaminophen 325 mg tablet 1 tab PO Q4-6H PRN #120 tab 03/09/18 levothyroxine 25 mcg tablet 25 mcg PO QDAY #30 tab 03/10/18 sertraline 50 mg tablet 50 mg PO DAILY #30 tab 03/15/18 tamsulosin 0.4 mg capsule 0.4 mg PO QDAY #30 cap 03/29/18 Gabapentin 300 mg PO BID 03/30/18 L. Acidophilus/L.bulgaricus [Lactobacillus Tablet] 1 tab PO DAILY 03/30/18 Pantoprazole Sodium [Protonix] 40 mg PO DAILY 03/30/18 Sennosides/Docusate Sodium [Senokot-S Tablet] 2 tab PO BEDTIME 03/30/18 - Patient Allergies Allergies/Adverse Reactions: Allergies Allergy/AdvReac Type Severity Reaction Status Date / Time codeine Allergy Severe RASH Verified 03/30/18 14:39 Penicillins Allergy RASH Verified 03/30/18 14:39 aspirin AdvReac Intermediate DYSPHORIA Verified 03/30/18 14:39 contrast dye Allergy Anaphylaxis Uncoded 03/30/18 14:39 Past Medical History - heen HEENT History: Glaucoma, Hard of Hearing, Dentures/Partials Additional HEENT History: Full top and bottom Cardiovascular History: Arrhythmia, Other (please comment) Additional Cardiovasular History: irregular, CARDIAC CATHETERIZATION WITH STENT PLACEMENT Respiratory History: COPD, Shortness of Breath, Pneumonia, Home Oxygen Use Gastrointestinal History: GERD Genitourinary History: Recurrent UTI, Other (please comment) Additional Genitourinary History: prostrate cancer, kidney stents Endocrine History: Denies History Musculoskeletal History: Arthritis, Back Pain, Other (please comment) Prosthesis or Implant: No Additional Musculoskeletal History: pain left hip, patient stated he has bulging disks in his back Neurological History: TIA Blood Disorders: Denies History Psychiatric History: Denies History History of Sexually Transmitted Diseases: No Male Reproductive History: Denies History Cancer History: Other (please comment) Cancer Treatment / Date(s) of Treatment: SEED IMPLANT In Past Year Been Physically Harmed or Verbally Threatened: No History of MDRO: No History of Other Communicable Diseases: No Tobacco Use: Current Every Day Smoker Alcohol Use: Occasionally In the Past 12 Months, Have Used or Abuse Any Substance: None Previous Surgical History: Yes Type / Date of Surgery: Ankle surgery 1966,CA treatment 1986, MADELEINE TKA. URETERAL STENT Anesthesia Reactions: No Malignant Hyperthermia: No Significant Family History: Diabetes, Hypertension Past Medical History Reviewed: Reviewed - No Changes ROS - Limitations ROS Limitations: No Limitations Constitution: REPORTS: Weakness Cardiovascular: REPORTS: Denies Cardiac Symptoms Respiratory: REPORTS: Cough Productive, Shortness Of Breath, Wheezing Neurological: REPORTS: Denies Neuro Symptoms Gastrointestinal: REPORTS: Denies GI Symptoms Endocrine: REPORTS: Denies Symptoms Musculoskeletal: REPORTS: Denies MS Symptoms Genitourinary: REPORTS: Denies Symptoms Eyes: REPORTS: Denies Symptoms ENT: REPORTS: Denies Symptoms Skin: REPORTS: Denies Skin Symptoms Lympathic: REPORTS: Denies Lympathic Symptoms Immunologic: POSITIVE: Denies Symptoms Psychiatric: POSITIVE: Denies Psych Symptoms Dyspnea Physical Exam - General Appearance General Appearance: REPORTS: Alert, Cooperative, No Acute Distress, No Evidence of Trauma - HEENT HEENT: POSITIVE: Head Inspection Nml, Eyes Inspection Nml, Ears Inspection Nml, Nose Inspection Nml, Oral/Dental Inspect. Nml, Pharynx Inspect. Nml, PERRL, EOMI - Neck Neck: REPORTS: Normal Inspection, No Carotid Bruit - Respiratory Respiratory: REPORTS: No Pleuritic Chest Pain, Speaks Full Sentences, No Pain on Inspiration, Respiratory Distress (Mild), Wheezes, Rhonchi, Prolonged Expirations. DENIES: No Respiratory Distress (Dictated a 36/m; oxygen saturation on room air around 85%), Breath Sounds Normal (Diffuse rhonchi and wheezing), Fatigue, Rales, Accessory Muscle Use, Retractions, Splinting, Dull on Percussion, Decreased Air Movement, Chest Wall Tenderness, Speaks Broken Sentences, Stridor, Respiratory Failure - Cardiovascular Cardiovascular: REPORTS: Heart Sounds Normal, Equal Pulses, Strong Pulses, No Murmur, No Gallop, No Friction Rub, No JVD, Irregularly Irreg Rhythm. DENIES: Regular Rate and Rhythm (Irregularly irregular rhythm), Tachycardia, Bradycardia , Occasional Extrasystoles, Frequent Extrasystoles, JVD Present, S3 Gallop, S4 Gallop, Murmur, Friction Rub, Cory's Crunch Peripheral Pulses: Radial (R): 2+, Radial (L): 2+ - Abdomen Abdomen: Soft: (All Quadrants), Normal Bowel Sounds: (All Quadrants), Denies Tenderness: (All Quadrants), No Splenomegaly: (All Quadrants), No Hepatomegaly: (All Quadrants), No Guarding: (All Quadrants), No Rebound: (All Quadrants), No Palpable Pulse: (All Quadrants), No Palpabale Mass: (All Quadrants), No Distention: (All Quadrants), No Rigidity: (All Quadrants) - Skin Skin: REPORTS: Intact, Normal For Race, Warm, Dry, No Rash - Extremities Extremity: Non-Tender: (All Extremities), Normal ROM: (All Extremities), Normal Inspection: (All Extremities) - Neurological / Psychological Neurological: POSITIVE: Affect Apporpriate, Oriented X3, spring winder Normal As Tested, Motor Normal, Sensation Normal Dyspnea Progress - Results Reviewed by me Xrays/CTs/US Reviewed by me: Yes Discussed with Radiologist: Yes Radiology Findings: Chest x-ray shows "no definite pneumonia; 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 " Lab Results Reviewed by Me: Yes CBC and BMP: 03/30/18 14:35 02/12/19 14:35 Lab Results:: Laboratory Results 03/30/18 03/30/18 03/30/18 14:34 14:35 14:35 WBC 9.13 RBC 3.87 L Hgb 13.4 L Hct 39.8 L MCV 102.8 H MCH 34.6 H MCHC 33.7 RDW Std Deviation 50.2 H RDW Coeff of Gabriella 13.7 Plt Count 192 MPV 10.8 Immature Gran % (Auto) 0.2 Neut % (Auto) 58.2 Lymph % (Auto) 24.3 Lamb % (Auto) 13.9 Eos % (Auto) 3.1 Baso % (Auto) 0.3 Immature Gran # (Auto) 0.02 Neut # (Auto) 5.31 Lymph # (Auto) 2.22 Lamb # (Auto) 1.27 H Eos # (Auto) 0.28 Baso # (Auto) 0.03 WBC Morphology Comment Normal morphology Plt Morphology Comment Normal morphology RBC Morph Comment Normal morphology PT 10.0 INR 0.98 D-Dimer 0.58 VBG pH 7.36 VBG pCO2 41 L VBG HCO3 23 VBG Base Excess -2 Sodium Potassium Chloride Carbon Dioxide Anion Gap BUN Creatinine BUN/Creatinine Ratio Glucose Calculated Osmolality Lactic Acid Calcium Total Bilirubin AST ALT Alkaline Phosphatase CK-MB (CK-2) Troponin I NT-Pro-B Natriuret Pep Total Protein Albumin Globulin Albumin/Globulin Ratio 03/30/18 03/30/18 03/30/18 14:35 14:35 14:35 WBC RBC Hgb Hct MCV MCH MCHC RDW Std Deviation RDW Coeff of Gabriella Plt Count MPV Immature Gran % (Auto) Neut % (Auto) Lymph % (Auto) Lamb % (Auto) Eos % (Auto) Baso % (Auto) Immature Gran # (Auto) Neut # (Auto) Lymph # (Auto) Lamb # (Auto) Eos # (Auto) Baso # (Auto) WBC Morphology Comment Plt Morphology Comment RBC Morph Comment PT INR D-Dimer VBG pH VBG pCO2 VBG HCO3 VBG Base Excess Sodium 136 Potassium 4.4 Chloride 102 Carbon Dioxide 27 Anion Gap 7 BUN 13 Creatinine 0.7 BUN/Creatinine Ratio 18.57 Glucose 97 Calculated Osmolality 281.0 Lactic Acid 0.8 Calcium 9.2 Total Bilirubin 0.4 AST 21 ALT 17 L Alkaline Phosphatase 65 CK-MB (CK-2) 1.92 Troponin I < 0.012 NT-Pro-B Natriuret Pep 799 H Total Protein 6.9 Albumin 4.0 Globulin 2.9 Albumin/Globulin Ratio 1.30 EKG Interpreted/Reviewed By Me:: Yes (atrial fibrillation with controlled ventricular response) EKG Interpretation:: POSITIVE: Normal Rate, Normal Intervals, Normal QRS, Normal ST/T, Abnormal EKG (Atrial fibrillation with controlled ventricular response). NEGATIVE: Normal Sinus Rhythm, Normal Bath - Patient's Progress Pain Medication Addressed: POSITIVE: Not Applicable School/Work Release Addressed: POSITIVE: Not Applicable Re-Examine Time: 16:50 Re-Examine Comment: Patient given a DuoNeb nebulizer treatment with some clearing of his wheezing. Patient then given a Xopenex nebulizer treatment and his lungs sound much better. Patient states he coughed up considerable sputum w ith each of these treatments. Status: POSITIVE: Improved, Re-Examined Air Movement: POSITIVE: Fair - Consult Consult (If Yes, Name of Consulting MD & Time Called): Yes (Dr. Wood, hospitalist, [id number]) Consulting MD will see pt:: POSITIVE: [facility] [place] Admit Counseled: POSITIVE: Patient, Family (Son), RE: Lab Results, RE: Radiology Results, RE: DX, RE: Need for F/U Patient Care Time - Estimated PCT Patient Care Time (In Minutes): 60 Vital Signs - Recent Vital Signs Vital Signs: Vital Signs (Last 8 hours) Temp Pulse Pulse Resp BP BP Pulse Ox 03/30/18 17:28 97.1 F 69 24 133/70 95 03/30/18 17:22 20 03/30/18 16:31 107 H 18 100 03/30/18 16:30 98 18 94 03/30/18 15:17 63 16 97 03/30/18 14:40 97.1 F 67 36 H 135/74 93 - VS Reviewed Vital Signs Reviewed: Yes Discharge Clinical Impression: COPD with hypoxia, COPD exacerbation Discharge Disposition: Admit to Inpatient Condition: Stable Date Decision to Admit to Inpatient: 03/30/18 Time Decision to Admit to Inpatient: 17:00
[2018-03-30] MEDS: Apixaban 5 MG TABLET PO SCH (20:26)
[2018-03-30] MEDS: GABAPENTIN 300 MG CAPSULE PO SCH (20:26)
[2018-03-30] MEDS: Oxybutynin ER Tab 5 MG TAB PO SCH (20:26)
[2018-03-30] MEDS: Senna/Docusate Tab 1 TAB TAB PO SCH (20:26)
[2018-03-30] MEDS: Metoprolol TARTRATE Tab 25 MG TAB PO SCH (20:26)
[2018-03-30] MEDS: ATORVASTATIN 40 MG TABLET PO SCH (20:26)
[2018-03-30] MEDS: TAMSULOSIN 0.4 MG CAPSULE PO SCH (20:26)
[2018-03-30] MEDS ORDERED: Montelukast Tab 10 MG TAB PO SCH (21:00)
[2018-03-31] MEDS: ALBUTEROL SULFATE 2.5 MG/3 ML NEB PRN ×2 (02:40→15:56)
[2018-03-31 05:09] LABS: BASOPHILS # (AUTO) 0.02 10*3/UL; BASOPHILS % (AUTO) 0.3 % (0-1); EOSINOPHILS % (AUTO) 2.7 % (0-8); Hematocrit [HCT] 38.5 % (42.0-52.0); Hemoglobin [HGB] 12.8 g/dL (14.0-18.0); MEAN CORPUSCULAR HGB CONC 33.2 g/dL (33-37); MEAN CORPUSCULAR VOLUME 102.1 FL (80-90); MONOCYTES # (AUTO) 0.87 10*3/UL (0.3-0.8); MONOCYTES % (AUTO) 11.9 % (5-15); NEUTROPHILS % (AUTO) 60.3 % (50-80); RED BLOOD COUNT 3.77 10^6/uL (4.70-6.10)
[2018-03-31 05:15] LABS: PLATELET MORPHOLOGY COMMENT NORMAL MORPHOLOGY (NORM); RBC MORPHOLOGY COMMENT NORMAL MORPHOLOGY (NORM); WBC MORPHOLOGY COMMENT NORMAL MORPHOLOGY (NORM)
[2018-03-31 05:22] LABS: BLOOD UREA NITROGEN 12 mg/dL (7-22)
[2018-03-31] MEDS ORDERED: LEVOTHYROXINE 25 MCG TABLET PO SCH (05:30)
[2018-03-31] MEDS: IPRATROPIUM/ALBUTEROL SULFATE 3 ML NEB NEB SCH ×2 (07:32→11:43)
--- NOTE | 2018-03-31 07:46 | DI ---
CT Chest WO Contrast,03/31/2018 7:00 AM: Clinical History: COPD. Previous Exam: February 24, 2017 Findings: Multiple helically acquired CT images are obtained through the chest without contrast, and demonstrat es subsegmental atelectasis in the lung bases. There is diffuse COPD. There is no infiltrate nor effu margie. The thyroid is normal. A few peripheral vascular calcifications are seen. Diffuse degenerative changes of the thoracic spine are noted with endplate osteophyte formation. There is some mild irregular contour of the liver. The gallbladder is normal. Multiple bilateral simp le renal cysts are identified. Coronary artery calcifications are seen. Impression: 1. Diffuse COPD. 2. No increasing fibrosis since the prior exam. 3. Airspace disease within the lung bases most consistent with atelectasis. Cannot rule out the possi bility of an early pneumonia.
[2018-03-31] MEDS: predniSONE Tab 20 MG TAB PO SCH (09:24)
[2018-03-31] MEDS: FOLIC ACID 1 MG TABLET PO SCH (09:24)
[2018-03-31] MEDS: Metoprolol TARTRATE Tab 25 MG TAB PO SCH ×2 (09:24→21:16)
[2018-03-31] MEDS: PANTOPRAZOLE 40 MG TABLET PO SCH (09:24)
[2018-03-31] MEDS: Oxybutynin ER Tab 5 MG TAB PO SCH ×3 (09:25→21:18)
[2018-03-31] MEDS: Sertraline Tab 50 MG TAB PO SCH (09:25)
[2018-03-31] MEDS: AZITHROMYCIN 250 MG TABLET PO SCH (09:25)
[2018-03-31] MEDS: GABAPENTIN 300 MG CAPSULE PO SCH ×2 (09:25→21:17)
[2018-03-31] MEDS: Apixaban 5 MG TABLET PO SCH ×2 (09:26→21:17)
[2018-03-31] MEDS: ACIDOPHILUS/BULGARICUS CHEWABLE TABLET PO SCH (09:26)
--- NOTE | 2018-03-31 12:55 | PDOC(PROG) ---
Date of Service: 03/31/18 Time of Service: 12:55 Interval History: No chest pain, shortness breath is improved, no nausea or vomiting. Phlegm is still present. Objective : Data - Labs CBC and BMP: 03/31/18 04:10 03/31/18 04:10 - Imaging CT Scan Status: Image Reviewed by Me (I looked at the CT scan of the chest. Severe emphysema. Has a lot of densities in the lower bases that could be consistent with fibrosis) Objective : Exam - General General Appearance: No Acute Distress, Cooperative Additional General Exam Details: Vital Signs - Last Taken Temperature 97.4 F 03/31/18 12:33 Pulse Rate 70 03/31/18 12:33 Respiratory Rate 20 03/31/18 12:33 Blood Pressure 125/57 03/31/18 12:33 Pulse Ox 91 03/31/18 12:33 - Eye Eye Exam: No Scleral Icterus - ENT ENT Exam: Mucous Membranes Moist - Neck Neck Exam: JVP is not Raised - Respiratory Respiratory Exam: Breathing Non Labored, Wheezes, Coarse Breath Sounds - Cardiovascular Cardiovascular Exam: RRR, No Murmur, No Clicks, No Gallops, No Rubs, No JVD - GI/Abdominal GI/Abdominal Exam: Normal Bowel Sounds, Non Tender, Non Distended, Soft - Extremities Extremities Exam: No Edema Present, No Cyanosis Present, Clubbing Present - Neurological Neurological Exam: Alert, Oriented x 3, No Facial Droop, Speech Intact / Clear, Moves All Extremities Equally Assessment and Plan - Patient Problems (1) COPD exacerbation Current Visit: Yes Status: Acute Code(s): J44.1 - Chronic obstructive pulmonary disease with (acute) exacerbation (2) Pulmonary fibrosis Current Visit: Yes Status: Acute Code(s): J84.10 - Pulmonary fibrosis, unspecified (3) Benign hypertension Current Visit: Yes Status: Acute (4) Chronic low back pain Current Visit: Yes Status: Chronic Code(s): M54.5 - Low back pain; G89.29 - Other chronic pain Qualifiers: Back pain laterality: bilateral Sciatica presence: without sciatica Qualified Code(s): M54.5 - Low back pain; G89.29 - Other chronic pain (5) Coronary artery disease Current Visit: Yes Status: Chronic Code(s): I25.10 - Atherosclerotic heart disease of squ[place] coronary artery without angina pectoris Qualifiers: Coronary Disease-Associated Artery/Lesion type: [place] artery [place] vs. transplanted heart: [place] heart Associated angina: without angina Qualified Code(s): I25.10 - Atherosclerotic heart disease of [place] coronary artery without angina pectoris (6) Gastroesophageal reflux disease Current Visit: Yes Status: None Qualifiers: Esophagitis presence: esophagitis presence not specified Qualified Code(s): K21.9 - Gastro-esophageal reflux disease without esophagitis (7) Hypothyroidism Current Visit: Yes Status: Chronic Code(s): E03.9 - Hypothyroidism, unspecified Qualifiers: Hypothyroidism type: acquired Qualified Code(s): E03.9 - Hypothyroidism, unspecified (8) Peripheral neuropathy, idiopathic Current Visit: Yes Status: Chronic Code(s): G60.9 - Hereditary and idiop athic neuropathy, unspecified (9) Tobacco abuse Current Visit: Yes Status: Chronic Code(s): Z72.0 - Tobacco use (10) Deviated nasal septum Current Visit: Yes Status: Acute Code(s): J34.2 - Deviated nasal septum - Assessment / Plan Additional Assessment/Plan Details: There is no expansion or worsening of the pulmonary fibrosis. Continue Zithromax and steroids. This is still the patient's second infection to 3rd infection in the last 6 months, including one in September, 1 in January, and this particular episode. I was able to review the records from [facility] from earlier this month, and he was admitted for chest pain admission and had multiple imaging studies. Interestingly was noted that he had a spiculated mass on the CT of the chest there, but today's study did not come back with that same spiculated mass. He was not treated for COPD exacerbation on that admission. The patient would benefit from LAMA-LABA therapy. We'll switch to Spiriva/Brovana today. If we can convince the patient to be compliant with albuterol therapy and n ebulizer at home, I think that would be a good thing. Try to arrange for a good nebulizer and supplies at home. I expect that the patient would probably be here another day or 2 prior to discharge. At this point with a normal TSH and normal free T4, I'm going to stop the low- dose Synthroid and perhaps the patient can get TSH and free T4 drawn in 6 weeks. I discussed the CT scan results with the patient and with his daughter.
[2018-03-31] MEDS ORDERED: ALBUTEROL SULFATE 2.5 MG/3 ML NEB SCH (19:00)
[2018-03-31] MEDS: ARFORMOTEROL NEB SOLN 15 MCG/2 ML NEB SCH (19:10)
[2018-03-31] MEDS: ALBUTEROL SULFATE 2.5 MG/3 ML NEB SCH (19:10)
[2018-03-31] MEDS: Senna/Docusate Tab 1 TAB TAB PO SCH (21:17)
[2018-03-31] MEDS: TAMSULOSIN 0.4 MG CAPSULE PO SCH (21:17)
[2018-03-31] MEDS: ATORVASTATIN 40 MG TABLET PO SCH (21:18)
[2018-04-01] MEDS: ALBUTEROL SULFATE 2.5 MG/3 ML NEB SCH ×2 (06:25→10:54)
[2018-04-01] MEDS: ARFORMOTEROL NEB SOLN 15 MCG/2 ML NEB SCH (06:29)
[2018-04-01] MEDS ORDERED: TIOTROPIUM BROMIDE 18 MCG CAPSULE INH SCH (07:00)
[2018-04-01] MEDS: predniSONE Tab 20 MG TAB PO SCH (08:12)
[2018-04-01] MEDS: GABAPENTIN 300 MG CAPSULE PO SCH (08:12)
[2018-04-01] MEDS: Sertraline Tab 50 MG TAB PO SCH (08:12)
[2018-04-01] MEDS: PANTOPRAZOLE 40 MG TABLET PO SCH (08:12)
[2018-04-01] MEDS: AZITHROMYCIN 250 MG TABLET PO SCH (08:12)
[2018-04-01] MEDS: Apixaban 5 MG TABLET PO SCH (08:13)
[2018-04-01] MEDS: ACIDOPHILUS/BULGARICUS CHEWABLE TABLET PO SCH (08:13)
[2018-04-01] MEDS: FOLIC ACID 1 MG TABLET PO SCH (08:13)
[2018-04-01] MEDS: Oxybutynin ER Tab 5 MG TAB PO SCH (08:13)
[2018-04-01] MEDS: Metoprolol TARTRATE Tab 25 MG TAB PO SCH (08:13)
[2018-04-01 12:52] VITALS: BP 140/84; RESP 22; TEMP 96.8; O2SAT 94
--- NOTE | 2018-04-01 13:22 | DCSUMMARY ---
Hospitalization Summary Admit Date: 03/30/2018 Discharge Date: 04/01/18 Primary Diagnosis:: COPD exacerbation Hospital Course: This very pleasant 83-year-old male with severe end-stage lung disease, end- stage COPD, accompanied with pulmonary fibrosis and probable bronchiectasis. He came in with acute shortness of breath. He was admitted, he admitted that he was not taking his inhalers and maybe did 3 breathing treatments a month. The patient continues to smoke as well. I was concerned about pulmonary fibrosis worsening, but CT scan showed no progression of the pulmonary fibrosis from last year. I think that if the patient would like to see a lung specialist he could but I will defer that to his primary physician. That being said, as he's had 2 infections in the last few months, I think it would be worthwhile to go ahead and place him on daily antibiotic to try and prevent any further exacerbations. I also think he would benefit from LAMA-LABA therapy. I prescribed Brovana and Spiriva. However, the patient is on limited income and I told the patient and his daughter that if he had to choose between medications, continue albuterol on a when necessary basis but to take the treatments at least 3 times a day while awake. I strongly advised patient to quit smoking. I explained the above to the patient's daughter, [place], and she agreed with the plan as well. Today, he denies any shortness breath, denies any chest pain, denies any nausea or vomiting and he would like to go home. Assessment and Plan: 1. As per discharge assessments noted 2. Disposition: Patient is discharged home. 3. Condition on discharge, stable and improved. 4. Diet: regular diet 5. Activities: resume normal activities 6. Follow-Up: 1. Dr. Carney in 1 week 2. 7. Medications at the Time of Discharge: Home Medications Medication Instructions Recorded Confirmed Type Diaper,Brief,Adult, Disposable 1 ea TOPICAL QID #160 ea 11/14/15 03/30/18 Rx [Depend] Walker [Ultra-Light Rollator] 1 ea MC ONCE #1 ea 12/11/15 03/30/18 Rx folic acid 1 mg tablet 1 mg PO QDAY #30 tab 12/22/17 03/30/18 Rx hydrocortisone 2.5 % topical cream 1 applic TOPICAL BID PRN #120 g 12/29/17 03/30/18 Rx atorvastatin 40 mg tablet 40 mg PO QDAY #30 tab 01/18/18 03/30/18 Rx apixaban 5 mg tablet 5 mg PO BID #60 tab 01/22/18 03/30/18 Rx metoprolol tartrate 25 mg tablet 12.5 mg PO BID #30 tab 01/22/18 03/30/18 Rx oxybutynin chloride 5 mg tablet 5 mg PO TID #90 tab 02/01/18 03/30/18 Rx hydrocodone 10 mg-acetaminophen 1 tab PO Q4-6H PRN #120 tab 03/09/18 03/30/18 Rx 325 mg tablet levothyroxine 25 mcg tablet 25 mcg PO QDAY #30 tab 03/10/18 03/30/18 Rx sertraline 50 mg tablet 50 mg PO DAILY #30 tab 03/15/18 03/30/18 Rx tamsulosin 0.4 mg capsule 0.4 mg PO QDAY #30 cap 03/29/18 03/30/18 Rx Gabapentin 300 mg PO BID 03/30/18 03/30/18 History L. Acidophilus/L.bulgaricus 1 tab PO DAILY 03/30/18 03/30/18 History [Lactobacillus Tablet] Pantoprazole Sodium [Protonix] 40 mg PO DAILY 03/30/18 03/30/18 History Sennosides/Docusate Sodium 2 tab PO BEDTIME 03/30/18 03/30/18 History [Senokot-S Tablet] Albuterol Neb Soln 0.083% 2.5 mg NEB RTQID #120 vial.neb 04/01/18 Rx Arformoterol Neb Soln [Brovana Neb 15 mcg NEB RTBID #60 vial.[facility] 04/01/18 Rx Soln] Azithromycin [Zithromax] 250 mg PO DAILY #30 tab 04/01/18 Rx Azithromycin [Zithromax] 250 mg PO Q24H #2 tab 04/01/18 Rx Tiotropium Inhalation Cap 18 mcg INH RTDAILY #1 inhaler 04/01/18 Rx [Spiriva Inhalation Cap] predniSONE Tab [Deltasone Tab] 40 mg PO DAILY #4 tab 04/01/18 Rx I stopped Singulair. 8. Time, care, counseling and coordination of care for this discharge is greater than 30 minutes. Exam - Vitals Vital Signs: Vital Signs Temperature 96.8 F Temperature Source Temporal Artery Scan Pulse Rate [Pulse Oximeter 61 Right] Pulse Rate 55 Respiratory Rate 22 Blood Pressure [Left Arm] 140/84 Blood Pressure 133/70 Pulse Ox 94 Oxygen Flow Rate 4 Oxygen Delivery Method Nasal Cannula Height 5 ft 6 in Weight 210 lb 6.4 oz - General General Appearance: No Acute Distress, Cooperative - Eye Eye Exam: POSITIVE: No Scleral Icterus - ENT ENT Exam: POSITIVE: Mucous Membranes Moist - Respiratory Respiratory Exam: POSITIVE: Breathing Non Labored, Wheezes, Coarse Breath Sounds - Cardiovascular Cardiovascular Exam: POSITIVE: RRR, No Murmur, No Clicks, No Gallops, No Rubs, No JVD - GI/Abdominal GI/Abdominal Exam: POSITIVE: Normal Bowel Sounds, Non Tender, Non Distended, S oft - Extremities Extremities Exam: POSITIVE: No Edema Present, No Cyanosis Present, Clubbing Present - Neurological Neurological Exam: POSITIVE: Alert, Oriented x 3, No Facial Droop, Speech Intact / Clear, Moves All Extremities Equally Data Peritnent Studies: 03/30/18 03/30/18 03/30/18 14:34 14:35 14:35 WBC Hgb Hct Plt Count VBG pH 7.36 VBG pCO2 41 L VBG HCO3 23 VBG Base Excess -2 Sodium Potassium Chloride Carbon Dioxide Anion Gap BUN Creatinine BUN/Creatinine Ratio Glucose Calculated Osmolality Calcium Total Bilirubin 0.4 AST 21 ALT 17 L Alkaline Phosphatase 65 CK-MB (CK-2) 1.92 Troponin I < 0.012 NT-Pro-B Natriuret Pep 799 H Total Protein 6.9 Albumin 4.0 Globulin 2.9 Albumin/Globulin Ratio 1.30 TSH Free T4 03/31/18 03/31/18 03/31/18 04:10 04:10 04:10 WBC 7.30 Hgb 12.8 L Hct 38.5 L Plt Count 194 VBG pH VBG pCO2 VBG HCO3 VBG Base Excess Sodium 137 Potassium 4.2 Chloride 103 Carbon Dioxide 24 Anion Gap 10 BUN 12 Creatinine 0.6 L BUN/Creatinine Ratio 20.00 Glucose 109 Calculated Osmolality 284.0 Calcium 9.1 Total Bilirubin AST ALT Alkaline Phosphatase CK-MB (CK-2) Troponin I NT-Pro-B Natriuret Pep Total Protein Albumin Globulin Albumin/Globulin Ratio TSH 1.98 Free T4 0.94 Procedures: [address] [facility]. [facility] [place] [id number] PH: DD: [phone] FAX: [phone] ~DIAGNOSTIC IMAGING REPORT~ Patient: Vitaliy Mao : 1935 Sex: M Age: 83 Exam Name: CT Chest WO Contrast Exam Date: 03/31/18 Report # : [id number] CPT Code: 28236 EMR/MR #: [id number] Ordering: DENA RICHARD Admiting: DENA RICHARD DO Primary: Thien Boo MD Attending: DENA RICHARD DO Signed CT Chest WO Contrast,03/31/2018 7:00 AM: Clinical History: COPD. Previous Exam: February 24, 2017 Findings: Multiple helically acquired CT images are obtained through the chest without contrast, and demonstrates subsegmental atelectasis in the lung bases. There is diffuse COPD. There is no infiltrate nor effusion. The thyroid is normal. A few peripheral vascular calcifications are seen. Diffuse degenerative changes of the thoracic spine are noted with endplate osteophyte formation. There is some mild irregular contour of the liver. The gallbladder is normal. Multiple bilateral simple renal cysts are identified. Coronary artery calcifications are seen. Impression: 1. Diffuse COPD. 2. No increasing fibrosis since the prior exam. 3. Airspace disease within the lung bases most consistent with atelectasis. Cannot rule out the possibility of an early pneumonia. Dictated By: 03/31/18 0739 JED MCKEE MD. Signed By: 03/31/18 0746 JED MCKEE MD. Patient Problems - Patient Problem List (1) COPD exacerbation Current Visit: Yes Status: Acute Code(s): J44.1 - Chronic obstructive pulmonary disease with (acute) exacerbation Category: Medical (2) Pulmonary fibrosis Current Visit: Yes Status: Acute Code(s): J84.10 - Pulmonary fibrosis, unspecified Category: Medical (3) Benign hypertension Current Visit: Yes Status: Acute Category: Medical (4) Chronic low back pain Current Visit: Yes Status: Chronic Code(s): M54.5 - Low back pain; G89.29 - Other chronic pain Qualifiers: Back pain laterality: bilateral Sciatica presence: without sciatica Qualified Code(s): M54.5 - Low back pain; G89.29 - Other chronic pain Category: Medical (5) Coronary artery disease Current Visit: Yes Status: Chronic Code(s): I25.10 - Atherosclerotic heart disease of [place] coronary artery without angina pectoris Qualifiers: Coronary Disease-Associated Artery/Lesion type: [place] artery [place] vs. transplanted heart: [place] heart Associated angina: without angina Qualified Code(s): I25.10 - Atherosclerotic heart disease of [place] coronary artery without angina pectoris Category: Medical (6) Gastroesophageal reflux disease Current Visit: Yes Status: None Qualifiers: Esophagitis presence: esophagitis presence not specified Qualified Code(s): K21.9 - Gastro-esophageal reflux disease without esophagitis Category: Medical (7) Hypothyroidism Current Visit: Yes Status: Chronic Comment: Continue Synthroid Code(s): E03.9 - Hypothyroidism, unspecified Qualifiers: Hypothyroidism type: acquired Qualified Code(s): E03.9 - Hypothyroidism, unspecified Category: Medical (8) Peripheral neuropathy, idiopathic Current Visit: Yes Status: Chronic Comment: Continue gabapentin Code(s): G60.9 - Hereditary and idiopathic neuropathy, unspecified Category: Medical (9) Tobacco abuse Current Visit: Yes Status: Chronic Code(s): Z72.0 - Tobacco use Category: Medical (10) Deviated nasal septum Current Visit: Yes Status: Acute Code(s): J34.2 - Deviated nasal septum Category: Medical
== END 2018-04-01 14:25 | disposition home or self-care (01) | DRG 192 ==
LOC: ER 14:20 → MED/SURG 17:01
PROVIDERS: ADMIT Family Medicine; ATTEND Family Medicine

== ENCOUNTER 2018-04-07 11:20 | Inpatient (IN) ==
[2018-04-07] MEDS ORDERED: IPRATROPIUM/ALBUTEROL SULFATE 3 ML NEB NEB ONE ×2 (11:29→11:34)
[2018-04-07] MEDS ORDERED: Sodium Chloride 0.9% 1,000 ML PRIMARY IV ONE (11:34)
[2018-04-07] MEDS ORDERED: KETOROLAC 15 MG/1 ML VIAL IVP ONE (11:34)
[2018-04-07] MEDS ORDERED: NITROGLYCERIN 0.4 MG SL TAB (BOTTLE OF 3) SL ONE (11:34)
[2018-04-07] MEDS ORDERED: ONDANSETRON 4 MG/2 ML VIAL IVP ONE (11:34)
--- NOTE | 2018-04-07 11:38 | EKG ---
[address] [place] [address] Measurements Intervals [place] Rate: 98 P: 71 OR: 167 QRS: -21 QRSD: 104 T: 30 QT: 365 QTc: 421 Interpretive Statements SINUS RHYTHM WITH FREQUENT SUPRAVENTRICULAR PREMATURE COMPLEXES BORDERLINE LEFT AXIS DEVIATION [QRS AXIS < -20] LOW QRS VOLTAGE IN EXTREMITY LEADS [QRS DEFLECTION < 0.5 mV IN LIMB LEADS] ABNORMAL RHYTHM ECG INTERPRETATION BASED ON A DEFAULT AGE OF 40 YEARS Compared to ECG 03/30/2018 14:52:41 Sinus arrhythmia no longer present Electronically Signed On 04-07-18 11:52:19 MST by Cristopher Oscar MD [email or web address]
--- NOTE | 2018-04-07 11:39 | PDOC ---
Chest Pain HPI - General Chief Complaint: Chest Pain Stated Complaint: CHEST PAIN, DIZZINESS Date Seen by Provider: 04/07/18 Time Seen by Provider: 11:25 Source: Patient, EMS Exam Limitations: POSITIVE: Clinical condition Treatment Prior to Arrival: REPORTS: Nitroglycerin Nurse's Notes Reviewed & Considered: Yes - History of Present Illness Initial Comments: This is a well-developed, well-nourished, 83-year-old male, complaining of chest pain, shortness of breath, and anxiety. Patient's symptoms began yesterday and of escalated today. He denies any fever chills or sweats, no headache, no rhinorrhea, no sore throat, no nausea vomiting or diarrhea, no rashes. No hematuria or dysuria. Body Location Affected: REPORTS: Chest Timing: REPORTS: Abrupt Duration: <24 hours Severity: Severe Context: REPORTS: Rest Quality: REPORTS: "Pain" Radiation: REPORTS: None Associated Symptoms: REPORTS: Shortness of Breath Modifying Factors: improves with: None Reported Similar Symptoms Previously: No Recently seen/treated/hospitalized: No Any Prior Injuries Related to Current Complaint?: No - Patient Home Medications Home Medications: Home Medications Diaper,Brief,Adult, Disposable [Depend] 1 ea TOPICAL QID #160 ea 11/14/15 Walker [Ultra-Light Rollator] 1 ea MC ONCE #1 ea 12/11/15 folic acid 1 mg tablet 1 mg PO QDAY #30 tab 12/22/17 hydrocortisone 2.5 % topical cream 1 applic TOPICAL BID PRN #120 g 12/29/17 atorvastatin 40 mg tablet 40 mg PO QDAY #30 tab 01/18/18 apixaban 5 mg tablet 5 mg PO BID #60 tab 01/22/18 metoprolol tartrate 25 mg tablet 12.5 mg PO BID #30 tab 01/22/18 oxybutynin chloride 5 mg tablet 5 mg PO TID #90 tab 02/01/18 sertraline 50 mg tablet 50 mg PO DAILY #30 tab 03/15/18 tamsulosin 0.4 mg capsule 0.4 mg PO QDAY #30 cap 03/29/18 Gabapentin 300 mg PO BID 03/30/18 L. Acidophilus/L.bulgaricus [Lactobacillus Tablet] 1 tab PO DAILY 03/30/18 Pantoprazole Sodium [Protonix] 40 mg PO DAILY 03/30/18 Sennosides/Docusate Sodium [Senokot-S Tablet] 2 tab PO BEDTIME 03/30/18 Albuterol Neb Soln 0.083% 2.5 mg NEB RTQID #120 vial.neb 04/01/18 Arformoterol Neb Soln [Brovana Neb Soln] 15 mcg NEB RTBID #60 vial.neb 04/01/18 Azithromycin [Zithromax] 250 mg PO Q24H #2 tab 04/01/18 Tiotropium Inhalation Cap [Spiriva Inhalation Cap] 18 mcg INHALATION RTDAILY #1 inhaler 04/01/18 predniSONE Tab [Deltasone Tab] 40 mg PO DAILY #4 tab 04/01/18 hydrocodone 10 mg-acetaminophen 325 mg tablet 1 tab PO Q4-6H PRN #120 tab 04/06/18 levothyroxine 25 mcg tablet 25 mcg PO QDAY #30 tab 04/06/18 - Patient Allergies Allergies/Adverse Reactions: Allergies Allergy/AdvReac Type Severity Reaction Status Date / Time codeine Allergy Severe RASH Verified 04/07/18 12:30 Penicillins Allergy RASH Verified 04/07/18 12:30 aspirin AdvReac Intermediate DYSPHORIA Verified 04/07/18 12:30 contrast dye Allergy Anaphylaxis Uncoded 04/07/18 12:30 Past Medical History - heen HEENT History: Glaucoma, Hard of Hearing, Dentures/Partials Additional HEENT History: Full top and bottom Cardiovascular History: Arrhythmia, Other (please comment) Additional Cardiovasular History: irregular, CARDIAC CATHETERIZATION WITH STENT PLACEMENT Respiratory History: COPD, Shortness of Breath, Pneumonia, Home Oxygen Use Gastrointestinal History: GERD Genitourinary History: Recurrent UTI, Other (please comment) Additional Genitourinary History: prostrate cancer, kidney stents Endocrine History: Denies History Musculoskeletal History: Arthritis, Back Pain, Other (please comment) Prosthesis or Implant: No Additional Musculoskeletal History: pain left hip, patient stated he has bulging disks in his back Neurological History: TIA Blood Disorders: Denies History Psychiatric History: Denies History History of Sexually Transmitted Diseases: No Cancer History: Other (please comment) Cancer Treatment / Date(s) of Treatment: SEED IMPLANT History of MDRO: No History of Other Communicable Diseases: No Alcohol Use: Occasionally In the Past 12 Months, Have Used or Abuse Any Substance: None Previous Surgical History: Yes Type / Date of Surgery: Ankle surgery 1966,CA treatment 1986, MADELEINE TKA. URETERAL STENT Anesthesia Reactions: No Malignant Hyperthermia: No Significant Family History: Diabetes, Hypertension ROS - Limitations ROS Limitations: Clinical Condition (Patient is short of breath and having difficulty speaking in full sentences. Further review of systems is unavailable.) Chest Pain PE - General Appearance General Appearance: REPORTS: Alert, Cooperative, No Evidence of Trauma, Moderate Distress - HEENT HEENT: POSITIVE: Head Inspection Nml, Eyes Inspection Nml, Ears Inspection Nml, Nose Inspection Nml, Oral/Dental Inspect. Nml, Pharynx Inspect. Nml, PERRL, EOMI - Neck Neck: REPORTS: Normal Inspection - Respiratory Respiratory: REPORTS: Chest Non-Tender, Rales, Rhonchi, Respiratory Distress, Distinct Pain on Movement, Decreased Air Movement - Cardiovascular Cardiovascular: REPORTS: Regular Rate and Rhythm, Heart Sounds Normal, Strong Pulses, No Murmur, No Gallop, No Friction Rub, No JVD Peripheral Pulses: Radial (L): 4+ - Abdomen Abdomen: Soft: (All Quadrants), Normal Bowel Sounds: (All Quadrants), Denies [place]: (All Quadrants), No Splenomegaly: (All Quadrants), No Hepatomegaly: (All Quadrants), No Guarding: (All Quadrants), No Rebound: (All Quadrants), No Palpable Pulse: (All Quadrants), No Palpabale Mass: (All Quadrants), No Distention: (All Quadrants), No Rigidity: (All Quadrants) - Skin Skin: REPORTS: Intact, Normal For Race, Warm, Dry, No Rash - Extremities Extremity: Non-Tender: (All Extremities), Normal ROM: (All Extremities), Normal Inspection: (All Extremities), Pelvis Stable: (All Extremities) - Neurological / Psychological Neurological: POSITIVE: Affect Apporpriate, Oriented X3, Motor Normal, Sensation Normal Chest Pain Progress - Results Reviewed by me Xrays/CTs/US Reviewed by me: Yes Discussed with Radiologist: Yes Lab Results Reviewed by Me: Yes CBC and BMP: 04/07/18 11:32 04/07/18 11:30 Lab Results:: Laboratory Results 04/07/18 04/07/18 04/07/18 11:30 11:30 11:30 WBC RBC Hgb Hct MCV MCH MCHC RDW Std Deviation RDW Coeff of Gabriella Plt Count MPV Immature Gran % (Auto) Neut % (Auto) Lymph % (Auto) Delta % (Auto) Eos % (Auto) Baso % (Auto) Immature Gran # (Auto) Neut # (Auto) Lymph # (Auto) Delta # (Auto) Eos # (Auto) Baso # (Auto) WBC Morphology Comment Plt Morphology Comment RBC Morph Comment PT 10.7 INR 1.05 D-Dimer Sodium 140 Potassium 4.2 Chloride 103 Carbon Dioxide 26 Anion Gap 11 BUN 16 Creatinine 0.8 BUN/Creatinine Ratio 20.00 Glucose 144 H Calculated Osmolality 293.0 H Lactic Acid 1.7 Calcium 9.2 Magnesium 1.8 Total Bilirubin 0.4 AST 36 ALT 19 L Alkaline Phosphatase 77 CK-MB (CK-2) Troponin I Handheld C-Reactive Protein NT-Pro-B Natriuret Pep Total Protein 6.5 Albumin 3.8 Globulin 2.7 Albumin/Globulin Ratio 1.40 04/07/18 04/07/18 04/07/18 11:30 11:30 11:30 WBC RBC Hgb Hct MCV MCH MCHC RDW Std Deviation RDW Coeff of Gabriella Plt Count MPV Immature Gran % (Auto) Neut % (Auto) Lymph % (Auto) Delta % (Auto) Eos % (Auto) Baso % (Auto) Immature Gran # (Auto) Neut # (Auto) Lymph # (Auto) Delta # (Auto) Eos # (Auto) Baso # (Auto) WBC Morphology Comment Plt Morphology Comment RBC Morph Comment PT INR D-Dimer 0.51 Sodium Potassium Chloride Carbon Dioxide Anion Gap BUN Creatinine BUN/Creatinine Ratio Glucose Calculated Osmolality Lactic Acid Calcium Magnesium Total Bilirubin AST ALT Alkaline Phosphatase CK-MB (CK-2) 1.72 Troponin I Handheld C-Reactive Protein NT-Pro-B Natriuret Pep 572 H Total Protein Albumin Globulin Albumin/Globulin Ratio 04/07/18 04/07/18 04/07/18 11:30 11:30 11:32 WBC 10.01 RBC 3.89 L Hgb 13.3 L Hct 39.6 L MCV 101.8 H MCH 34.2 H MCHC 33.6 RDW Std Deviation 49.4 RDW Coeff of Gabriella 13.5 Plt Count 235 MPV 10.4 Immature Gran % (Auto) 0.4 Neut % (Auto) 61.9 Lymph % (Auto) 24.7 Delta % (Auto) 10.3 Eos % (Auto) 2.3 Baso % (Auto) 0.4 Immature Gran # (Auto) 0.04 Neut # (Auto) 6.20 Lymph # (Auto) 2.47 Delta # (Auto) 1.03 H Eos # (Auto) 0.23 Baso # (Auto) 0.04 WBC Morphology Comment Normal morphology Plt Morphology Comment Normal morphology RBC Morph Comment Normal morphology PT INR D-Dimer Sodium Potassium Chloride Carbon Dioxide Anion Gap BUN Creatinine BUN/Creatinine Ratio Glucose Calculated Osmolality Lactic Acid Calcium Magnesium Total Bilirubin AST ALT Alkaline Phosphatase CK-MB (CK-2) Troponin I Handheld 0.000 C-Reactive Protein 0.5 NT-Pro-B Natriuret Pep Total Protein Albumin Globulin Albumin/Globulin Ratio EKG Interpreted/Reviewed By Me:: Yes (sinus rhythm, 98 bpm, no ST changes.) EKG Interpretation:: POSITIVE: Normal Sinus Rhythm, Normal ST/T - Patient's Progress Pain Medication Addressed: POSITIVE: Yes Re-Examine Time: 13:01 Status: POSITIVE: Improved MDM / ED Course: Patient was evaluated, an IV started, blood drawn and sent to the lab for studies, chest x-ray and EKG were obtained. Findings: CBC shows an anemia with hemoglobin of 13.3 and hematocrit of 39.6. White count and platelets are normal. Coagulation studies show PT of 10.7 and INR 1.05. D-dimer is 0.51. BNP is elevated at 576. CMP shows a glucose of 144 with an AST of 19. CK-MB is 1.72 and troponin is 0.000. EKG, per my interpretation, shows sinus rhythm with a rate of 98 beats a minute and no ST changes. Chest x-ray shows bilateral basilar opacities cannot rule out infection versus atelectasis, there is also a history of fibrosis. Assessment: #1 COPD exacerbation. #2 hypoxia. #3 anemia. Plan: Patient receives DuoNeb, dexamethasone, Toradol, sublingual nitroglycerin, normal saline, Ativan, IV Rocephin and IV azithromycin, and morphine. Patient is being admitted for COPD exacerbation with hypoxia. Quality Measure Initiative: CP/AMI: POSITIVE: EKG Quality Measure Initiative: CAP: POSITIVE: CXR or CT - Consult Consult (If Yes, Name of Consulting MD & Time Called): Yes (Dr. Goel 1300 hrs.) Consulting MD will see pt:: POSITIVE: [facility] [place] Admit Counseled: POSITIVE: Patient, RE: Lab Results, RE: Radiology Results, RE: DX, RE: Need for F/U Patient Care Time - Estimated PCT Patient Care Time (In Minutes): 45 Vital Signs - Recent Vital Signs Vital Signs: Vital Signs (Last 8 hours) Pulse Resp Pulse Ox 04/07/18 11:40 82 20 97 04/07/18 11:28 98 - VS Reviewed Vital Signs Reviewed: Yes Discharge Clinical Impression: COPD exacerbation, Chest wall pain, Anemia, Hypoxia Discharge Disposition: Admit to Inpatient Condition: Stable Follow Up With: LEIF SOLORZANO [Primary Care Provider] - Date Decision to Admit to Inpatient: 04/07/18 Time Decision to Admit to Inpatient: 13:03
[2018-04-07 11:42] LABS: BASOPHILS # (AUTO) 0.04 10*3/UL; BASOPHILS % (AUTO) 0.4 % (0-1); EOSINOPHILS # (AUTO) 0.23 10*3/UL; EOSINOPHILS % (AUTO) 2.3 % (0-8); Hematocrit [HCT] 39.6 % (42.0-52.0); Hemoglobin [HGB] 13.3 g/dL (14.0-18.0); LYMPHOCYTES # (AUTO) 2.47 10*3/uL; MEAN CORPUSCULAR HEMOGLOBIN 34.2 PG (27-31); MEAN CORPUSCULAR HGB CONC 33.6 g/dL (33-37); MEAN CORPUSCULAR VOLUME 101.8 FL (80-90); MEAN PLATELET VOLUME 10.4 FL (7.4-12.2); MONOCYTES # (AUTO) 1.03 10*3/UL (0.3-0.8); MONOCYTES % (AUTO) 10.3 % (5-15); NEUTROPHILS % (AUTO) 61.9 % (50-80); RED BLOOD COUNT 3.89 10^6/uL (4.70-6.10)
[2018-04-07 11:44] LABS: PLATELET MORPHOLOGY COMMENT NORMAL MORPHOLOGY (NORM); RBC MORPHOLOGY COMMENT NORMAL MORPHOLOGY (NORM); WBC MORPHOLOGY COMMENT NORMAL MORPHOLOGY (NORM)
[2018-04-07] MEDS ORDERED: MORPHINE SULFATE 2 MG/1 ML IVP ONE (11:46)
[2018-04-07 11:54] LABS: BLOOD UREA NITROGEN 16 mg/dL (7-22); SERUM ALBUMIN 3.8 g/dL (3.5-4.8)
--- NOTE | 2018-04-07 12:15 | DI ---
XR CXR 1VW 04/07/2018 11:33 AM HISTORY: [facility] [place] [facility] ^Trauma Comparison: CT chest 03/31/2018, and chest x-ray 03/30/2018. Findings: A single portable frontal view of the chest is submitted. Images demonstrate patchy left greater than right lung base opacities. There is no large pneumothorax or pleural effusion. The cardiomediastinal silhouette is within normal limits with atheromatous calc ifications in the arch of the tortuous thoracic aorta. The osseous structures are not significantly c hanged. Impression: 1. There are patchy left greater than right lung base opacities that could represent atelectasis vers us early airspace disease in the correct clinical setting. Upright imaging may provide clarification when able. Repeat imaging 6 weeks following completion of therapy is recommended in order to ensure r esolution.
[2018-04-07] MEDS ORDERED: DEXAMETHASONE PF 10 MG/1 ML VIAL IVP ONE (12:28)
[2018-04-07] MEDS ORDERED: cefTRIAXone Inj 2 GM in Sodium Chloride 0.9% 100 ML IV ONE (12:29)
[2018-04-07] MEDS ORDERED: LORazepam 2 MG/1 ML VIAL IVP ONE (12:30)
[2018-04-07 13:26] LABS: VENOUS PH 7.35 (7.32-7.42)
--- NOTE | 2018-04-07 14:42 | PDOC ---
HPI - History of Present Illness Date of Service: 04/07/18 Time of Service: 17:00 Chief Complaint: Cough sometimes green and sometimes clear according to him, shortness of breath and chest pain started yesterday. History of Present Illness: This is an 83 years old male with medical history significant for history of COPD on oxygen 4 L, history of coronary artery disease with previous stents, history of peripheral neuropathy, history of hypothyroidism and history of prostate cancer with previous seed implant had a recent admission to our h ospital for a COPD exacerbation was discharge on steroid and antibiotics, he did see his primary yesterday apparently was doing okay until last night when he started to have shortness of breath and chest pain which he described to be on the left side he denied radiation elsewhere. The pain he described as being sharp constant. This pain according to him is somewhat different from the pain he had when he ended up with a stent. Because of continuous symptoms he came into the ER. Chest x-ray showed patchy left and right opacities more on the left may represent early pneumonia versus atelectasis. Patient did receive antibiotics, steroid, bronchodilator and nitroglycerin in the ER. He didn't feel that the nitroglycerin helped him. He was admitted for further management. By the time I saw the patient he was feeling better compared to when he came in he denied chest pain, denied shortness of breath. His oxygen needs did come up from 4 L to 6 L. Patient is somewhat a poor historian. Past Medical History Medical History: 1. COPD, 4 L oxygen requirement at home. 2. Tobacco abuse. 3. History of prostate cancer status post seed implants. 4. Hypothyroidism. 5. Osteoarthritis in knees and back. 6. GERD. 7. Peripheral neuropathy, unc lear etiology, on neurontin. 8. Coronary artery disease, apparently status post stents. 9. Severely deviated nasal septum causing nasal obstruction, due to severe COPD, not a surgical candidate. 10. Atrial fibrillation, on Eliquis for stroke prevention. 11. History of exophytic soft tissue mass on the left kidney on CT done at [facility] March 2018. 12. History of ureteral stent Surgical History: 1. Right knee replacement. 2. Left knee surgery. 3. Foot surgery. 4. History of stent placement Pertinent Family History: Significant for heart disease in his mother. Past Social History: Smokes. Denies alcohol use. for over 60 years. 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 Plays the [employer] and a guitar. Has 3 children, but unfortunately he had one son that . Tobacco Use: Current Some Day Smoker Do you dip or chew tobacco: No In the Past 12 Months, Have Used or Abuse Any of the Following Substance: None Medication / Allergies Home Medications: Home Medications Medication Instructions Recorded Confirmed Type Diaper,Brief,Adult, Disposable 1 ea TOPICAL QID #160 ea 11/14/15 04/07/18 Rx [Depend] Walker [Ultra-Light Rollator] 1 ea MC ONCE #1 ea 12/11/15 04/07/18 Rx folic acid 1 mg tablet 1 mg PO QDAY #30 tab 12/22/17 04/07/18 Rx hydrocortisone 2.5 % topical cream 1 applic TOPICAL BID PRN #120 g 12/29/17 04/07/18 Rx atorvastatin 40 mg tablet 40 mg PO QDAY #30 tab 01/18/18 04/07/18 Rx apixaban 5 mg tablet 5 mg PO BID #60 tab 01/22/18 04/07/18 Rx metoprolol tartrate 25 mg tablet 12.5 mg PO BID #30 tab 01/22/18 04/07/18 Rx oxybutynin chloride 5 mg tablet 5 mg PO TID #90 tab 02/01/18 04/07/18 Rx sertraline 50 mg tablet 50 mg PO DAILY #30 tab 03/15/18 04/07/18 Rx tamsulosin 0.4 mg capsule 0.4 mg PO QDAY #30 cap 03/29/18 04/07/18 Rx Gabapentin 300 mg PO BID 03/30/18 04/07/18 History L. Acidophilus/L.bulgaricus 1 tab PO DAILY 03/30/18 04/07/18 History [Lactobacillus Tablet] Pantoprazole Sodium [Protonix] 40 mg PO DAILY 03/30/18 04/07/18 History Sennosides/Docusate Sodium 2 tab PO BEDTIME 03/30/18 04/07/18 History [Senokot-S Tablet] Albuterol Neb Soln 0.083% 2.5 mg NEB RTQID #120 vial.neb 04/01/18 04/07/18 Rx Arformoterol Neb Soln [Brovana Neb 15 mcg NEB RTBID #60 vial.neb 04/01/18 04/07/18 Rx Soln] Azithromycin [Zithromax] 250 mg PO Q24H #2 tab 04/01/18 04/07/18 Rx Tiotropium Inhalation Cap 18 mcg INHALATION RTDAILY #1 04/01/18 04/07/18 Rx [Spiriva Inhalation Cap] inhaler predniSONE Tab [Deltasone Tab] 40 mg PO DAILY #4 tab 04/01/18 04/07/18 Rx hydrocodone 10 mg-acetaminophen 1 tab PO Q4-6H PRN #120 tab 04/06/18 04/07/18 Rx 325 mg tablet levothyroxine 25 mcg tablet 25 mcg PO QDAY #30 tab 04/06/18 04/07/18 Rx Allergies/Adverse Reactions: Allergies Allergy/AdvReac Type Severity Reaction Status Date / Time codeine Allergy Severe RASH Verified 04/07/18 12:30 Penicillins Allergy RASH Verified 04/07/18 12:30 aspirin AdvReac Intermediate DYSPHORIA Verified 04/07/18 12:30 contrast dye Allergy Anaphylaxis Uncoded 04/07/18 12:30 Review of Systems - Review of Systems All Systems: Reviewed & No Additional Complaints Except as Stated Exam - Vitals Vital Signs: Vital Signs Temperature 96.6 F Temperature Source Temporal Artery Scan Pulse Rate 75 Respiratory Rate 22 Blood Pressure 130/63 Pulse Ox 96 Height 6 ft Weight 212 lb - General General Appearance: No Acute Distress, Cooperative - Head Head Exam: Normal Inspection - Eye Eye Exam: POSITIVE: Normal Appearance - ENT ENT Exam: POSITIVE: Normal Exam - Neck Neck Exam: Normal Inspection - Respiratory Additional Respiratory Exam Details: Decreased breath sounds few crackles heard at the bases. - Cardiovascular Cardiovascular Exam: POSITIVE: RRR - GI/Abdominal GI/Abdominal Exam: POSITIVE: Normal Bowel Sounds, Non Tender, Non Distended, Soft, No Organomegaly - Rectal Rectal Exam: POSITIVE: Deferred - External Exam: POSITIVE: Deferred Exam: POSITIVE: Deferred - Extremities Extremities Exam: POSITIVE: Normal Inspection - Back Back Exam: POSITIVE: Normal Inspection - Neurological Neurological Exam: POSITIVE: Alert, Oriented x 3, CN II-XII Intact, No Facial Droop, Speech Intact / Clear, Moves All Extremities Equally - Psychiatric Psychiatric Exam: POSITIVE: Normal Affect Results - Labs CBC and BMP: 04/07/18 11:32 04/07/18 11:30 - Imaging Status: Report Reviewed by Me (There are patchy left greater than right lung base opacities that could represent atelectasis versus early airspace disease in the correct clinical setting. Upright imaging may provide clarification when able.) Assessment and Plan - Patient Problems (1) COPD exacerbation Current Visit: Yes Status: Acute Comment: To me the chest x-ray looked worse compared to the one. That he had before his last admission to our hospital. It's Hard to say whether this is atelectasis only or there is presence of early pneumonia. Since this is his third admission within a month to a hospital in with the present changes in the x-ray and the symptoms will use Invanz as an antibiotic in addition to the Zithromax, continue bronchodilator and put him also on steroid. Code(s): J44.1 - Chronic obstructive pulmonary disease with (acute) exacerbation (2) Chest pain Current Visit: No Status: Acute Comment: The Chest pain is atypical. It did not respond to nitroglycerin. There was no radiation. Was constant. I think though because of his history of previous coronary artery disease will repeat his cardiac enzymes. May need to have a stress test later on once he cleared this infection/COPD exacerbation. Code(s): R07.9 - Chest pain, unspecified (3) Benign hypertension Current Visit: No Status: Acute Comment: Same medication (4) Hypothyroidism Current Visit: No Status: Chronic Comment: Same med Code(s): E03.9 - Hypothyroidism, unspecified Qualifiers: Hypothyroidism type: acquired Qualified Code(s): E03.9 - Hypothyroidism, unspecified (5) Hyperlipidemia Current Visit: Yes Status: Acute Comment: Continue same medications Code(s): E78.5 - Hyperlipidemia, unspecified (6) History of atrial fibrillation Current Visit: Yes Status: Acute Comment: Continue metoprolol and eliquis Code(s): Z86.79 - Personal history of other diseases of the circulatory system
[2018-04-07] MEDS ORDERED: ALBUTEROL SULFATE 2.5 MG/3 ML NEB PRN (14:53)
[2018-04-07] MEDS ORDERED: ONDANSETRON 4 MG/2 ML VIAL IVP PRN (14:53)
[2018-04-07] MEDS ORDERED: LIDOCAINE W/ SODIUM BICARB 0.5 ML SYR SUBD PRN (14:53)
[2018-04-07] MEDS ORDERED: TAMSULOSIN 0.4 MG CAPSULE PO SCH (15:00)
[2018-04-07] MEDS ORDERED: FOLIC ACID 1 MG TABLET PO SCH (15:00)
[2018-04-07] MEDS: IPRATROPIUM/ALBUTEROL SULFATE 3 ML NEB NEB SCH ×2 (15:40→18:48)
[2018-04-07] MEDS: methylPREDNISolone 40 MG/1 ML VIAL IVP SCH (17:45)
[2018-04-07] MEDS: Ertapenem Inj 1 GM in Sodium Chloride 0.9% 100 ML IV SCH (18:03)
[2018-04-07 18:32] LABS: BILIRUBIN,URINE NEGATIVE (NEG); CLARITY,URINE CLEAR (CLEAR); COLOR,URINE YELLOW (Y); GLUCOSE, URINE (UA) NEGATIVE (NEG); OCCULT BLOOD,URINE Trace-intact (NEG); PROTEIN,URINE NEGATIVE (NEG); UROBILINOGEN,URINE 0.2 EU/dL (0.2)
[2018-04-07 18:39] LABS: RBC,URINE 0-3 /hpf; SQUAMOUS EPITHELIAL CELL,UR RARE; URINE SAMPLE TYPE CLEAN CATCH URINE
[2018-04-07 18:40] LABS: BACTERIA,URINE FEW
[2018-04-07] MEDS: GABAPENTIN 300 MG CAPSULE PO SCH (20:09)
[2018-04-07] MEDS: OXYBUTYNIN 5 MG PO SCH (20:09)
[2018-04-07] MEDS: Metoprolol TARTRATE Tab 25 MG TAB PO SCH (20:09)
[2018-04-07] MEDS: Senna/Docusate Tab 1 TAB TAB PO SCH (20:09)
[2018-04-07] MEDS: TAMSULOSIN 0.4 MG CAPSULE PO SCH (20:09)
[2018-04-07] MEDS: Apixaban 5 MG TABLET PO SCH (20:09)
[2018-04-07] MEDS: ATORVASTATIN 40 MG TABLET PO SCH (20:09)
[2018-04-08] MEDS: methylPREDNISolone 40 MG/1 ML VIAL IVP SCH ×5 (00:01→23:38)
[2018-04-08] MEDS: LEVOTHYROXINE 25 MCG TABLET PO SCH (05:37)
[2018-04-08] MEDS: IPRATROPIUM/ALBUTEROL SULFATE 3 ML NEB NEB SCH ×3 (06:22→18:55)
[2018-04-08] MEDS: PANTOPRAZOLE 40 MG TABLET PO SCH (07:21)
--- NOTE | 2018-04-08 08:14 | PDOC(PROG) ---
Date of Service: 04/08/18 Time of Service: 08:10 Interval History: Subjective Patient's was initially denying pain in the chest today when I saw him. He said he feels better compared to yesterday. He did say that his pain in the chest was worse when he takes a deep breath yesterday but he does not have pain when he takes deep breath today. As he sat up so I can listen to his back he said he had some pain in his chest when he moved them resolved. Patient is a poor historian. He denied though pain in the arm denied pain radiation to the back. Still coughing initially was clear and now it's green. Objective : Data - Labs CBC and BMP: 04/07/18 11:32 04/07/18 11:30 Objective : Exam - General General Appearance: No Acute Distress, Cooperative - Head Head Exam: Normal Inspection - Eye Eye Exam: Normal Appearance - ENT ENT Exam: Normal Exam - Neck Neck Exam: Normal Inspection - Respiratory Additional Respiratory Exam Details: Decreased air entry otherwise clear - Cardiovascular Cardiovascular Exam: RRR - GI/Abdominal GI/Abdominal Exam: Normal Bowel Sounds, Non Tender, Non Distended, Soft, No Organomegaly - Rectal Rectal Exam: Deferred - External Exam: Deferred - Extremities Extremities Exam: Normal Inspection - Back Back Exam: Normal Inspection - Neurological Neurological Exam: Alert, Oriented x 3, CN II-XII Intact, No Facial Droop, Speech Intact / Clear, Moves All Extremities Equally - Psychiatric Psychiatric Exam: Normal Affect Assessment and Plan - Patient Problems (1) COPD exacerbation Current Visit: Yes Status: Acute Comment: Continue current antibiotics, steroid and bronchodilator. I think he needs to stay another day in the hospital he still on 6 L of oxygen and oxygen sats drop quickly with movement. Code(s): J44.1 - Chronic obstructive pulmonary disease with (acute) exacerbation (2) Chest pain Current Visit: No Status: Acute Comment: Atypical pain. Today first he said it was worse with the taking deep breath, then he said it's worse with his changing position which make it more like musculoskeletal pain. The chest is though is not tender. I think the issu e now is more COPD exacerbation this can be investigated later on once his COPD control is better. Code(s): R07.9 - Chest pain, unspecified (3) Benign hypertension Current Visit: No Status: Acute Comment: Same med (4) Hypothyroidism Current Visit: No Status: Chronic Comment: Same med Code(s): E03.9 - Hypothyroidism, unspecified Qualifiers: Hypothyroidism type: acquired Qualified Code(s): E03.9 - Hypothyroidism, unspecified (5) Hyperlipidemia Current Visit: Yes Status: Acute Comment: Same meds Code(s): E78.5 - Hyperlipidemia, unspecified (6) History of atrial fibrillation Current Visit: Yes Status: Acute Comment: Continue metoprolol and eliquis Code(s): Z86.79 - Personal history of other diseases of the circulatory system
[2018-04-08] MEDS: Sertraline Tab 50 MG TAB PO SCH (09:31)
[2018-04-08] MEDS: FOLIC ACID 1 MG TABLET PO SCH (09:31)
[2018-04-08] MEDS: GABAPENTIN 300 MG CAPSULE PO SCH ×2 (09:31→21:28)
[2018-04-08] MEDS: Metoprolol TARTRATE Tab 25 MG TAB PO SCH ×2 (09:31→21:27)
[2018-04-08] MEDS: OXYBUTYNIN 5 MG PO SCH ×3 (09:31→21:28)
[2018-04-08] MEDS: Apixaban 5 MG TABLET PO SCH ×2 (09:31→21:28)
[2018-04-08] MEDS: ACIDOPHILUS/BULGARICUS CHEWABLE TABLET PO SCH (09:32)
[2018-04-08] MEDS ORDERED: AZITHROMYCIN 500 MG VIAL IV ONE (12:51)
[2018-04-08] MEDS: Ertapenem Inj 1 GM in Sodium Chloride 0.9% 100 ML IV SCH (19:08)
[2018-04-08] MEDS: ATORVASTATIN 40 MG TABLET PO SCH (21:27)
[2018-04-08] MEDS: Senna/Docusate Tab 1 TAB TAB PO SCH (21:28)
[2018-04-08] MEDS: TAMSULOSIN 0.4 MG CAPSULE PO SCH (21:28)
[2018-04-09] MEDS ORDERED: CALCIUM CARBONATE 500 MG (TUMS) CHEWABLE TABLET PO ONE (03:53)
--- NOTE | 2018-04-09 04:03 | EKG ---
[address] [place] [address] Measurements Intervals [place] Rate: 74 P: 68 NM: 157 QRS: -29 QRSD: 106 T: 21 QT: 375 QTc: 403 Interpretive Statements SINUS RHYTHM WITH OCCASIONAL SUPRAVENTRICULAR PREMATURE COMPLEXES BORDERLINE LEFT AXIS DEVIATION [QRS AXIS < -20] LOW QRS VOLTAGE IN EXTREMITY LEADS [QRS DEFLECTION < 0.5 mV IN LIMB LEADS] Compared to ECG 04/07/2018 11:28:02 No significant changes Electronically Signed On 04-09-18 09:03:06 [facility] by Cristopher Oscar MD [id number]
[2018-04-09] MEDS: LEVOTHYROXINE 25 MCG TABLET PO SCH (05:53)
[2018-04-09] MEDS: methylPREDNISolone 40 MG/1 ML VIAL IVP SCH ×4 (05:53→23:49)
[2018-04-09] MEDS: IPRATROPIUM/ALBUTEROL SULFATE 3 ML NEB NEB SCH ×4 (06:07→19:26)
[2018-04-09] MEDS: PANTOPRAZOLE 40 MG TABLET PO SCH (06:31)
[2018-04-09] MEDS: ACIDOPHILUS/BULGARICUS CHEWABLE TABLET PO SCH (08:49)
[2018-04-09] MEDS: OXYBUTYNIN 5 MG PO SCH ×3 (08:49→20:22)
[2018-04-09] MEDS: Apixaban 5 MG TABLET PO SCH ×2 (08:49→20:23)
[2018-04-09] MEDS: FOLIC ACID 1 MG TABLET PO SCH (08:49)
[2018-04-09] MEDS: Metoprolol TARTRATE Tab 25 MG TAB PO SCH ×2 (08:49→20:22)
[2018-04-09] MEDS: Sertraline Tab 50 MG TAB PO SCH (08:49)
[2018-04-09] MEDS: GABAPENTIN 300 MG CAPSULE PO SCH ×2 (08:49→20:23)
--- NOTE | 2018-04-09 10:46 | PDOC(PROG) ---
Interval History: Patient states he feels a little better but really still has some mild shortness of breath. Nice chest pain Objective : Data - Labs CBC and BMP: 04/07/18 11:32 04/07/18 11:30 Objective : Exam - General General Appearance: Cooperative - Respiratory Respiratory Exam: Decreased Breath Sounds, Wheezes - Cardiovascular Cardiovascular Exam: RRR, No Murmur, No Clicks, No Gallops, No Rubs, PMI Non- Displaced - GI/Abdominal GI/Abdominal Exam: Normal Bowel Sounds, Non Tender, Non Distended, Soft, No Masses, No Hepatomegaly, No Splenomegaly, No Organomegaly Assessment and Plan - Patient Problems (1) COPD exacerbation Current Visit: Yes Status: Acute Comment: COPD exacerbation and possible pneumonia we'll check CTA rule out PE if pneumonia is found we'll change antibiotic regimen continue current medications for now until CTA is reviewed Code(s): J44.1 - Chronic obstructive pulmonary disease with (acute) exacerbation (2) Hypothyroidism Current Visit: No Status: Chronic Code(s): E03.9 - Hypothyroidism, unspecified Qualifiers: Hypothyroidism type: acquired Qualified Code(s): E03.9 - Hypothyroidism, unspecified (3) Chest pain Current Visit: No Status: Acute Comment: Resolved Code(s): R07.9 - Chest pain, unspecified (4) Benign hypertension Current Visit: No Status: Acute (5) Hyperlipidemia Current Visit: Yes Status: Acute Code(s): E78.5 - Hyperlipidemia, unspecified (6) History of atrial fibrillation Current Visit: Yes Status: Acute Comment: Stable Code(s): Z86.79 - Personal history of other diseases of the circulatory system
[2018-04-09] MEDS: CALCIUM CARBONATE 500 MG (TUMS) CHEWABLE TABLET PO PRN (12:15)
--- NOTE | 2018-04-09 13:13 | DI ---
CT Chest WO Contrast 04/09/2018 11:01 AM History: [facility] [place] ^increased shortness of breath Comparison: 03/31/2018, 06/02/2016. Technique: Noncontrast CT images through the chest were obtained for review in the axial, sagittal, a nd coronal planes. Findings: There is moderate diffuse centrilobular and paraseptal emphysema, most notable in the lung apices. There is right greater than left lung base atelectasis versus early airspace disease. There i s no pleural effusion or pneumothorax. There are calcified right lower lobe granulomata and right hil ar lymph nodes. Moderate diffuse bronchial wall thickening without endobronchial lesion. There is no mediastinal or h ilar lymphadenopathy. The main pulmonary artery is dilated at 3.5 cm. The aorta demonstrates normal c ourse and caliber. There are atheromatous coronary artery calcifications. Heart size is at the upper limits of with no pericardial effusion. The thyroid exhibits normal CT morphology. Osseous structures are not significantly changed. The visualized upper abdominal structures are notable for calcified splenic and hepatic granulomata. Multiple bilateral cystic renal lesions are noted, not significantly changed compared to prior imagin g. Impression: 1. There is right greater than left lung base atelectasis versus early airspace disease. There is no pleural effusion or pneumothorax. 2. Moderate diffuse emphysema. 3. There is diffuse bronchial wall thickening without endobronchial lesion. This is a non-specific fi nding that is most commonly seen in the setting of acute or chronic bronchitis, as well as reactive a irways disease. 4. The main pulmonary artery is dilated, a finding seen in the setting of pulmonary artery hypertensi on. 5. Borderline cardiomegaly without pericardial effusion.
[2018-04-09] MEDS: Ertapenem Inj 1 GM in Sodium Chloride 0.9% 100 ML IV SCH (17:01)
[2018-04-09] MEDS: TAMSULOSIN 0.4 MG CAPSULE PO SCH (20:22)
[2018-04-09] MEDS: Senna/Docusate Tab 1 TAB TAB PO SCH (20:22)
[2018-04-09] MEDS: ATORVASTATIN 40 MG TABLET PO SCH (20:22)
[2018-04-10 05:05] LABS: Hematocrit [HCT] 38.6 % (42.0-52.0); Hemoglobin [HGB] 12.8 g/dL (14.0-18.0); MEAN CORPUSCULAR HEMOGLOBIN 33.8 PG (27-31); MEAN CORPUSCULAR HGB CONC 33.2 g/dL (33-37); MEAN CORPUSCULAR VOLUME 101.8 FL (80-90); MEAN PLATELET VOLUME 11.1 FL (7.4-12.2); RED BLOOD COUNT 3.79 10^6/uL (4.70-6.10)
[2018-04-10] MEDS: methylPREDNISolone 40 MG/1 ML VIAL IVP SCH (05:16)
[2018-04-10] MEDS: LEVOTHYROXINE 25 MCG TABLET PO SCH (05:17)
[2018-04-10 05:54] LABS: BLOOD UREA NITROGEN 18 mg/dL (7-22); BUN/CREATININE RATIO 25.71 (6-20); SERUM ALBUMIN 3.9 g/dL (3.5-4.8)
[2018-04-10] MEDS: IPRATROPIUM/ALBUTEROL SULFATE 3 ML NEB NEB SCH ×4 (07:01→19:36)
[2018-04-10] MEDS: PANTOPRAZOLE 40 MG TABLET PO SCH (07:08)
[2018-04-10] MEDS ORDERED: LIDOCAINE HCL 2 % 10 ML JELLY URO-JECT TOPICAL PRN (08:10)
[2018-04-10] MEDS: Apixaban 5 MG TABLET PO SCH ×2 (09:17→20:47)
[2018-04-10] MEDS: FOLIC ACID 1 MG TABLET PO SCH (09:17)
[2018-04-10] MEDS: predniSONE Tab 20 MG TAB PO SCH (09:17)
[2018-04-10] MEDS: Metoprolol TARTRATE Tab 25 MG TAB PO SCH ×2 (09:17→20:47)
[2018-04-10] MEDS: Sertraline Tab 50 MG TAB PO SCH (09:17)
[2018-04-10] MEDS: OXYBUTYNIN 5 MG PO SCH ×3 (09:17→20:46)
[2018-04-10] MEDS: ACIDOPHILUS/BULGARICUS CHEWABLE TABLET PO SCH (09:17)
[2018-04-10] MEDS: GABAPENTIN 300 MG CAPSULE PO SCH ×2 (09:18→20:47)
[2018-04-10] MEDS ORDERED: FUROSEMIDE 10 MG/1 ML - 4 ML IVP ONE (09:52)
[2018-04-10] MEDS ORDERED: LIDOCAINE HCL 2 % 10 ML JELLY URO-JECT TOPICAL ONE (10:04)
--- NOTE | 2018-04-10 10:17 | PDOC(PROG) ---
Interval History: The patient has no complaints he he says he does not feel like moving or doing anything. No chest pain no nausea no vomiting Objective : Data - Labs CBC and BMP: 04/10/18 04:15 04/10/18 04:15 Objective : Exam - General General Appearance: Cooperative - Respiratory Respiratory Exam: Decreased Breath Sounds - Cardiovascular Cardiovascular Exam: RRR, No Murmur, No Clicks, No Gallops, No Rubs, PMI Non- Displaced - GI/Abdominal GI/Abdominal Exam: Normal Bowel Sounds, Non Tender, Non Distended, Soft, No Masses, No Hepatomegaly, No Splenomegaly, No Organomegaly - Extremities Extremities Exam: No Clubbing Present, No Cyanosis Present, +1 Edema Assessment and Plan - Patient Problems (1) COPD exacerbation Current Visit: Yes Status: Acute Comment: Continue antibiotics and prednisone [address] scan revealed may be early consolidation versus atelectasis. I believe the patient has severe pulmonary hypertension with end-stage emphysema and most likely right heart failure he will need an echo. I will insert urine Gaspar catheter diurese patient with 40 of Lasix twice a day since his BNP is elevated . Code(s): J44.1 - Chronic obstructive pulmonary disease with (acute) exacerbation (2) Hypothyroidism Current Visit: No Status: Chronic Code(s): E03.9 - Hypothyroidism, unspecified Qualifiers: Hypothyroidism type: acquired Qualified Code(s): E03.9 - Hypothyroidism, unspecified (3) Chest pain Current Visit: No Status: Acute Comment: Resolved Code(s): R07.9 - Chest pain, unspecified (4) Benign hypertension Current Visit: No Status: Acute (5) Hyperlipidemia Current Visit: Yes Status: Acute Code(s): E78.5 - Hyperlipidemia, unspeci fied (6) History of atrial fibrillation Current Visit: Yes Status: Acute Code(s): Z86.79 - Personal history of other diseases of the circulatory system - Assessment / Plan Additional Assessment/Plan Details: All other medical issues seem to be stable continue anticoagulation for history of A. fib and down blood pressure medication
[2018-04-10] MEDS: FUROSEMIDE 10 MG/1 ML - 2 ML VIAL IVP SCH (13:02)
[2018-04-10] MEDS: Ertapenem Inj 1 GM in Sodium Chloride 0.9% 100 ML IV SCH (17:43)
--- NOTE | 2018-04-10 19:08 | EKG ---
[address] [place] [address] Measurements Intervals [place] Rate: 75 P: 96 [place]: 141 QRS: -18 QRSD: 110 T: 4 QT: 410 QTc: 439 Interpretive Statements SINUS RHYTHM WITH FREQUENT SUPRAVENTRICULAR PREMATURE COMPLEXES POSSIBLE ANTERIOR MYOCARDIAL INFARCTION , PROBABLY OLD, MAY BE LEAD PLACEMENT ABNORMAL RHYTHM ECG Compared to ECG 04/09/2018 04:02:02 Myocardial infarct finding now present Electronically Signed On 04-11-18 15:55:[address] [facility] by James Vazquez [id number]
[2018-04-10] MEDS ORDERED: Magnesium Sulfate 2gm (Premix) 2 GM/50 ML BAG IV ONE (19:56)
[2018-04-10] MEDS ORDERED: Sodium Chloride 0.9% 250 ML ONE (20:38)
[2018-04-10] MEDS: ATORVASTATIN 40 MG TABLET PO SCH (20:47)
[2018-04-10] MEDS: Senna/Docusate Tab 1 TAB TAB PO SCH (20:47)
[2018-04-10] MEDS: TAMSULOSIN 0.4 MG CAPSULE PO SCH (20:47)
[2018-04-11] MEDS: CALCIUM CARBONATE 500 MG (TUMS) CHEWABLE TABLET PO PRN (00:51)
[2018-04-11] MEDS: LEVOTHYROXINE 25 MCG TABLET PO SCH (05:35)
[2018-04-11] MEDS: IPRATROPIUM/ALBUTEROL SULFATE 3 ML NEB NEB SCH ×4 (06:14→18:50)
[2018-04-11] MEDS: PANTOPRAZOLE 40 MG TABLET PO SCH (07:17)
[2018-04-11] MEDS: FUROSEMIDE 10 MG/1 ML - 2 ML VIAL IVP SCH ×2 (07:17→12:32)
[2018-04-11] MEDS: GABAPENTIN 300 MG CAPSULE PO SCH ×2 (08:43→20:38)
[2018-04-11] MEDS: ACIDOPHILUS/BULGARICUS CHEWABLE TABLET PO SCH (08:43)
[2018-04-11] MEDS: predniSONE Tab 20 MG TAB PO SCH (08:43)
[2018-04-11] MEDS: OXYBUTYNIN 5 MG PO SCH ×3 (08:43→20:38)
[2018-04-11] MEDS: Metoprolol TARTRATE Tab 25 MG TAB PO SCH ×2 (08:43→20:38)
[2018-04-11] MEDS: Sertraline Tab 50 MG TAB PO SCH (08:43)
[2018-04-11] MEDS: Apixaban 5 MG TABLET PO SCH ×2 (08:43→20:39)
[2018-04-11] MEDS: FOLIC ACID 1 MG TABLET PO SCH (08:43)
--- NOTE | 2018-04-11 10:06 | PDOC(PROG) ---
Interval History: Patient states he is improving his breathing is better. He has generalized weakness. I believe from the lack of exercise and movement. Objective : Data - Labs CBC and BMP: 04/10/18 04:15 04/10/18 04:15 Objective : Exam - General General Appearance: Cooperative - Respiratory Respiratory Exam: Clear to Auscultation - Bilaterally, Breathing Non Labored, Normal To Percussion, Normal to Percussion and Palpation, Decreased Breath Sounds - Cardiovascular Cardiovascular Exam: RRR, No Murmur, No Clicks, No Gallops, No Rubs, PMI Non- Displaced - GI/Abdominal GI/Abdominal Exam: Normal Bowel Sounds, Non Tender, Non Distended, Soft, No Masses, No Hepatomegaly, No Splenomegaly, No Organomegaly - Extremities Extremities Exam: No Clubbing Present, No Edema Present, No Cyanosis Present - Neurological Neurological Exam: Alert, Oriented x 3, Reflexes Normal, Normal Gait, CN II-XII Intact, No Facial Droop, Moves All Extremities Equally Assessment and Plan - Patient Problems (1) COPD exacerbation Current Visit: Yes Status: Acute Code(s): J44.1 - Chronic obstructive pulmonary disease with (acute) exacerbation (2) Hypothyroidism Current Visit: No Status: Chronic Code(s): E03.9 - Hypothyroidism, unspecified Qualifiers: Hypothyroidism type: acquired Qualified Code(s): E03.9 - Hypothyroidism, unspecified (3) Chest pain Current Visit: No Status: Acute Code(s): R07.9 - Chest pain, unspecified (4) Benign hypertension Current Visit: No Status: Acute (5) Hyperlipidemia Current Visit: Yes Status: Acute Code(s): E78.5 - Hyperlipidemia, unspecified (6) History of atrial fibrillation Current Visit: Yes Status: Acute Code(s): Z86.79 - Personal history of other diseases of the circulatory system - Assessment / Plan Additional Assessment/Plan Details: #1 COPD exacerbation #2 most likely severe pulmonary hypertension with right-sided heart failure #3 generalized weakness and deconditioning Continue by mouth steroids, antibiotics, diuretics patient diuresed about 5 L already his respiratory status has improved I still believe this is end-stage will need echo continue PTOT to evaluate if patient can be safely discharged home or needs further therapy in swing bed or jail
[2018-04-11] MEDS: Ertapenem Inj 1 GM in Sodium Chloride 0.9% 100 ML IV SCH (17:22)
[2018-04-11] MEDS: Senna/Docusate Tab 1 TAB TAB PO SCH (20:38)
[2018-04-11] MEDS: TAMSULOSIN 0.4 MG CAPSULE PO SCH (20:38)
[2018-04-11] MEDS: ATORVASTATIN 40 MG TABLET PO SCH (20:39)
[2018-04-12] MEDS: CALCIUM CARBONATE 500 MG (TUMS) CHEWABLE TABLET PO PRN ×2 (02:30→22:15)
[2018-04-12] MEDS: LEVOTHYROXINE 25 MCG TABLET PO SCH (04:40)
[2018-04-12] MEDS: IPRATROPIUM/ALBUTEROL SULFATE 3 ML NEB NEB SCH ×4 (06:41→18:51)
[2018-04-12] MEDS: PANTOPRAZOLE 40 MG TABLET PO SCH (07:13)
[2018-04-12] MEDS: FUROSEMIDE 10 MG/1 ML - 2 ML VIAL IVP SCH ×2 (07:14→13:03)
[2018-04-12 08:39] LABS: BASOPHILS # (AUTO) 0.01 10*3/UL; BASOPHILS % (AUTO) 0.1 % (0-1); EOSINOPHILS # (AUTO) 0.04 10*3/UL; EOSINOPHILS % (AUTO) 0.4 % (0-8); Hematocrit [HCT] 44.3 % (42.0-52.0); Hemoglobin [HGB] 15.1 g/dL (14.0-18.0); LYMPHOCYTES # (AUTO) 2.07 10*3/uL; MEAN CORPUSCULAR HEMOGLOBIN 34.4 PG (27-31); MEAN CORPUSCULAR HGB CONC 34.1 g/dL (33-37); MEAN CORPUSCULAR VOLUME 100.9 FL (80-90); MEAN PLATELET VOLUME 10.5 FL (7.4-12.2); MONOCYTES # (AUTO) 1.51 10*3/UL (0.3-0.8); MONOCYTES % (AUTO) 14.2 % (5-15); NEUTROPHILS # (AUTO) 6.98 10*3/UL; NEUTROPHILS % (AUTO) 65.5 % (50-80); RED BLOOD COUNT 4.39 10^6/uL (4.70-6.10)
[2018-04-12 08:51] LABS: PLATELET MORPHOLOGY COMMENT NORMAL MORPHOLOGY (NORM); RBC MORPHOLOGY COMMENT NORMAL MORPHOLOGY (NORM); WBC MORPHOLOGY COMMENT NORMAL MORPHOLOGY (NORM)
[2018-04-12 08:53] LABS: BLOOD UREA NITROGEN 22 mg/dL (7-22); BUN/CREATININE RATIO 24.44 (6-20)
[2018-04-12] MEDS ORDERED: POTASSIUM CHLORIDE 20 MEQ TAB PO ONE (09:38)
[2018-04-12] MEDS: ACIDOPHILUS/BULGARICUS CHEWABLE TABLET PO SCH (09:50)
[2018-04-12] MEDS: predniSONE Tab 20 MG TAB PO SCH (09:50)
[2018-04-12] MEDS: FOLIC ACID 1 MG TABLET PO SCH (09:50)
[2018-04-12] MEDS: Apixaban 5 MG TABLET PO SCH ×2 (09:50→20:42)
[2018-04-12] MEDS: GABAPENTIN 300 MG CAPSULE PO SCH ×2 (09:51→20:42)
[2018-04-12] MEDS: Sertraline Tab 50 MG TAB PO SCH (09:51)
[2018-04-12] MEDS: Metoprolol TARTRATE Tab 25 MG TAB PO SCH ×2 (09:51→21:32)
[2018-04-12] MEDS: OXYBUTYNIN 5 MG PO SCH (10:36)
--- NOTE | 2018-04-12 14:18 | PDOC(PROG) ---
Date of Service: 04/12/18 Time of Service: 14:13 Interval History: Patient seen and evaluated earlier with daughter present. No complaints from the patient today, noted to be breathing and pursed lip breathing on exam. Patient's daughter is quite concerned about his overall health and we discussed hospice care and she agrees that that's the best solution for the patient. He is not having any nausea or vomiting. Has been tired and is taking a nap this afternoon. Objective : Data - Labs CBC and BMP: 04/12/18 08:25 04/12/18 08:25 Additional Lab Results: 04/12/18 04/12/18 08:25 13:11 Magnesium 2.1 AST 18 L ALT 32 Alkaline Phosphatase 70 Total Protein 6.8 Albumin 4.0 Globulin 2.8 Albumin/Globulin Ratio 1.40 Objective : Exam - General General Appearance: No Acute Distress, Cooperative Additional General Exam Details: Vital Signs - Last Taken Temperature 97.5 F 04/12/18 12:50 Pulse Rate 71 04/12/18 12:50 Respiratory Rate 16 04/12/18 12:50 Blood Pressure 99/57 04/12/18 12:50 Pulse Ox 93 04/12/18 12:50 - Eye Eye Exam: No Scleral Icterus - ENT ENT Exam: Mucous Membranes Moist - Neck Neck Exam: JVP is not Raised - Respiratory Respiratory Exam: Breathing Non Labored, Crackles, Coarse Breath Sounds - Cardiovascular Cardiovascular Exam: No Murmur, No Clicks, No Gallops, No Rubs, Irregular Rhythm, No JVD - GI/Abdominal GI/Abdominal Exam: Normal Bowel Sounds, Non Tender, Non Distended, Soft - Extremities Extremities Exam: No Edema Present, No Cyanosis Present, Clubbing Present - Neurological Neurological Exam: Alert, No Facial Droop, Speech Intact / Clear, Moves All Extremities Equally - Psychiatric Psychiatric Exam: Normal Affect, Normal Mood Assessment and Plan - Patient Problems (1) Pneumonia Current Visit: No Status: Acute Code(s): J18.9 - Pneumonia, unspecified organism Qualifiers: Pneumonia type: due to unspecified organism Laterality: right Lung location: middle lobe of lung Qualified Code(s): J18.1 - Lobar pneumonia, unspecified organism (2) Cor pulmonale Current Visit: Yes Status: Acute Code(s): I27.81 - Cor pulmonale (chronic) (3) Hypothyroidism Current Visit: Yes Status: Chronic Code(s): E03.9 - Hypothyroidism, unspecified Qualifiers: Hypothyroidism type: acquired Qualified Code(s): E03.9 - Hypothyroidism, unspecified (4) Benign hypertension Current Visit: No Status: Acute (5) COPD exacerbation Current Visit: Yes Status: Acute Code(s): J44.1 - Chronic obstructive pul monary disease with (acute) exacerbation (6) Hyperlipidemia Current Visit: Yes Status: Acute Code(s): E78.5 - Hyperlipidemia, unspecified Qualifiers: Hyperlipidemia type: unspecified Qualified Code(s): E78.5 - Hyperlipidemia, unspecified (7) Atrial fibrillation Current Visit: Yes Status: Acute Code(s): I48.91 - Unspecified atrial fibrillation Qualifiers: Atrial fibrillation type: chronic Qualified Code(s): I48.2 - Chronic atrial fibrillation (8) Hypertension Current Visit: Yes Status: Chronic Code(s): I10 - Essential (primary) hypertension Qualifiers: Hypertension type: essential hypertension Qualified Code(s): I10 - Essential (primary) hypertension - Assessment / Plan Additional Assessment/Plan Details: Continue antibiotics for pneumonia, and reduce Lasix to by mouth. Replace potassium. The patient overall, would benefit from home hospice versus hospice in hospice hospital. labs in AM spoke with daughter about plan and she agrees.
[2018-04-12] MEDS: Ertapenem Inj 1 GM in Sodium Chloride 0.9% 100 ML IV SCH (18:44)
[2018-04-12] MEDS: POTASSIUM CHLORIDE 20 MEQ TAB PO SCH (20:42)
[2018-04-12] MEDS: TAMSULOSIN 0.4 MG CAPSULE PO SCH (20:43)
[2018-04-12] MEDS: ATORVASTATIN 40 MG TABLET PO SCH (20:43)
[2018-04-12] MEDS: Senna/Docusate Tab 1 TAB TAB PO SCH (21:32)
[2018-04-13] MEDS: LEVOTHYROXINE 25 MCG TABLET PO SCH (05:40)
[2018-04-13 06:18] LABS: BLOOD UREA NITROGEN 28 mg/dL (7-22)
[2018-04-13] MEDS: FUROSEMIDE 20 MG TABLET PO SCH ×2 (06:36→12:29)
[2018-04-13] MEDS: PANTOPRAZOLE 40 MG TABLET PO SCH (06:36)
[2018-04-13] MEDS: IPRATROPIUM/ALBUTEROL SULFATE 3 ML NEB NEB SCH ×4 (07:53→19:32)
[2018-04-13] MEDS: Sertraline Tab 50 MG TAB PO SCH (08:37)
[2018-04-13] MEDS: predniSONE Tab 20 MG TAB PO SCH (08:37)
[2018-04-13] MEDS: Metoprolol TARTRATE Tab 25 MG TAB PO SCH ×2 (08:37→21:22)
[2018-04-13] MEDS: POTASSIUM CHLORIDE 20 MEQ TAB PO SCH (08:38)
[2018-04-13] MEDS: GABAPENTIN 300 MG CAPSULE PO SCH ×2 (08:38→21:22)
[2018-04-13] MEDS: FOLIC ACID 1 MG TABLET PO SCH (08:38)
[2018-04-13] MEDS: Apixaban 5 MG TABLET PO SCH ×2 (08:38→21:22)
[2018-04-13] MEDS: ACIDOPHILUS/BULGARICUS CHEWABLE TABLET PO SCH (09:47)
--- NOTE | 2018-04-13 13:27 | PDOC(PROG) ---
Date of Service: 04/13/18 Time of Service: 13:22 Interval History: no complaints of chest pain, shortness of breath. no nausea or vomiting. states he is hungry. spoke with his daughter, and she is not sure yet about home hospice--wants to try to give the patient a chance to get better. seen and evaluated earlier. Objective : Data - Labs CBC and BMP: 04/12/18 08:25 04/13/18 05:30 Objective : Exam - General General Appearance: No Acute Distress, Cooperative Additional General Exam Details: Vital Signs - Last Taken Temperature 97.8 F 04/13/18 11:33 Pulse Rate 64 04/13/18 11:49 Respiratory Rate 20 04/13/18 11:49 Blood Pressure 128/73 04/13/18 11:33 Pulse Ox 98 04/13/18 11:49 - Eye Eye Exam: No Scleral Icterus - ENT ENT Exam: Mucous Membranes Moist - Neck Neck Exam: JVP is not Raised - Respiratory Respiratory Exam: Breathing Non Labored, Coarse Breath Sounds - Cardiovascular Cardiovascular Exam: RRR, No Murmur, No Clicks, No Gallops, No Rubs, No JVD - GI/Abdominal GI/Abdominal Exam: Normal Bowel Sounds, Non Tender, Non Distended, Soft - Extremities Extremities Exam: No Edema Present, No Cyanosis Present, Clubbing Present - Neurological Neurological Exam: Alert, No Facial Droop, Speech Intact / Clear, Moves All Extremities Equally Assessment and Plan - Patient Problems (1) Pneumonia Current Visit: Yes Status: Acute Code(s): J18.9 - Pneumonia, unspecified organism Qualifiers: Pneumonia type: due to unspecified organism Laterality: right Lung location: middle lobe of lung Qualified Code(s): J18.1 - Lobar pneumonia, unspecified organism (2) Cor pulmonale Current Visit: Yes Status: Acute Code(s): I27.81 - Cor pulmonale (chronic) (3) Hypothyroidism Current Visit: Yes Status: Chronic Code(s): E03.9 - Hypothyroidism, uns pecified Qualifiers: Hypothyroidism type: acquired Qualified Code(s): E03.9 - Hypothyroidism, unspecified (4) Benign hypertension Current Visit: Yes Status: Acute (5) COPD exacerbation Current Visit: Yes Status: Acute Code(s): J44.1 - Chronic obstructive pulmonary disease with (acute) exacerbation (6) Hyperlipidemia Current Visit: Yes Status: Acute Code(s): E78.5 - Hyperlipidemia, unspecified Qualifiers: Hyperlipidemia type: unspecified Qualified Code(s): E78.5 - Hyperlipidemia, unspecified (7) Atrial fibrillation Current Visit: Yes Status: Acute Code(s): I48.91 - Unspecified atrial fibrillation Qualifiers: Atrial fibrillation type: chronic Qualified Code(s): I48.2 - Chronic atrial fibrillation (8) Hypertension Current Visit: Yes Status: Chronic Code(s): I10 - Essential (primary) hypertension Qualifiers: Hypertension type: essential hypertension Qualified Code(s): I10 - Essential (primary) hypertension - Assessment / Plan Additional Assessment/Plan Details: continued antibiotics and oxygen as indicated. continue steroids PT and OT/swing bed eval will probably do a course of 7 to 10 days of antibiotics continue gentle diuresis with lasix, potassium replacement, for likely cor pulmonale. overall prognosis very poor for manager long term care recovery with end stage lung disease. probably will go swing first, see if the patient can improve as daughter is not sure if the patient should go home or to home hospice.
--- NOTE | 2018-04-13 15:42 | PTI REPORT ---
Thank you for the referral of Vitaliy Mao. He was seen on 04/13/18 for a swingbed evaluation secondary to COPD and pneumonia. SUBJECTIVE: The patient is an 83-year-old male who presented to the hospital on 04/07/2018 secondary to a COPD exacerbation, complaints of shortness of breath, and chest pain. The patient was admitted to the hospital at that time and has been undergoing treatment for the above diagnosis and has also been diagnosed with pneumonia. The patient was placed on six liters of oxygen when he presented to the hospital. Per review of the patient's chart, this is his third admission to the hospital this month for the above diagnosis. The patient states that he lives here in [place] where he lives with his . The patient states that his is in fair health. He states that both of them get around fairly well but do help each other out as needed. He states that he does have a son that lives here in [facility] that helps out as well. He states they live in a house that has a ramp to get in and is all on one level. The patient states that for the most part he is independent with dressing and ADLs. Prior to his latest admission, the patient primarily uses a four wheeled walker to get around with and was on four liters of oxygen at home. The patient denies any major falls over the last three months but states that he did have a couple of falls off of his couch. Since that time he states he has gotten rid of his couch and has instead purchased lift chairs for the home, which is where he also sleeps at night. The patient reports when he has had falls, he is unable to get up himself and usually needs assistance primarily from his son. PAST MEDICAL HISTORY: Past medical history can be found in the patient's medical record. OBJECTIVE FINDINGS: General observations: The patient was seated edge of bed upon PT arrival. Nursing staff was moving the patient to a different room at the time. The therapist assisted with helping the patient ambulate to the new room. Transfers: The patient was able to perform a sit to stand transfer with contact guard assist x1 for safety with use of the front wheeled walker and contact guard assist x1 for safety. The patient required verbal cues for safety to reach back before transferring from stand to sit. The patient demonstrates good seated balance and does demonstrate a lateral lean to the left. Ambulation: The patient was able to ambulate x50 feet to the new room. The patient does demonstrate poor initial standing balance after his sit to stand. Once he is moving he does fairly well. He does have a shortened gait pattern with a forward lean. Once in the room the patient was able to perform standing balance with hand hold assist x2 on the walker and contact guard assist x1 for safety x1 minute. The patient then required verbal cueing in order to turn and back up to the chair that was in the room. Following ambulation and transfer back to chair, we did check the patient's oxygen saturation and he was at 91%. Strength: Manual muscle testing was performed in a seated position. The patient demonstrates 4/5 seated manual muscle test strength. ASSESSMENT: The patient has fair to poor rehab potential secondary to his past medical history and overall health at this time. Problem List: Generalized weakness Decreased endurance/activity tolerance Poor balance reaction Short-Term Goals: [facility] Patient will be able to transfer from bed to stand safely and independently. Patient will be able to ambulate at least 150 feet with use of front wheeled walker safely and independently and maintain oxygen saturation at at least 88%. Patient will be able to tolerate 30 minutes of physical therapy activity while keeping his oxygen saturation within an appropriate range. Long-Term Goals: To be met following discharge from [facility]: At this time according to the progress notes on the patient, it is being determined whether he will return back home or return home with hospice. TREATMENT PLAN: Patient will be seen B.I.D during the week and one time per day over the weekend as a swingbed patient to address the above goals and objectives. INITIAL TREATMENT: Treatment today consisted of the swingbed evaluation. Following evaluation the patient's call light was left within reach and the patient's tray was brought in front of him as he decided that he would like to remain sitting upright in the chair. The chair alarm was set. [facility]
[2018-04-13] MEDS: Ertapenem Inj 1 GM in Sodium Chloride 0.9% 100 ML IV SCH (18:35)
[2018-04-13] MEDS: Senna/Docusate Tab 1 TAB TAB PO SCH (21:21)
[2018-04-13] MEDS: ATORVASTATIN 40 MG TABLET PO SCH (21:22)
[2018-04-13] MEDS: TAMSULOSIN 0.4 MG CAPSULE PO SCH (21:22)
[2018-04-14] MEDS: LEVOTHYROXINE 25 MCG TABLET PO SCH (05:14)
[2018-04-14 05:15] LABS: BASOPHILS # (AUTO) 0.01 10*3/UL; BASOPHILS % (AUTO) 0.1 % (0-1); EOSINOPHILS # (AUTO) 0.03 10*3/UL; EOSINOPHILS % (AUTO) 0.2 % (0-8); Hematocrit [HCT] 40.9 % (42.0-52.0); Hemoglobin [HGB] 13.8 g/dL (14.0-18.0); LYMPHOCYTES # (AUTO) 2.05 10*3/uL; MEAN CORPUSCULAR HEMOGLOBIN 33.7 PG (27-31); MEAN CORPUSCULAR HGB CONC 33.7 g/dL (33-37); MEAN PLATELET VOLUME 11.1 FL (7.4-12.2); MONOCYTES # (AUTO) 1.17 10*3/UL (0.3-0.8); MONOCYTES % (AUTO) 9.2 % (5-15); NEUTROPHILS # (AUTO) 9.36 10*3/UL; NEUTROPHILS % (AUTO) 73.9 % (50-80); RED BLOOD COUNT 4.09 10^6/uL (4.70-6.10)
[2018-04-14 05:35] LABS: BLOOD UREA NITROGEN 22 mg/dL (7-22); BUN/CREATININE RATIO 31.42 (6-20)
[2018-04-14 05:52] LABS: PLATELET MORPHOLOGY COMMENT NORMAL MORPHOLOGY (NORM); RBC MORPHOLOGY COMMENT NORMAL MORPHOLOGY (NORM); WBC MORPHOLOGY COMMENT NORMAL MORPHOLOGY (NORM)
[2018-04-14] MEDS: PANTOPRAZOLE 40 MG TABLET PO SCH (06:50)
[2018-04-14] MEDS: FUROSEMIDE 20 MG TABLET PO SCH ×2 (06:50→13:10)
[2018-04-14 08:18] VITALS: TEMP 97
[2018-04-14] MEDS: predniSONE Tab 20 MG TAB PO SCH (08:40)
[2018-04-14] MEDS: GABAPENTIN 300 MG CAPSULE PO SCH (08:40)
[2018-04-14] MEDS: Sertraline Tab 50 MG TAB PO SCH (08:40)
[2018-04-14] MEDS: Apixaban 5 MG TABLET PO SCH (08:40)
[2018-04-14] MEDS: FOLIC ACID 1 MG TABLET PO SCH (08:40)
[2018-04-14] MEDS: ACIDOPHILUS/BULGARICUS CHEWABLE TABLET PO SCH (08:40)
[2018-04-14] MEDS: Metoprolol TARTRATE Tab 25 MG TAB PO SCH (08:40)
[2018-04-14] MEDS ORDERED: POTASSIUM CHLORIDE 20 MEQ TAB PO SCH (09:00)
[2018-04-14] MEDS: IPRATROPIUM/ALBUTEROL SULFATE 3 ML NEB NEB SCH ×2 (09:21→11:53)
--- NOTE | 2018-04-14 11:02 | OT.PROG ---
Progress Note Progress Note: S: pt stated that he was feeling okay and agreed to therapy services. O: tx consisted of bed mobility from supine to EOB with use of bed bars. pt completed seated UE RTB exercises of biceps, triceps and chest pulls x15 each, STS x1, functional ambulation x5' with 4WW to chair where pt completed functional transfer. A: pt is weak but is motivated to complete therapy. pts tolerance for activity is poor. P: continue POC
--- NOTE | 2018-04-14 11:37 | PT.PROG ---
Progress Note Progress Note: S: pt reports he is doing fair O: nsg okay'd prior to PT. pt instructed in seated LAQs 1# x 20 reps, seated marches 1# x 20 reps, seated minute drills 4 x 1 min 1#. pt instructed in seated clams RTB x20, seated pillow squeezes x 20, seated hamstring curls RTB x 20. sit to stand transfer with walker CGA x 1, pt instructed to ambulate approx 30 feet with CGA x 1 on 6 LO2. pt returned to chair with call light within reach and chair alarm activated. A: pt tolerated program fair, fatigues easily. continues to benefit from skilled therapy P: cont per POC.
[2018-04-14 12:02] VITALS: O2SAT 99
--- NOTE | 2018-04-14 12:35 | OTI REPORT ---
Thank you for the referral of Vitaliy Mao. He was seen on 04/13/18 for an occupational therapy swingbed evaluation secondary to COPD and pneumonia. SUBJECTIVE: The patient is an 83-year-old male who is being seen secondary to having increased breathing difficulties. He is having difficulty taking care of himself more frequently; this is his third hospital stay in the last month. Typically the patient has been on oxygen. He has a lot of lung issues that are affecting his breathing. Prior to him getting sick he was independent with ADLs. Recently the patient has had a little more family come and assist him with activities. PAST MEDICAL HISTORY: Past medical history can be found in the patient's medical record. OBJECTIVE FINDINGS: General observations: Today the patient was sitting in chair upon the therapist's arrival. The patient is on six liters of oxygen. Range of motion: The patient does have good active range of motion of bilateral upper extremities. Strength: Strength throughout bilateral upper extremities is 4/5. Endurance: The patient's limiting fact at this point is his activity tolerance as he gets very short of breath with most activities within a short time period Activities of daily living: The patient was able to sit in chair and doff and don socks independently. He does need contact guard to min assist to keep balance while completing lower extremity dressing to pull pants to waist level. Transfers: The patient requires contact guard to min assist for functional transfers for balance. ASSESSMENT: Problem List: Decreased endurance Decreased upper extremity strength Decreased ability to complete functional transfers Short-Term Goals: To be met by discharge from swingbed: Patient will be able to dress self including set up independently. Patient will increase upper extremity strength to 5/5 to improve overall functional transfers. Patient will learn energy conservation techniques and be able to implement at least three of them independently. Patient will be able to complete all functional transfers including bed and toilet transfers independently. Long-Term Goals: To be met following discharge from swingbed: Patient will return home, demonstrating safety and independence with all basic ADLs and functional transfers. TREATMENT PLAN: Patient will be seen B.I.D during the week and one time per day over the weekend as a swingbed patient to address the above goals and objectives. INITIAL TREATMENT: Treatment today consisted of the swingbed evaluation followed by lower extremity dressing. The patient becomes very short of breath. We talked about pursed lipped breathing and breathing in through the nose and out through the mouth, especially when completing tedious or longer tasks. The patient performed 5 sit to stands with increased time. This did fatigue the patient quite a bit. [facility]TDD
[2018-04-14 13:18] VITALS: BP 129/64; RESP 20
--- NOTE | 2018-04-14 13:28 | DI ---
XR CXR 1VW 04/14/2018 12:08 PM HISTORY: [facility] ^fluid overload, COPD Comparison: CT chest 04/09/2018. Chest x-ray 04/07/2018. Findings: A single portable frontal view of the chest is submitted. Images demonstrate bibasilar linear opacities with a bulla in the left lower lateral lung base. There is no large pneumothorax or pleural effusion. The cardiomediastinal silhouette is at the upper limit s of normal without significant pulmonary edema. Atheromatous calcifications are present in the arch of the tortuous thoracic aorta. The osseous structures are not significantly changed. Impression: 1. There are bibasilar linear opacities that could represent atelectasis versus early airspace diseas e in the correct clinical setting. Followup to resolution is recommended. 2. Size is at the upper limits of normal without significant pulmonary edema. This could be due to [place] versus mild cardiomegaly.
[2018-04-14] MEDS: Ertapenem Inj 1 GM in Sodium Chloride 0.9% 100 ML IV SCH (13:32)
--- NOTE | 2018-04-14 14:22 | DCSUMMARY ---
Hospitalization Summary Admit Date: 04/07/2018 Discharge Date: 04/14/18 Primary Diagnosis:: acute hypoxemic respiratory failure Hospital Course: This very pleasant 83-year-old male that was admitted in the setting of pneumonia, COPD and emphysema, and was placed on Invanz and Zithromax. I believe he was considered to have a healthcare associated pneumonia with his recent admissions. He was slow to improve and was eventually placed on diuresis in the setting of presumed worsened right-sided congestive heart failure and probable left congestive heart failure. Recent echocardiogram done on the prior hospital stay did show a depressed ejection fraction at 55%, valvular heart disease, and severe pulmonary hypertension. We discussed the possibility of going to home hospice. Hospice coordinators came down and discussed with the patient, his daughter in particular. The patient is actually started to develop dementia and so his daughter is really managing a lot of aspects of his care now. At this time, the family does not want to pursue home hospice and they like to continue to treat infections. Given this desire, we tried to maximize LAMA-LABA therapy, and given the number of infections in the last 6 months, recommended daily Zithromax therapy. In a ddition, we laced the patient on Lasix and potassium. He did diurese well and his chest x-ray does look improved at the time of discharge in terms of his increased pulmonary edema in the bases of the lungs. He completed a total of 7 days of antibiotic therapy and I think this pneumonia is been treated and he has been afebrile. Today, he mostly complains that he wants to go home. He denies any changes in his breathing he denies any chest pain and he denies nausea or vomiting. I spoke with the patient's daughter who is in agreement that the patient should be discharged home. She might choose to pursue outpatient hospice with her primary care physician, Dr. Carney, and I tried to notify him of the patient's condition as well. Assessment and Plan: 1. As per discharge assessments noted 2. Disposition: Patient is discharged home. 3. Condition on discharge, stable and improved. Long-term prognosis poor and I suspect less than 6 months to live with end-stage COPD, and end-stage congestive heart failure/pulmonary hypertension 4. Diet: regular diet 5. Activities: resume normal activities 6. Follow-Up: 1. Dr. Lansang 7. Medications at the Time of Discharge: Home Medications Medication Instructions Recorded Confirmed Type Diaper,Brief,Adult, Disposable 1 ea TOPICAL QID #160 ea 11/14/15 04/07/18 Rx [Depend] Walker [Ultra-Light Rollator] 1 ea MC ONCE #1 ea 12/11/15 04/07/18 Rx folic acid 1 mg tablet 1 mg PO QDAY #30 tab 12/22/17 04/07/18 Rx hydrocortisone 2.5 % topical cream 1 applic TOPICAL BID PRN #120 g 12/29/17 04/07/18 Rx atorvastatin 40 mg tablet 40 mg PO QDAY #30 tab 01/18/18 04/07/18 Rx apixaban 5 mg tablet 5 mg PO BID #60 tab 01/22/18 04/07/18 Rx metoprolol tartrate 25 mg tablet 12.5 mg PO BID #30 tab 01/22/18 04/07/18 Rx sertraline 50 mg tablet 50 mg PO DAILY #30 tab 03/15/18 04/07/18 Rx tamsulosin 0.4 mg capsule 0.4 mg PO QDAY #30 cap 03/29/18 04/07/18 Rx Gabapentin 300 mg PO BID 03/30/18 04/07/18 History L. Acidophilus/L.bulgaricus 1 tab PO DAILY 03/30/18 04/07/18 History [Lactobacillus Tablet] Pantoprazole Sodium [Protonix] 40 mg PO DAILY 03/30/18 04/07/18 History Sennosides/Docusate Sodium 2 tab PO BEDTIME 03/30/18 04/07/18 History [Senokot-S Tablet] Albuterol Neb Soln 0.083% 2.5 mg NEB RTQID #120 vial.neb 04/01/18 04/07/18 Rx Arformoterol Neb Soln [Brovana Neb 15 mcg NEB RTBID #60 vial.neb 04/01/18 04/07/18 Rx Soln] Tiotropium Inhalation Cap 18 mcg INHALATION RTDAILY #1 04/01/18 04/07/18 Rx [Spiriva Inhalation Cap] inhaler hydrocodone 10 mg-acetaminophen 1 tab PO Q4-6H PRN #120 tab 04/06/18 04/07/18 Rx 325 mg tablet Azithromycin [Zithromax] 250 mg PO Q24H #30 tab 04/14/18 Rx Furosemide [Lasix] 20 mg PO BID@0700,1300 #60 tab 04/14/18 Rx Potassium Chloride [Klor-Con] 20 meq PO DAILY #30 tab 04/14/18 Rx 8. Time, care, counseling and coordination of care for this discharge is greater than 30 minutes. Exam - Vitals Vital Signs: Vital Signs Temperature 97 F Temperature Source Temporal Artery Scan Pulse Rate [Pulse Oximeter] 90 Pulse Rate [Telemetry] 65 Pulse Rate 64 Respiratory Rate 20 Blood Pressure [Right Arm] 129/64 Blood Pressure [Left Arm] 120/67 Blood Pressure 130/63 Pulse Ox 99 Oxygen Flow Rate 5 Oxygen Delivery Method Nasal Cannula Height 6 ft Weight 203 lb 9.6 oz - General General Appearance: No Acute Distress, Cooperative - Eye Eye Exam: POSITIVE: No Scleral Icterus - ENT ENT Exam: POSITIVE: Mucous Membranes Moist - Neck Neck Exam: JVP is not Raised - Respiratory Respiratory Exam: POSITIVE: Breathing Non Labored, Normal to Percussion and Palpation, Coarse Breath Sounds - Cardiovascular Cardiovascular Exam: POSITIVE: No Murmur, No Clicks, No Gallops, No Rubs, Irregular Rhythm, No JVD - GI/Abdominal GI/Abdominal Exam: POSITIVE: Normal Bowel Sounds, Non Tender, Non Distended, Soft - Extremities Extremities Exam: POSITIVE: No Edema Present, No Cyanosis Present, Clubbing Present - Neurological Neurological Exam: POSITIVE: Alert, No Facial Droop, Speech Intact / Clear, Moves All Extremities Equally Data Peritnent Studies: 04/07/18 04/07/18 04/07/18 11:30 11:30 11:30 WBC Hgb Hct Plt Count Sodium Potassium Chloride Carbon Dioxide Anion Gap BUN Creatinine BUN/Creatinine Ratio Glucose Calculated Osmolality Lactic Acid 1.7 Calcium Magnesium 1.8 ALT Alkaline Phosphatase Troponin I NT-Pro-B Natriuret Pep 572 H Total Protein Albumin Globulin Albumin/Globulin Ratio 04/09/18 04/10/18 04/12/18 16:01 19:20 08:25 WBC Hgb Hct Plt Count Sodium Potassium Chloride Carbon Dioxide Anion Gap BUN Creatinine BUN/Creatinine Ratio Glucose Calculated Osmolality Lactic Acid Calcium Magnesium ALT 32 Alkaline Phosphatase 70 Troponin I < 0.012 NT-Pro-B Natriuret Pep 3800 H Total Protein 6.8 Albumin 4.0 Globulin 2.8 Albumin/Globulin Ratio 1.40 04/14/18 04/14/18 04:30 04:30 WBC 12.67 H Hgb 13.8 L Hct 40.9 L Plt Count 178 Sodium 134 L Potassium 4.2 Chloride 101 Carbon Dioxide 28 Anion Gap 5 BUN 22 Creatinine 0.7 BUN/Creatinine Ratio 31.42 H Glucose 85 Calculated Osmolality 279.0 Lactic Acid Calcium 8.9 Magnesium ALT Alkaline Phosphatase Troponin I NT-Pro-B Natriuret Pep Total Protein Albumin Globulin Albumin/Globulin Ratio Procedures: [address] [facility]. [facility] [place] [id number] PH: DD: [phone] FAX: [phone] ~DIAGNOSTIC IMAGING REPORT~ Patient: Vitaliy Mao : 1935 Sex: M Age: 83 Exam Name: CT Chest WO Contrast Exam Date: 04/09/18 Report # : [id number] CPT Code: 05433 EMR/MR #: [id number] Ordering: Renny Cronin Admiting: RENNY CRONIN MD. Primary: Thien Boo MD Attending: RENNY CRONIN MD. Signed CT Chest WO Contrast 04/09/2018 11:01 AM History: [facility] DI ^increased shortness of breath Comparison: 03/31/2018, 06/02/2016. Technique: Noncontrast CT images through the chest were obtained for review in the axial, sagittal, and coronal planes. Findings: There is moderate diffuse centrilobular and paraseptal emphysema, most notable in the lung apices. There is right greater than left lung base atelectasis versus early airspace disease. There is no pleural effusion or pneumothorax. There are calcified right lower lobe granulomata and right hilar lymph nodes. Moderate diffuse bronchial wall thickening without endobronchial lesion. There is no mediastinal or hilar lymphadenopathy. The main pulmonary artery is dilated at 3.5 cm. The aorta demonstrates normal course and caliber. There are atheromatous coronary artery calcifications. Heart size is at the upper limits of with no pericardial effusion. The thyroid exhibits normal CT morphology. Osseous structures are not significantly changed. The visualized upper abdominal structures are notable for calcified splenic and hepatic granulomata. Multiple bilateral cystic renal lesions are noted, not significantly changed compared to prior imaging. Impression: 1. There is right greater than left lung base atelectasis versus early airspace disease. There is no pleural effusion or pneumothorax. 2. Moderate diffuse emphysema. 3. There is diffuse bronchial wall thickening without endobronchial lesion. This is a non-specific finding that is most commonly seen in the setting of acute or chronic bronchitis, as well as reactive airways disease. 4. The main pulmonary artery is dilated, a finding seen in the setting of pulmonary artery hypertension. 5. Borderline cardiomegaly without pericardial effusion. Dictated By: 04/09/18 1235 MARY JANE LAUGHLIN MD. Signed By: 04/09/18 1313 MARY JANE LAUGHLIN MD. [address] [facility] [place] [id number] PH: DD: [phone] FAX: [phone] ~DIAGNOSTIC IMAGING REPORT~ Patient: Vitaliy Mao : 1935 Sex: M Age: 83 Exam Name: XR CXR 1VW Exam Date: 04/14/18 Report # : [id number] CPT Code: 83242 EMR/MR #: [id number] Ordering: DENA RICHARD Admiting: RENNY CRONIN MD. Primary: Thien Boo MD Attending: RENNY CRONIN MD. Signed XR CXR 1VW 04/14/2018 12:08 PM HISTORY: [facility] DI ^fluid overload, COPD Comparison: CT chest 04/09/2018. Chest x-ray 04/07/2018. Findings: A single portable frontal view of the chest is submitted. Images demonstrate bibasilar linear opacities with a bulla in the left lower lateral lung base. There is no large pneumothorax or pleural effusion. The cardiomediastinal silhouette is at the upper limits of normal without significant pulmonary edema. Atheromatous calcifications are present in the arch of the tortuous thoracic aorta. The osseous structures are not significantly vijaya nged. Impression: 1. There are bibasilar linear opacities that could represent atelectasis versus early airspace disease in the correct clinical setting. Followup to resolution is recommended. 2. Size is at the upper limits of normal without significant pulmonary edema. This could be due to technique versus mild cardiomegaly. Dictated By: 04/14/18 1237 MARY JANE LAUGHLIN MD. Signed By: 04/14/18 1328 MARY JANE LAUGHLIN MD. Patient Problems - Patient Problem List (1) Acute on chronic respiratory failure with hypoxemia Current Visit: Yes Status: Acute Code(s): J96.21 - Acute and chronic respiratory failure with hypoxia Category: Medical (2) Pneumonia Current Visit: Yes Status: Resolved Code(s): J18.9 - Pneumonia, unspecified organism Qualifiers: Pneumonia type: due to unspecified organism Laterality: right Lung location: middle lobe of lung Qualified Code(s): J18.1 - Lobar pneumonia, unspecified organism Category: Medical (3) Cor pulmonale Current Visit: Yes Status: Acute Code(s): I27.81 - Cor pulmonale (chronic) Category: Medical (4) Hypothyroidism Current Visit: Yes Status: Chronic Comment: Continue Synthroid Code(s): E03.9 - Hypothyroidism, unspecified Qualifiers: Hypothyroidism type: acquired Qualified Code(s): E03.9 - Hypothyroidism, unspecified Category: Medical (5) Benign hypertension Current Visit: Yes Status: Acute Category: Medical (6) COPD exacerbation Current Visit: Yes Status: Acute Code(s): J44.1 - Chronic obstructive pulmonary disease with (acute) exacerbation Category: Medical (7) Hyperlipidemia Current Visit: Yes Status: Acute Code(s): E78.5 - Hyperlipidemia, unspecified Qualifiers: Hyperlipidemia type: unspecified Qualified Code(s): E78.5 - Hyperlipidemia, unspecified Category: Medical (8) Atrial fibrillation Current Visit: Yes Status: Acute Code(s): I48.91 - Unspecified atrial fibrillation Qualifiers: Atrial fibrillation type: chronic Qualified Code(s): I48.2 - Chronic atrial fibrillation Category: Medical (9) Hypertension Current Visit: Yes Status: Chronic Code(s): I10 - Essential (primary) hypertension Qualifiers: Hypertension type: essential hypertension Qualified Code(s): I10 - Essential (primary) hypertension Category: Medical
== END 2018-04-14 16:07 | disposition home or self-care (01) | DRG 189 ==
LOC: ER 11:20 → MED/SURG 13:47
PROVIDERS: ADMIT Internal Medicine; ATTEND Internal Medicine

== ENCOUNTER 2018-11-10 02:43 | Inpatient (IN) ==
[2018-11-10] MEDS ORDERED: Sodium Chloride 0.9% 1,000 ML PRIMARY IV ONE (03:05)
[2018-11-10] MEDS ORDERED: IPRATROPIUM/ALBUTEROL SULFATE 3 ML NEB NEB ONE ×3 (03:06→04:27)
[2018-11-10 03:16] LABS: Hematocrit [HCT] 39.8 % (42.0-52.0); RED BLOOD COUNT 3.87 10^6/uL (4.70-6.10)
[2018-11-10 03:17] LABS: BASOPHILS # (AUTO) 0.03 10*3/UL; BASOPHILS % (AUTO) 0.5 % (0-1); EOSINOPHILS # (AUTO) 0.11 10*3/UL; EOSINOPHILS % (AUTO) 1.8 % (0-8); LYMPHOCYTES # (AUTO) 1.43 10*3/uL; MEAN CORPUSCULAR HGB CONC 32.7 g/dL (33-37); MEAN CORPUSCULAR VOLUME 102.8 FL (80-90); MEAN PLATELET VOLUME 11.2 FL (7.4-12.2); NEUTROPHILS # (AUTO) 3.84 10*3/UL; NEUTROPHILS % (AUTO) 63.7 % (50-80); PLATELET MORPHOLOGY COMMENT NORMAL MORPHOLOGY (NORM); RBC MORPHOLOGY COMMENT NORMAL MORPHOLOGY (NORM); WBC MORPHOLOGY COMMENT NORMAL MORPHOLOGY (NORM)
[2018-11-10] MEDS: ASPIRIN 81 MG (BABY) CHEWABLE TABLET PO ONE ×2 (03:17→03:20)
[2018-11-10] MEDS ORDERED: CLOPIDOGREL 75 MG TABLET PO ONE (03:20)
[2018-11-10 03:22] LABS: SERUM ALBUMIN 4.2 g/dL (3.5-4.8)
[2018-11-10 03:22] LABS: VENOUS PCO2 48.2 mmHg (45-55); VENOUS PH 7.37 (7.32-7.42)
[2018-11-10] MEDS ORDERED: LIDOCAINE W/ SODIUM BICARB 0.5 ML SYR SUBD PRN (06:14)
[2018-11-10] MEDS ORDERED: ALBUTEROL SULFATE 2.5 MG/3 ML NEB PRN (06:14)
[2018-11-10] MEDS ORDERED: HYDROcodone-APAP 10 MG-325 MG TABLET PO PRN (06:14)
[2018-11-10 06:53] LABS: VENOUS PH 7.31 (7.32-7.42)
[2018-11-10] MEDS: FUROSEMIDE 20 MG TABLET PO SCH ×2 (07:02→12:37)
[2018-11-10] MEDS: PANTOPRAZOLE 40 MG TABLET PO SCH (07:02)
[2018-11-10] MEDS ORDERED: methylPREDNISolone 125 MG/2 ML VIAL IVP ONE (07:30)
[2018-11-10] MEDS: IPRATROPIUM/ALBUTEROL SULFATE 3 ML NEB NEB SCH ×4 (07:44→19:39)
[2018-11-10] MEDS: ARFORMOTEROL NEB SOLN 15 MCG/2 ML NEB SCH ×2 (07:46→19:38)
[2018-11-10] MEDS: UMECLIDINIUM BROMIDE INH SCH (07:55)
[2018-11-10] MEDS ORDERED: ATORVASTATIN 40 MG TABLET PO SCH (09:00)
[2018-11-10] MEDS: GABAPENTIN 300 MG CAPSULE PO SCH ×2 (09:15→21:18)
[2018-11-10] MEDS: TAMSULOSIN 0.4 MG CAPSULE PO SCH (09:16)
[2018-11-10] MEDS: Metoprolol TARTRATE Tab 25 MG TAB PO SCH ×2 (09:16→21:19)
[2018-11-10] MEDS: predniSONE Tab 20 MG TAB PO SCH (09:16)
[2018-11-10] MEDS: Apixaban 5 MG TABLET PO SCH ×2 (09:16→21:18)
[2018-11-10] MEDS: FOLIC ACID 1 MG TABLET PO SCH (09:17)
[2018-11-10] MEDS: Sertraline Tab 50 MG TAB PO SCH (09:17)
[2018-11-10] MEDS: ACIDOPHILUS/BULGARICUS CHEWABLE TABLET PO SCH (09:17)
[2018-11-10] MEDS: ATORVASTATIN 40 MG TABLET PO SCH (21:18)
[2018-11-11] MEDS: Senna/Docusate Tab 1 TAB TAB PO SCH ×2 (00:34→20:14)
[2018-11-11 05:35] LABS: Hematocrit [HCT] 35.9 % (42.0-52.0); Hemoglobin [HGB] 11.8 g/dL (14.0-18.0); MEAN CORPUSCULAR VOLUME 102.9 FL (80-90); RED BLOOD COUNT 3.49 10^6/uL (4.70-6.10)
[2018-11-11 05:36] LABS: BASOPHILS # (AUTO) 0.02 10*3/UL; BASOPHILS % (AUTO) 0.3 % (0-1); BUN/CREATININE RATIO 21.11 (6-20); EOSINOPHILS # (AUTO) 0 10*3/UL; EOSINOPHILS % (AUTO) 0 % (0-8); LYMPHOCYTES # (AUTO) 0.98 10*3/uL; MEAN CORPUSCULAR HGB CONC 32.9 g/dL (33-37); MEAN PLATELET VOLUME 11.7 FL (7.4-12.2); MONOCYTES # (AUTO) 0.71 10*3/UL (0.3-0.8); MONOCYTES % (AUTO) 12 % (5-15); NEUTROPHILS # (AUTO) 4.19 10*3/UL; NEUTROPHILS % (AUTO) 70.7 % (50-80); PLATELET MORPHOLOGY COMMENT NORMAL MORPHOLOGY (NORM); RBC MORPHOLOGY COMMENT NORMAL MORPHOLOGY (NORM); WBC MORPHOLOGY COMMENT NORMAL MORPHOLOGY (NORM)
[2018-11-11] MEDS: IPRATROPIUM/ALBUTEROL SULFATE 3 ML NEB NEB SCH ×4 (06:28→18:45)
[2018-11-11] MEDS: ARFORMOTEROL NEB SOLN 15 MCG/2 ML NEB SCH ×2 (06:32→18:44)
[2018-11-11] MEDS: FUROSEMIDE 20 MG TABLET PO SCH ×2 (07:09→13:37)
[2018-11-11] MEDS: PANTOPRAZOLE 40 MG TABLET PO SCH (07:09)
[2018-11-11] MEDS: UMECLIDINIUM BROMIDE INH SCH (07:42)
[2018-11-11] MEDS: Apixaban 5 MG TABLET PO SCH ×2 (09:02→20:14)
[2018-11-11] MEDS: GABAPENTIN 300 MG CAPSULE PO SCH ×2 (09:02→20:14)
[2018-11-11] MEDS: Metoprolol TARTRATE Tab 25 MG TAB PO SCH ×2 (09:02→20:14)
[2018-11-11] MEDS: TAMSULOSIN 0.4 MG CAPSULE PO SCH (09:02)
[2018-11-11] MEDS: Sertraline Tab 50 MG TAB PO SCH (09:03)
[2018-11-11] MEDS: ACIDOPHILUS/BULGARICUS CHEWABLE TABLET PO SCH (09:03)
[2018-11-11] MEDS: predniSONE Tab 20 MG TAB PO SCH (09:03)
[2018-11-11] MEDS: FOLIC ACID 1 MG TABLET PO SCH (09:03)
[2018-11-11] MEDS: ATORVASTATIN 40 MG TABLET PO SCH (20:15)
[2018-11-12] MEDS: ARFORMOTEROL NEB SOLN 15 MCG/2 ML NEB SCH ×2 (06:18→19:10)
[2018-11-12] MEDS: IPRATROPIUM/ALBUTEROL SULFATE 3 ML NEB NEB SCH ×4 (06:19→19:11)
[2018-11-12] MEDS: FUROSEMIDE 20 MG TABLET PO SCH ×2 (07:24→12:38)
[2018-11-12] MEDS: PANTOPRAZOLE 40 MG TABLET PO SCH (07:24)
[2018-11-12 09:09] LABS: VENOUS PH 7.31 (7.32-7.42)
[2018-11-12] MEDS: AZITHROMYCIN 250 MG TABLET PO SCH (09:45)
[2018-11-12] MEDS: FOLIC ACID 1 MG TABLET PO SCH (09:45)
[2018-11-12] MEDS: GABAPENTIN 300 MG CAPSULE PO SCH ×2 (09:45→20:18)
[2018-11-12] MEDS: ACIDOPHILUS/BULGARICUS CHEWABLE TABLET PO SCH (09:45)
[2018-11-12] MEDS: TAMSULOSIN 0.4 MG CAPSULE PO SCH (09:45)
[2018-11-12] MEDS: Metoprolol TARTRATE Tab 25 MG TAB PO SCH ×2 (09:46→20:19)
[2018-11-12] MEDS: predniSONE Tab 20 MG TAB PO SCH (09:46)
[2018-11-12] MEDS: Sertraline Tab 50 MG TAB PO SCH (09:47)
[2018-11-12] MEDS: Apixaban 5 MG TABLET PO SCH ×2 (09:47→20:19)
[2018-11-12] MEDS: UMECLIDINIUM BROMIDE INH SCH ×2 (14:58→16:59)
[2018-11-12] MEDS: ATORVASTATIN 40 MG TABLET PO SCH (20:18)
[2018-11-12] MEDS: Senna/Docusate Tab 1 TAB TAB PO SCH (20:18)
[2018-11-13] MEDS: ARFORMOTEROL NEB SOLN 15 MCG/2 ML NEB SCH (06:27)
[2018-11-13] MEDS: IPRATROPIUM/ALBUTEROL SULFATE 3 ML NEB NEB SCH ×2 (06:28→11:03)
[2018-11-13] MEDS: UMECLIDINIUM BROMIDE INH SCH (06:28)
[2018-11-13 06:42] VITALS: BP 132/91; TEMP 97.4
[2018-11-13] MEDS: PANTOPRAZOLE 40 MG TABLET PO SCH (06:56)
[2018-11-13] MEDS: FUROSEMIDE 20 MG TABLET PO SCH (06:56)
[2018-11-13] MEDS: AZITHROMYCIN 250 MG TABLET PO SCH (08:08)
[2018-11-13] MEDS: TAMSULOSIN 0.4 MG CAPSULE PO SCH (08:08)
[2018-11-13] MEDS: ACIDOPHILUS/BULGARICUS CHEWABLE TABLET PO SCH (08:08)
[2018-11-13] MEDS: predniSONE Tab 20 MG TAB PO SCH (08:08)
[2018-11-13] MEDS: Sertraline Tab 50 MG TAB PO SCH (08:08)
[2018-11-13] MEDS: GABAPENTIN 300 MG CAPSULE PO SCH (08:08)
[2018-11-13] MEDS: FOLIC ACID 1 MG TABLET PO SCH (08:08)
[2018-11-13] MEDS: Metoprolol TARTRATE Tab 25 MG TAB PO SCH (08:09)
[2018-11-13] MEDS: Apixaban 5 MG TABLET PO SCH (08:09)
[2018-11-13 11:05] VITALS: RESP 18; O2SAT 95
[2018-11-13] MEDS ORDERED: UMECLIDINIUM BROMIDE INH SCH (16:45)
== END 2018-11-13 11:27 | disposition swing bed (61) | DRG 192 ==
LOC: ER 02:43 → MED/SURG 05:01
PROVIDERS: ADMIT Family Medicine; ATTEND Family Medicine

== ENCOUNTER 2018-11-18 16:57 | Inpatient (IN) ==
[2018-11-18] MEDS ORDERED: methylPREDNISolone 125 MG/2 ML VIAL IVP ONE (17:04)
[2018-11-18] MEDS ORDERED: IPRATROPIUM/ALBUTEROL SULFATE 3 ML NEB NEB ONE (17:08)
[2018-11-18] MEDS ORDERED: Cefepime Inj 2 GM in Sodium Chloride 0.9% 100 ML IV ONE (17:10)
[2018-11-18 17:13] LABS: VENOUS PH 7.44 (7.32-7.42)
[2018-11-18 17:38] LABS: BUN/CREATININE RATIO 21.25 (6-20); SERUM ALBUMIN 4.2 g/dL (3.5-4.8)
[2018-11-18 17:43] LABS: Hematocrit [HCT] 40.9 % (42.0-52.0); Hemoglobin [HGB] 13.2 g/dL (14.0-18.0); MEAN CORPUSCULAR HGB CONC 32.3 g/dL (33-37); MEAN PLATELET VOLUME 11.9 FL (7.4-12.2); RED BLOOD COUNT 3.97 10^6/uL (4.70-6.10)
[2018-11-18 17:44] LABS: BASOPHILS # (AUTO) 0.02 10*3/UL; BASOPHILS % (AUTO) 0.1 % (0-1); EOSINOPHILS # (AUTO) 0.05 10*3/UL; EOSINOPHILS % (AUTO) 0.3 % (0-8); LYMPHOCYTES # (AUTO) 1.22 10*3/uL; MONOCYTES # (AUTO) 1.44 10*3/UL (0.3-0.8); MONOCYTES % (AUTO) 9.9 % (5-15); NEUTROPHILS % (AUTO) 80.9 % (50-80); PLATELET MORPHOLOGY COMMENT NORMAL MORPHOLOGY (NORM); RBC MORPHOLOGY COMMENT NORMAL MORPHOLOGY (NORM); WBC MORPHOLOGY COMMENT NORMAL MORPHOLOGY (NORM)
[2018-11-18] MEDS ORDERED: FUROSEMIDE 10 MG/1 ML - 4 ML IVP ONE (18:15)
[2018-11-18] MEDS ORDERED: ACETAMINOPHEN 325 MG TABLET PO ONE (18:18)
[2018-11-18] MEDS ORDERED: ALBUTEROL SULFATE 2.5 MG/3 ML NEB PRN (19:38)
[2018-11-18] MEDS ORDERED: Vancomycin-PHA to Dose IV SCH (19:38)
[2018-11-18] MEDS ORDERED: HYDROCORTISONE CREAM 2.5% 30 GM TUBE TOPICAL PRN (19:38)
[2018-11-18] MEDS ORDERED: LIDOCAINE W/ SODIUM BICARB 0.5 ML SYR SUBD PRN (19:38)
[2018-11-18] MEDS ORDERED: Vancomycin Inj 1gm vial ONE (20:28)
[2018-11-18] MEDS: Apixaban 5 MG TABLET PO SCH (20:33)
[2018-11-18] MEDS: Senna/Docusate Tab 1 TAB TAB PO SCH (20:33)
[2018-11-18] MEDS: Metoprolol TARTRATE Tab 25 MG TAB PO SCH (20:34)
[2018-11-18] MEDS: IPRATROPIUM/ALBUTEROL SULFATE 3 ML NEB NEB SCH (20:38)
[2018-11-18] MEDS: Gabapentin 600 MG TABLET PO SCH ×2 (20:40→20:53)
[2018-11-18] MEDS: CLOTRIMAZOLE TOPICAL SCH (20:54)
[2018-11-18] MEDS: BETAMETHASONE DIP TOPICAL SCH (20:54)
[2018-11-18] MEDS ORDERED: diphenhydrAMINE 25 MG CAPSULE PO ONE (21:28)
[2018-11-18] MEDS ORDERED: predniSONE Tab 20 MG TAB PO ONE ×3 (21:29→21:41)
[2018-11-19] MEDS: Cefepime Inj 2 GM in Sodium Chloride 0.9% 100 ML IV SCH ×3 (00:36→17:04)
[2018-11-19] MEDS ORDERED: diphenhydrAMINE 25 MG CAPSULE PO ONE ×2 (04:30→09:30)
[2018-11-19] MEDS ORDERED: predniSONE Tab 20 MG TAB PO ONE ×2 (04:30→09:30)
[2018-11-19 05:33] LABS: BASOPHILS # (AUTO) 0 10*3/UL; BASOPHILS % (AUTO) 0 % (0-1); EOSINOPHILS # (AUTO) 0.01 10*3/UL; EOSINOPHILS % (AUTO) 0.1 % (0-8); Hematocrit [HCT] 40.6 % (42.0-52.0); LYMPHOCYTES # (AUTO) 0.63 10*3/uL; MEAN CORPUSCULAR VOLUME 103.3 FL (80-90); MEAN PLATELET VOLUME 12.5 FL (7.4-12.2); MONOCYTES # (AUTO) 0.24 10*3/UL (0.3-0.8); MONOCYTES % (AUTO) 1.9 % (5-15); NEUTROPHILS # (AUTO) 11.87 10*3/UL; NEUTROPHILS % (AUTO) 92.9 % (50-80); RED BLOOD COUNT 3.93 10^6/uL (4.70-6.10)
[2018-11-19 05:47] LABS: PLATELET MORPHOLOGY COMMENT NORMAL MORPHOLOGY (NORM); RBC MORPHOLOGY COMMENT NORMAL MORPHOLOGY (NORM); WBC MORPHOLOGY COMMENT NORMAL MORPHOLOGY (NORM)
[2018-11-19 05:58] LABS: BUN/CREATININE RATIO 23.33 (6-20)
[2018-11-19] MEDS: IPRATROPIUM/ALBUTEROL SULFATE 3 ML NEB NEB SCH ×4 (06:56→19:46)
[2018-11-19] MEDS: PANTOPRAZOLE 40 MG TABLET PO SCH (07:08)
[2018-11-19] MEDS: FUROSEMIDE 20 MG TABLET PO SCH ×2 (07:08→13:09)
[2018-11-19] MEDS: FOLIC ACID 1 MG TABLET PO SCH (08:24)
[2018-11-19] MEDS: Gabapentin 600 MG TABLET PO SCH ×2 (08:24→20:23)
[2018-11-19] MEDS: Thiamine Tab 100 MG TAB PO SCH (08:24)
[2018-11-19] MEDS: ACIDOPHILUS/BULGARICUS CHEWABLE TABLET PO SCH (08:24)
[2018-11-19] MEDS: POTASSIUM CHLORIDE 20 MEQ TAB PO SCH (08:24)
[2018-11-19] MEDS: Metoprolol TARTRATE Tab 25 MG TAB PO SCH ×2 (08:25→20:23)
[2018-11-19] MEDS: TAMSULOSIN 0.4 MG CAPSULE PO SCH (08:25)
[2018-11-19] MEDS: ATORVASTATIN 40 MG TABLET PO SCH (08:25)
[2018-11-19] MEDS: ASCORBIC ACID Chewable 500 MG TABLET PO SCH (08:25)
[2018-11-19] MEDS: Sertraline Tab 50 MG TAB PO SCH (08:25)
[2018-11-19] MEDS: Apixaban 5 MG TABLET PO SCH ×2 (08:25→20:22)
[2018-11-19] MEDS ORDERED: Sodium Chloride 0.9% 500 ML ONE (08:31)
[2018-11-19] MEDS: UMECLIDINIUM BROMIDE 62.5 MCG INH SCH (11:25)
[2018-11-19] MEDS ORDERED: Influenza 19-20 Vaccine (6mo+) 60 MCG/0.5 ML SYRINGE IM ONE (13:45)
[2018-11-19] MEDS: CLOTRIMAZOLE TOPICAL SCH (19:10)
[2018-11-19] MEDS: BETAMETHASONE DIP TOPICAL SCH (19:10)
[2018-11-19] MEDS: Senna/Docusate Tab 1 TAB TAB PO SCH (20:22)
[2018-11-20] MEDS: Cefepime Inj 2 GM in Sodium Chloride 0.9% 100 ML IV SCH ×3 (00:16→18:59)
[2018-11-20] MEDS: HYDROcodone-APAP 10 MG-325 MG TABLET PO PRN (04:28)
[2018-11-20 05:28] LABS: BUN/CREATININE RATIO 25.55 (6-20)
[2018-11-20 05:41] LABS: BASOPHILS # (AUTO) 0 10*3/UL; BASOPHILS % (AUTO) 0 % (0-1); EOSINOPHILS # (AUTO) 0.02 10*3/UL; EOSINOPHILS % (AUTO) 0.2 % (0-8); Hematocrit [HCT] 35.6 % (42.0-52.0); Hemoglobin [HGB] 11.5 g/dL (14.0-18.0); MEAN CORPUSCULAR HGB CONC 32.3 g/dL (33-37); MEAN PLATELET VOLUME 12.5 FL (7.4-12.2); MONOCYTES # (AUTO) 1.49 10*3/UL (0.3-0.8); MONOCYTES % (AUTO) 13.3 % (5-15); NEUTROPHILS # (AUTO) 8.63 10*3/UL; NEUTROPHILS % (AUTO) 77.2 % (50-80); RED BLOOD COUNT 3.49 10^6/uL (4.70-6.10)
[2018-11-20 05:47] LABS: PLATELET MORPHOLOGY COMMENT NORMAL MORPHOLOGY (NORM); RBC MORPHOLOGY COMMENT NORMAL MORPHOLOGY (NORM); WBC MORPHOLOGY COMMENT NORMAL MORPHOLOGY (NORM)
[2018-11-20] MEDS: IPRATROPIUM/ALBUTEROL SULFATE 3 ML NEB NEB SCH ×2 (06:24→10:33)
[2018-11-20] MEDS: UMECLIDINIUM BROMIDE 62.5 MCG INH SCH ×2 (06:27→10:35)
[2018-11-20] MEDS: PANTOPRAZOLE 40 MG TABLET PO SCH (08:18)
[2018-11-20] MEDS: FUROSEMIDE 20 MG TABLET PO SCH ×2 (08:19→14:45)
[2018-11-20] MEDS ORDERED: Vancomycin Inj 1gm vial ONE (08:55)
[2018-11-20] MEDS: POTASSIUM CHLORIDE 20 MEQ TAB PO SCH (09:37)
[2018-11-20] MEDS: Gabapentin 600 MG TABLET PO SCH ×2 (09:37→21:00)
[2018-11-20] MEDS: ASCORBIC ACID Chewable 500 MG TABLET PO SCH (09:37)
[2018-11-20] MEDS: Apixaban 5 MG TABLET PO SCH ×2 (09:37→21:00)
[2018-11-20] MEDS: Thiamine Tab 100 MG TAB PO SCH (09:37)
[2018-11-20] MEDS: TAMSULOSIN 0.4 MG CAPSULE PO SCH (09:37)
[2018-11-20] MEDS: ACIDOPHILUS/BULGARICUS CHEWABLE TABLET PO SCH (09:37)
[2018-11-20] MEDS: ATORVASTATIN 40 MG TABLET PO SCH (09:38)
[2018-11-20] MEDS: Metoprolol TARTRATE Tab 25 MG TAB PO SCH ×2 (09:38→21:00)
[2018-11-20] MEDS: FOLIC ACID 1 MG TABLET PO SCH (09:38)
[2018-11-20] MEDS: Sertraline Tab 50 MG TAB PO SCH (09:38)
[2018-11-20] MEDS: ALBUTEROL SULFATE 2.5 MG/3 ML NEB SCH ×2 (14:49→18:53)
[2018-11-20] MEDS: Senna/Docusate Tab 1 TAB TAB PO SCH (21:00)
[2018-11-20] MEDS: CLOTRIMAZOLE TOPICAL SCH (21:26)
[2018-11-20] MEDS: BETAMETHASONE DIP TOPICAL SCH (21:26)
[2018-11-21] MEDS: HYDROcodone-APAP 10 MG-325 MG TABLET PO PRN (00:35)
[2018-11-21] MEDS: Cefepime Inj 2 GM in Sodium Chloride 0.9% 100 ML IV SCH ×3 (04:08→20:16)
[2018-11-21] MEDS: PANTOPRAZOLE 40 MG TABLET PO SCH (06:29)
[2018-11-21] MEDS: FUROSEMIDE 20 MG TABLET PO SCH ×2 (06:29→12:30)
[2018-11-21] MEDS: ALBUTEROL SULFATE 2.5 MG/3 ML NEB SCH ×4 (06:43→19:38)
[2018-11-21] MEDS: UMECLIDINIUM BROMIDE INH SCH (06:46)
[2018-11-21] MEDS: Metoprolol TARTRATE Tab 25 MG TAB PO SCH ×2 (08:13→21:44)
[2018-11-21] MEDS: ASCORBIC ACID Chewable 500 MG TABLET PO SCH (08:13)
[2018-11-21] MEDS: ATORVASTATIN 40 MG TABLET PO SCH (08:13)
[2018-11-21] MEDS: Thiamine Tab 100 MG TAB PO SCH (08:14)
[2018-11-21] MEDS: Gabapentin 600 MG TABLET PO SCH ×2 (08:14→21:44)
[2018-11-21] MEDS: TAMSULOSIN 0.4 MG CAPSULE PO SCH (08:14)
[2018-11-21] MEDS: FOLIC ACID 1 MG TABLET PO SCH (08:14)
[2018-11-21] MEDS: Apixaban 5 MG TABLET PO SCH ×2 (08:14→21:44)
[2018-11-21] MEDS: Sertraline Tab 50 MG TAB PO SCH (08:14)
[2018-11-21] MEDS: ACIDOPHILUS/BULGARICUS CHEWABLE TABLET PO SCH (08:15)
[2018-11-21] MEDS: POTASSIUM CHLORIDE 20 MEQ TAB PO SCH (08:15)
[2018-11-21] MEDS ORDERED: Sodium Chloride 0.9% 250 ML ONE (20:10)
[2018-11-21] MEDS: Senna/Docusate Tab 1 TAB TAB PO SCH (21:44)
[2018-11-21] MEDS: CLOTRIMAZOLE TOPICAL SCH (21:52)
[2018-11-21] MEDS: BETAMETHASONE DIP TOPICAL SCH (21:52)
[2018-11-22] MEDS ORDERED: CEFEPIME 2 GM VIAL ONE (04:02)
[2018-11-22] MEDS ORDERED: Sodium Chloride 0.9% 100 ML IV ONE (04:08)
[2018-11-22] MEDS: Cefepime Inj 2 GM in Sodium Chloride 0.9% 100 ML IV SCH ×3 (04:18→21:54)
[2018-11-22 05:32] LABS: BASOPHILS # (AUTO) 0.01 10*3/UL; BASOPHILS % (AUTO) 0.1 % (0-1); EOSINOPHILS # (AUTO) 0.11 10*3/UL; EOSINOPHILS % (AUTO) 1.5 % (0-8); Hematocrit [HCT] 38.6 % (42.0-52.0); Hemoglobin [HGB] 12.1 g/dL (14.0-18.0); LYMPHOCYTES # (AUTO) 0.98 10*3/uL; MEAN CORPUSCULAR HGB CONC 31.3 g/dL (33-37); MEAN CORPUSCULAR VOLUME 102.9 FL (80-90); MEAN PLATELET VOLUME 12.4 FL (7.4-12.2); MONOCYTES # (AUTO) 1.41 10*3/UL (0.3-0.8); MONOCYTES % (AUTO) 19.2 % (5-15); NEUTROPHILS # (AUTO) 4.81 10*3/UL; NEUTROPHILS % (AUTO) 65.5 % (50-80); RED BLOOD COUNT 3.75 10^6/uL (4.70-6.10)
[2018-11-22 05:36] LABS: PLATELET MORPHOLOGY COMMENT NORMAL MORPHOLOGY (NORM); RBC MORPHOLOGY COMMENT NORMAL MORPHOLOGY (NORM); WBC MORPHOLOGY COMMENT NORMAL MORPHOLOGY (NORM)
[2018-11-22 05:42] LABS: BUN/CREATININE RATIO 22.5 (6-20); SERUM ALBUMIN 3.7 g/dL (3.5-4.8)
[2018-11-22] MEDS: PANTOPRAZOLE 40 MG TABLET PO SCH (06:42)
[2018-11-22] MEDS: FUROSEMIDE 20 MG TABLET PO SCH ×2 (06:42→12:07)
[2018-11-22] MEDS: ALBUTEROL SULFATE 2.5 MG/3 ML NEB SCH ×4 (06:46→19:39)
[2018-11-22] MEDS: UMECLIDINIUM BROMIDE INH SCH (08:22)
[2018-11-22] MEDS: POTASSIUM CHLORIDE 20 MEQ TAB PO SCH (08:33)
[2018-11-22] MEDS: Sertraline Tab 50 MG TAB PO SCH (08:33)
[2018-11-22] MEDS: FOLIC ACID 1 MG TABLET PO SCH (08:33)
[2018-11-22] MEDS: Gabapentin 600 MG TABLET PO SCH ×2 (08:33→21:54)
[2018-11-22] MEDS: Apixaban 5 MG TABLET PO SCH ×2 (08:33→21:54)
[2018-11-22] MEDS: ATORVASTATIN 40 MG TABLET PO SCH (08:33)
[2018-11-22] MEDS: ACIDOPHILUS/BULGARICUS CHEWABLE TABLET PO SCH (08:33)
[2018-11-22] MEDS: TAMSULOSIN 0.4 MG CAPSULE PO SCH (08:33)
[2018-11-22] MEDS: ASCORBIC ACID Chewable 500 MG TABLET PO SCH (08:33)
[2018-11-22] MEDS: Metoprolol TARTRATE Tab 25 MG TAB PO SCH ×2 (08:33→21:55)
[2018-11-22] MEDS: Thiamine Tab 100 MG TAB PO SCH (08:33)
[2018-11-22] MEDS: predniSONE Tab 20 MG TAB PO SCH (12:07)
[2018-11-22] MEDS: Senna/Docusate Tab 1 TAB TAB PO SCH (21:56)
[2018-11-22] MEDS: CLOTRIMAZOLE TOPICAL SCH (22:35)
[2018-11-22] MEDS: BETAMETHASONE DIP TOPICAL SCH (22:35)
[2018-11-22] MEDS: HYDROcodone-APAP 10 MG-325 MG TABLET PO PRN (22:38)
[2018-11-23] MEDS: HYDROcodone-APAP 10 MG-325 MG TABLET PO PRN ×2 (02:08→13:24)
[2018-11-23] MEDS ORDERED: IPRATROPIUM/ALBUTEROL SULFATE 3 ML NEB NEB PRN (04:01)
[2018-11-23] MEDS ORDERED: LORazepam 2 MG/1 ML VIAL IVP ONE (04:05)
[2018-11-23] MEDS ORDERED: ALBUTEROL SULFATE 2.5 MG/3 ML NEB PRN (04:12)
[2018-11-23] MEDS: UMECLIDINIUM BROMIDE INH SCH (06:36)
[2018-11-23] MEDS: ALBUTEROL SULFATE 2.5 MG/3 ML NEB SCH ×4 (06:36→18:34)
[2018-11-23] MEDS: Cefepime Inj 2 GM in Sodium Chloride 0.9% 100 ML IV SCH ×3 (06:56→19:40)
[2018-11-23] MEDS: PANTOPRAZOLE 40 MG TABLET PO SCH (06:57)
[2018-11-23] MEDS: FUROSEMIDE 20 MG TABLET PO SCH ×2 (06:57→13:14)
[2018-11-23] MEDS: ATORVASTATIN 40 MG TABLET PO SCH (08:50)
[2018-11-23] MEDS: Gabapentin 600 MG TABLET PO SCH ×2 (08:50→20:56)
[2018-11-23] MEDS: Thiamine Tab 100 MG TAB PO SCH (08:51)
[2018-11-23] MEDS: predniSONE Tab 20 MG TAB PO SCH (08:51)
[2018-11-23] MEDS: TAMSULOSIN 0.4 MG CAPSULE PO SCH (08:51)
[2018-11-23] MEDS: ASCORBIC ACID Chewable 500 MG TABLET PO SCH (08:51)
[2018-11-23] MEDS: Sertraline Tab 50 MG TAB PO SCH (08:52)
[2018-11-23] MEDS: FOLIC ACID 1 MG TABLET PO SCH (08:52)
[2018-11-23] MEDS: POTASSIUM CHLORIDE 20 MEQ TAB PO SCH (08:52)
[2018-11-23] MEDS: Metoprolol TARTRATE Tab 25 MG TAB PO SCH ×2 (08:53→20:57)
[2018-11-23] MEDS: Apixaban 5 MG TABLET PO SCH ×2 (08:53→20:56)
[2018-11-23] MEDS: ACIDOPHILUS/BULGARICUS CHEWABLE TABLET PO SCH (09:05)
[2018-11-23] MEDS: CLOTRIMAZOLE TOPICAL SCH (19:41)
[2018-11-23] MEDS: BETAMETHASONE DIP TOPICAL SCH (19:41)
[2018-11-23] MEDS: Senna/Docusate Tab 1 TAB TAB PO SCH (20:56)
[2018-11-24] MEDS: HYDROcodone-APAP 10 MG-325 MG TABLET PO PRN ×4 (01:06→21:32)
[2018-11-24] MEDS ORDERED: Sodium Chloride 0.9% 100 ML IV ONE (03:16)
[2018-11-24] MEDS: Cefepime Inj 2 GM in Sodium Chloride 0.9% 100 ML IV SCH ×3 (03:53→21:32)
[2018-11-24] MEDS: ALBUTEROL SULFATE 2.5 MG/3 ML NEB SCH ×4 (06:15→18:52)
[2018-11-24] MEDS: UMECLIDINIUM BROMIDE INH SCH (06:16)
[2018-11-24] MEDS: PANTOPRAZOLE 40 MG TABLET PO SCH (07:07)
[2018-11-24] MEDS: FUROSEMIDE 20 MG TABLET PO SCH ×2 (07:08→12:46)
[2018-11-24] MEDS: POTASSIUM CHLORIDE 20 MEQ TAB PO SCH (09:05)
[2018-11-24] MEDS: TAMSULOSIN 0.4 MG CAPSULE PO SCH (09:05)
[2018-11-24] MEDS: ASCORBIC ACID Chewable 500 MG TABLET PO SCH (09:05)
[2018-11-24] MEDS: ATORVASTATIN 40 MG TABLET PO SCH (09:05)
[2018-11-24] MEDS: Apixaban 5 MG TABLET PO SCH ×2 (09:05→21:33)
[2018-11-24] MEDS: Gabapentin 600 MG TABLET PO SCH ×2 (09:05→21:33)
[2018-11-24] MEDS: FOLIC ACID 1 MG TABLET PO SCH (09:05)
[2018-11-24] MEDS: ACIDOPHILUS/BULGARICUS CHEWABLE TABLET PO SCH (09:05)
[2018-11-24] MEDS: predniSONE Tab 20 MG TAB PO SCH (09:05)
[2018-11-24] MEDS: Metoprolol TARTRATE Tab 25 MG TAB PO SCH ×2 (09:06→21:32)
[2018-11-24] MEDS: Sertraline Tab 50 MG TAB PO SCH (09:06)
[2018-11-24] MEDS: Thiamine Tab 100 MG TAB PO SCH (09:06)
[2018-11-24] MEDS ORDERED: CEFEPIME 2 GM VIAL ONE (12:28)
[2018-11-24 19:45] LABS: BASOPHILS # (AUTO) 0.01 10*3/UL; BASOPHILS % (AUTO) 0.1 % (0-1); EOSINOPHILS # (AUTO) 0 10*3/UL; EOSINOPHILS % (AUTO) 0 % (0-8); Hematocrit [HCT] 37.5 % (42.0-52.0); Hemoglobin [HGB] 11.9 g/dL (14.0-18.0); LYMPHOCYTES # (AUTO) 0.57 10*3/uL; MEAN CORPUSCULAR HGB CONC 31.7 g/dL (33-37); MEAN CORPUSCULAR VOLUME 102.7 FL (80-90); MEAN PLATELET VOLUME 11.8 FL (7.4-12.2); MONOCYTES # (AUTO) 0.41 10*3/UL (0.3-0.8); MONOCYTES % (AUTO) 4.3 % (5-15); NEUTROPHILS # (AUTO) 8.55 10*3/UL; NEUTROPHILS % (AUTO) 89.2 % (50-80); PLATELET MORPHOLOGY COMMENT NORMAL MORPHOLOGY (NORM); RBC MORPHOLOGY COMMENT NORMAL MORPHOLOGY (NORM); RED BLOOD COUNT 3.65 10^6/uL (4.70-6.10); WBC MORPHOLOGY COMMENT NORMAL MORPHOLOGY (NORM)
[2018-11-24 19:54] LABS: BLOOD UREA NITROGEN 19 mg/dL (7-22); BUN/CREATININE RATIO 21.11 (6-20); SERUM ALBUMIN 3.9 g/dL (3.5-4.8)
[2018-11-24] MEDS: BETAMETHASONE DIP TOPICAL SCH (21:31)
[2018-11-24] MEDS: CLOTRIMAZOLE TOPICAL SCH (21:31)
[2018-11-24] MEDS: Senna/Docusate Tab 1 TAB TAB PO SCH (21:32)
[2018-11-25] MEDS: HYDROcodone-APAP 10 MG-325 MG TABLET PO PRN (01:25)
[2018-11-25] MEDS: Cefepime Inj 2 GM in Sodium Chloride 0.9% 100 ML IV SCH ×2 (04:13→12:05)
[2018-11-25] MEDS: ALBUTEROL SULFATE 2.5 MG/3 ML NEB SCH ×2 (06:19→10:39)
[2018-11-25] MEDS: UMECLIDINIUM BROMIDE INH SCH (06:20)
[2018-11-25] MEDS: FUROSEMIDE 20 MG TABLET PO SCH ×2 (07:57→13:14)
[2018-11-25] MEDS: PANTOPRAZOLE 40 MG TABLET PO SCH (07:57)
[2018-11-25] MEDS: POTASSIUM CHLORIDE 20 MEQ TAB PO SCH (09:00)
[2018-11-25] MEDS: ACIDOPHILUS/BULGARICUS CHEWABLE TABLET PO SCH (09:29)
[2018-11-25] MEDS: ATORVASTATIN 40 MG TABLET PO SCH (09:29)
[2018-11-25] MEDS: predniSONE Tab 20 MG TAB PO SCH (09:29)
[2018-11-25] MEDS: Gabapentin 600 MG TABLET PO SCH (09:29)
[2018-11-25] MEDS: TAMSULOSIN 0.4 MG CAPSULE PO SCH (09:29)
[2018-11-25] MEDS: FOLIC ACID 1 MG TABLET PO SCH (09:29)
[2018-11-25] MEDS: ASCORBIC ACID Chewable 500 MG TABLET PO SCH (09:29)
[2018-11-25] MEDS: Apixaban 5 MG TABLET PO SCH (09:29)
[2018-11-25] MEDS: Metoprolol TARTRATE Tab 25 MG TAB PO SCH (09:30)
[2018-11-25] MEDS: Thiamine Tab 100 MG TAB PO SCH (09:30)
[2018-11-25] MEDS: Sertraline Tab 50 MG TAB PO SCH (09:30)
[2018-11-25 13:18] VITALS: BP 135/88; RESP 20; TEMP 97.4; O2SAT 91
== END 2018-11-25 13:56 | DRG 195 ==
LOC: ER 16:57 → MED/SURG 19:19
PROVIDERS: ADMIT Family Medicine; ATTEND Family Medicine